=== PATIENT | male | born 1980 | race Caucasian/White ===

== ENCOUNTER 2021-09-14 15:10 | Inpatient (IN) | payer SELFPAY ==
[2021-09-14] MEDS ORDERED: DOPamine/D5W 800 MG/250 ML 0 MG/0 ML BAG IV ONE (15:22)
[2021-09-14] MEDS ORDERED: MIDAZOLAM 5 MG/5 ML INJ MDV IV ONE (15:31)
[2021-09-14] MEDS ORDERED: SODIUM CHLORIDE 0.9% 1000 ML 1,000 ML IV ONE (15:33)
--- NOTE | 2021-09-14 15:42 | Emergency Department Report ---
<SAMUEL SHEETS S - Last Filed: 09/15/21 08:24> ED CPR HPI - General Stated Complaint: CARDIAC ARREST Time Seen by Provider: 09/14/21 15:32 Source: family, RN notes reviewed - History of Present Illness MD Complaint: stopped breathing -: minute(s) (10) Place: street Bystander CPR Performed: Yes AED Applied by Bystander/Energy Conservation Engineer: Yes Initial Findings in the Field: agonal, VTACH/VFIB ROSC in the Field: No - Related Data Home Medications Medication Instructions Recorded Confirmed Last Taken Ipratropium/Albuter (Nf) 2 puff IH QID 09/15/21 09/15/21 Unknown [Combivent (Nf)] Allergies Allergy/AdvReac Type Severity Reaction Status Date / Time No Known Allergies Allergy Unverified 09/14/21 16:23 ED Review of Systems Constitutional: denies: chills, fever Eyes: denies: eye pain, eye discharge, vision change ENT: denies: ear pain, throat pain Respiratory: denies: cough, shortness of breath, wheezing Cardiovascular: denies: chest pain, palpitations Endocrine: no symptoms reported Gastrointestinal: denies: abdominal pain, nausea, diarrhea Genitourinary: denies: urgency, dysuria Musculoskeletal: denies: back pain, joint swelling, arthralgia Skin: denies: rash, lesions Neurological: denies: headache, weakness, paresthesias Psychiatric: denies: anxiety, depression Hematological/Lymphatic: denies: easy bleeding, easy bruising ED Past Medical Hx - Past Medical History Previous Medical History?: No - Medications Home Medications: Home Medications Medication Instructions Recorded Confirmed Last Taken Type Ipratropium/Albuter (Nf) 2 puff IH QID 09/15/21 09/15/21 Unknown History [Combivent (Nf)] ED Physical Exam - General General appearance: alert, in no apparent distress - Head Head exam: Present: atraumatic, normocephalic - Eye Eye exam: Present: normal appearance - ENT ENT exam: Present: mucous membranes moist - Neck Neck exam: Present: normal inspection - Respiratory Respiratory exam: Present: normal lung sounds bilaterally. Absent: respiratory distress - Cardiovascular Cardiovascular Exam: Present: regular rate, normal rhythm. Absent: systolic murmur, diastolic murmur, rubs, gallop - GI/Abdominal GI/Abdominal exam: Present: soft, normal bowel sounds - Rectal Rectal exam: Present: deferred - Extremities Exam Extremities exam: Present: normal inspection - Back Exam Back exam: Present: normal inspection - Neurological Exam Neurological exam: Present: alert, oriented X3 - Psychiatric Psychiatric exam: Present: normal affect, normal mood - Skin Skin exam: Present: warm, dry, intact, normal color. Absent: rash ED Medical Decision Making - Lab Data Result diagrams: 09/15/21 00:08 09/15/21 03:36 ED Disposition Clinical Impression: Cardiopulmonary arrest, Hypokalemia STEMI (ST elevation myocardial infarction) Qualifiers: Involved coronary artery: right coronary artery Qualified Code(s): I21.11 - ST elevation (STEMI) myocardial infarction involving right coronary artery Disposition: ADMITTED INPATIENT Condition: Stable <ASHKAN DIXON - Last Filed: 09/15/21 11:37> ED CPR HPI - General Source: family - History of Present Illness Initial Comments: Patient is 41 years old male with no significant past medical history according to his . Patient brought to the emergency room by his in the backseat in a full cardiac arrest. stated that he all of a sudden started jerking and his eyes rolled back. Patient drove immediately to the emergency room and I met the patient in his car and CPR was already started by one of the EMS standing in the ambulance bay. Patient found with agonal breathing. We immedi ately moved patient to main ER. ACLS immediately started. Patient received positive pressure ventilation IV access obtained patient put on the monitor and showed V. fib. Patient immediately received 200 J and 300 mg of amiodarone. Patient still in V. fib and he received 300 J and 360 several times and lidocaine. Patient also received D50, bicarb and calcium chloride. Patient intubated by me using a glide scope. I visualized the tube passing through the vocal cords. Patient regained his pulse. I placed a right femoral central line for resuscitation. For further information please refer to code sheets. Complaint: stopped breathing -: minute(s) Place: street Bystander CPR Performed: Yes Initial Findings in the Field: agonal, VTACH/VFIB ROSC in the Field: No Associated Injuries: No ED Review of Systems ROS: Stated complaint: CARDIAC ARREST Other details as noted in HPI Comment: Unobtainable due to pts medical conditions ED Physical Exam - General General appearance: other (CPR in progress) - Head Head exam: Present: atraumatic, normocephalic, normal inspection - ENT ENT exam: Present: mucous membranes moist - Respiratory Respiratory exam: Present: other (No spontaneous breathing) - Cardiovascular Cardiovascular Exam: Present: other (No spontaneous heart tone) - Neurological Exam Neurological exam: Present: other (Intubated with GCS of 3) - Skin Skin exam: Present: warm, dry, intact, normal color ED Course Vital Signs 09/14/21 15:40 O2 Sat by Pulse 98 Oximetry - Consultations Consultation #1: 09/14/21 15:46 EKG showed anterior STEMI. I immediately activated the cardiac catheterization lab. I sent the EKG to Dr. Ellington, he reviewed the EKG he stated that he is not convinced this is STEMI could be hyperkalemia so he stated that he wanted to proceed with cardiac cath and not to move the patient until we get labs. - Central Line Placement Right Femoral Consent Obtained: emergent situation Time Out Performed: Yes MD Prep: mask, gown, gloves Central Line Prep: Povidone-Iodine 1%, Chlorhexidine scrub, sterile drapes applied Local Anesthesia Used: Lidocaine 2% Central Line Lumen Inserted: triple Reason for Insertion: Volume Resuscitation Bloods Obtained for Lab: Yes Central Line Position: good blood return, all ports aspirated, flus, sutured in place with 2-0 Dressing Applied: Tegaderm, sterile gauze/tape Patient Tolerated Procedure: well, no complications Complications: none - Intubation Sedative: Etomidate Laryngoscope: Tamika Size: 4 ET Tube Size: 7.5 Tube Placement Confirmation: visualized tube passing t, equal breath sounds bilat, no breath sounds over epi, confirmation by capnometr Patient Tolerated Procedure: well, no complications Intubation Complications: none ED Medical Decision Making - Lab Data Result diagrams: 09/15/21 00:08 09/15/21 03:36 Critical Care Time: Yes Critical care time in (mins) excluding proc time.: 45 Critical care attestation.: If time is entered above; I have spent that time in minutes in the direct care of this critically ill patient, excluding procedure time. ED Disposition Is pt being admited?: Yes
--- NOTE | 2021-09-14 16:21 | Emergency Department Report ---
ED CPR HPI - General Chief Complaint: Cardiac Arrest/CPR Stated Complaint: CARDIAC ARREST Time Seen by Provider: 09/14/21 15:32 Source: family Mode of arrival: Stretcher Limitations: Other - History of Present Illness Initial Comments: Note is a follow up sign out note after I assumed care of patient. Initial ED note completed by Dr Joe 41-year-old man status post cardiopulmonary arrest. I assisted Dr. Joe with resuscitation efforts and accepted patient for sign out for continued management. I spoke to patient's who states while eating lunch today patient had complaints of indigestion. He took Pepcid and vomited and felt better. Patient started to feel bad again complaining of chest pain and got in the backseat to lay down. states his eyes began to roll back and became unresponsive and therefore she drove to the hospital. states patient has a history of asthma. She denies that he has a history of [place]/CAD at a young age/in the 40s. He does not smoke cigarettes but does smoke marijuana. A week ago they used home grow mushrooms. She denies cocaine use MD Complaint: stopped breathing Place: street Bystander CPR Performed: Yes Initial Findings in the Field: agonal, VTACH/VFIB ROSC in the Field: No Associated Injuries: No - Related Data Allergies Allergy/AdvReac Type Severity Reaction Status Date / Time No Known Allergies Allergy Unverified 09/14/21 16:23 ED Review of Systems ROS: Stated complaint: CARDIAC ARREST Other details as noted in HPI Comment: Unobtainable due to pts medical conditions ED Physical Exam - General Limitations: Other General appearance: other (CPR in progress) - Other Other exam information: f/u sign out chart, please refer to Dr Joe note for Physical exam. ED Course - Reevaluation(s) Reevaluation #1: 09/14/21 16:27 Patient initially had a prolonged course of ACLS with cardiopulmonary resuscitation directed by Dr. Joe with my assistance. At 4 PM patient had recurrent PEA and required additional resuscitation efforts. Patient received calcium chloride, epinephrine, and sodium bicarb with return of spontaneous circulation. Patient currently on dopamine drip and epinephrine drip. Propofol held. Amiodarone drip to be initiated. Case was rediscussed with Dr. Ellington regarding additional history and he is on the way to the hospital to take patient to Chemical Research Engineer. I called lab requesting stat results given patient's critical condition Reevaluation #2: 09/14/21 16:47 Patient has hypokalemia. 40 mEq of potassium ordered via central line. Magnesium level requested. 09/14/21 16:[address] Chemical Research Engineer prior to administration of potassium And Mag Result. Cath nurse informed of potassium at 2.7 and pending mag ABG pending - Consultations Consultation #1: 09/14/21 16:36 case we discussed with Dr. Ellington after speaking to . Informed that patient had a second cardiac arrest episode. He is on the way to the hospital to perform cath. 09/14/21 I attempted to page Dr. Jacobsen production recorder For ICU consult. I placed the patient myself and did not receive a call back prior to patient admission. Consult ordered ED Medical Decision Making - Lab Data Result diagrams: 09/14/21 15:35 09/14/21 15:35 Lab Results 09/14/21 09/14/21 09/14/21 Range/Units 15:35 15:35 15:35 WBC 6.2 (4.5-11.0) K/mm3 RBC 4.40 (3.65-5.03) M/mm3 Hgb 13.2 (11.8-15.2) gm/dl Hct 43.4 (35.5-45.6) % MCV 99 H (84-94) fl MCH 30 (28-32) pg MCHC 30 L (32-34) % RDW 13.5 (13.2-15.2) % Plt Count 149 (140-440) K/mm3 Lymph % (Auto) 46.5 H (13.4-35.0) % [place] % (Auto) 6.6 (0.0-7.3) % Eos % (Auto) 1.1 (0.0-4.3) % Baso % (Auto) 0.6 (0.0-1.8) % Lymph # (Auto) 2.9 (1.2-5.4) K/mm3 [place] # (Auto) 0.4 (0.0-0.8) K/mm3 Eos # (Auto) 0.1 (0.0-0.4) K/mm3 Baso # (Auto) 0.0 (0.0-0.1) K/mm3 Seg Neutrophils % 45.2 (40.0-70.0) % Seg Neutrophils # 2.8 (1.8-7.7) K/mm3 PT 16.4 H (12.2-14.9) Sec. INR 1.19 H (0.87-1.13) APTT 26.6 (24.2-36.6) Sec. D-Dimer 1400.51 H (0-234) ng/mlDDU ABG pH (7.350-7.450) pH Units ABG pCO2 mm Hg ABG pO2 (80.0-90.0) mm Hg ABG HCO3 (20.0-26.0) mmol/L ABG O2 Saturation (95.0-99.0) % ABG O2 Content (0.0-44) ABG Base Excess (-2.0-3.0) mmol/L ABG Hemoglobin (14.0-18.0) gm/dl ABG Carboxyhemoglobin (0.0-5.0) % ABG Methemoglobin (0.0-1.5) % Oxyhemoglobin (95.0-99.0) % FiO2 % Sodium 138 (137-145) mmol/L Potassium 2.7 L* (3.6-5.0) mmol/L Chloride 95.1 L (98-107) mmol/L Carbon Dioxide 16 L (22-30) mmol/L Anion Gap 30 mmol/L BUN 17 (9-20) mg/dL Creatinine 1.5 H (0.8-1.3) mg/dL Estimated GFR 51 ml/min BUN/Creatinine Ratio 11 % Glucose 432 H (75-100) mg/dL Calcium 10.0 (8.4-10.2) mg/dL Magnesium (1.7-2.3) mg/dL Total Bilirubin (0.1-1.2) mg/dL Direct Bilirubin (0-0.2) mg/dL Indirect Bilirubin mg/dL AST (5-40) units/L ALT (7-56) units/L Alkaline Phosphatase (35-129) units/L Troponin T < 0.010 (0.00-0.029) ng/mL Total Protein (6.3-8.2) g/dL Albumin (3.9-5) g/dL Albumin/Globulin Ratio % Salicylates (2.8-20.0) mg/dL Acetaminophen (10.0-30.0) ug/mL 09/14/21 09/14/21 09/14/21 Range/Units 15:35 15:35 15:35 WBC (4.5-11.0) K/mm3 RBC (3.65-5.03) M/mm3 Hgb (11.8-15.2) gm/dl Hct (35.5-45.6) % MCV (84-94) fl MCH (28-32) pg MCHC (32-34) % RDW (13.2-15.2) % Plt Count (140-440) K/mm3 Lymph % (Auto) (13.4-35.0) % [place] % (Auto) (0.0-7.3) % Eos % (Auto) (0.0-4.3) % Baso % (Auto) (0.0-1.8) % Lymph # (Auto) (1.2-5.4) K/mm3 [place] # (Auto) (0.0-0.8) K/mm3 Eos # (Auto) (0.0-0.4) K/mm3 Baso # (Auto) (0.0-0.1) K/mm3 Seg Neutrophils % (40.0-70.0) % Seg Neutrophils # (1.8-7.7) K/mm3 PT (12.2-14.9) Sec. INR (0.87-1.13) APTT (24.2-36.6) Sec. D-Dimer (0-234) ng/mlDDU ABG pH (7.350-7.450) pH Units ABG pCO2 mm Hg ABG pO2 (80.0-90.0) mm Hg ABG HCO3 (20.0-26.0) mmol/L ABG O2 Saturation (95.0-99.0) % ABG O2 Content (0.0-44) ABG Base Excess (-2.0-3.0) mmol/L ABG Hemoglobin (14.0-18.0) gm/dl ABG Carboxyhemoglobin (0.0-5.0) % ABG Methemoglobin (0.0-1.5) % Oxyhemoglobin (95.0-99.0) % FiO2 % Sodium (137-145) mmol/L Potassium (3.6-5.0) mmol/L Chloride (98-107) mmol/L Carbon Dioxide (22-30) mmol/L Anion Gap mmol/L BUN (9-20) mg/dL Creatinine (0.8-1.3) mg/dL Estimated GFR ml/min BUN/Creatinine Ratio % Glucose (75-100) mg/dL Calcium (8.4-10.2) mg/dL Magnesium (1.7-2.3) mg/dL Total Bilirubin 0.30 (0.1-1.2) mg/dL Direct Bilirubin < 0.2 (0-0.2) mg/dL Indirect Bilirubin 0.1 mg/dL AST 121 H (5-40) units/L ALT 142 H (7-56) units/L Alkaline Phosphatase 64 (35-129) units/L Troponin T (0.00-0.029) ng/mL Total Protein 5.8 L (6.3-8.2) g/dL Albumin 3.2 L (3.9-5) g/dL Albumin/Globulin Ratio 1.2 % Salicylates < 0.3 L (2.8-20.0) mg/dL Acetaminophen 5.0 L (10.0-30.0) ug/mL 09/14/21 09/14/21 Range/Units 15:35 16:30 WBC (4.5-11.0) K/mm3 RBC (3.65-5.03) M/mm3 Hgb (11.8-15.2) gm/dl Hct (35.5-45.6) % MCV (84-94) fl MCH (28-32) pg MCHC (32-34) % RDW (13.2-15.2) % Plt Count (140-440) K/mm3 Lymph % (Auto) (13.4-35.0) % [place] % (Auto) (0.0-7.3) % Eos % (Auto) (0.0-4.3) % Baso % (Auto) (0.0-1.8) % Lymph # (Auto) (1.2-5.4) K/mm3 [place] # (Auto) (0.0-0.8) K/mm3 Eos # (Auto) (0.0-0.4) K/mm3 Baso # (Auto) (0.0-0.1) K/mm3 Seg Neutrophils % (40.0-70.0) % Seg Neutrophils # (1.8-7.7) K/mm3 PT (12.2-14.9) Sec. INR (0.87-1.13) APTT (24.2-36.6) Sec. D-Dimer (0-234) ng/mlDDU ABG pH 7.283 L (7.350-7.450) pH Units ABG pCO2 42.6 mm Hg ABG pO2 376.5 H (80.0-90.0) mm Hg ABG HCO3 19.7 L (20.0-26.0) mmol/L ABG O2 Saturation 99.5 H (95.0-99.0) % ABG O2 Content 21.0 (0.0-44) ABG Base Excess -6.7 L (-2.0-3.0) mmol/L ABG Hemoglobin 14.6 (14.0-18.0) gm/dl ABG Carboxyhemoglobin 1.1 (0.0-5.0) % ABG Methemoglobin 0.6 (0.0-1.5) % Oxyhemoglobin 97.8 (95.0-99.0) % FiO2 100 % Sodium (137-145) mmol/L Potassium (3.6-5.0) mmol/L Chloride (98-107) mmol/L Carbon Dioxide (22-30) mmol/L Anion Gap mmol/L BUN (9-20) mg/dL Creatinine (0.8-1.3) mg/dL Estimated GFR ml/min BUN/Creatinine Ratio % Glucose (75-100) mg/dL Calcium (8.4-10.2) mg/dL Magnesium 2.30 (1.7-2.3) mg/dL Total Bilirubin (0.1-1.2) mg/dL Direct Bilirubin (0-0.2) mg/dL Indirect Bilirubin mg/dL AST (5-40) units/L ALT (7-56) units/L Alkaline Phosphatase (35-129) units/L Troponin T (0.00-0.029) ng/mL Total Protein (6.3-8.2) g/dL Albumin (3.9-5) g/dL Albumin/Globulin Ratio % Salicylates (2.8-20.0) mg/dL Acetaminophen (10.0-30.0) ug/mL - EKG Data -: EKG Interpreted by Me EKG shows normal: sinus rhythm, ST-T waves (anterior lat st elevation) Rate: normal - EKG Data When compared to previous EKG there are: previous EKG unavailable - Medical Decision Making 41-year-old male who had [id number] arrest presenting via private vehicle. Patient initially resuscitated by Dr. Joe with my assistance. I assumed care upon completion of Dr. Joe's shift. After successful resuscitation patient was transferred to the Chemical Research Engineer after EKG revealed anterolateral ST elevation. Patient also noted to have hypokalemia. IV potassium ordered. Case was discussed with patient's , refinery operator assistant, hospitalist with attempted discussion with ICU attending. Critical care's consult was ordered. PT admitted to CCU Critical Care Time: Yes Critical care time in (mins) excluding proc time.: 35 Critical care attestation.: If time is entered above; I have spent that time in minutes in the direct care of this critically ill patient, excluding procedure time. Critical Care Time: 35 Minutes of critical care time excluding procedures were used in the care of the patient. I came immediately to the bedside upon patient's arrival. I discussed treatment plan with the nursing team members. I spoke with family to obtain medical history. Patient required multiple interventions and reassessments. I spoke to cardiac interventionalists, critical care doctor, and hospitalist. ED Disposition Clinical Impression: Cardiopulmonary arrest, STEMI (ST elevation myocardial infarction), Hypokalemia Disposition: ADMITTED INPATIENT Is pt being admited?: Yes Condition: Stable Time of Disposition: 16:56
[2021-09-14 16:24] LABS: Basophils % (Auto) 0.6 % (0.0-1.8); Eosinophils # (Auto) 0.1 K/mm3 (0.0-0.4); Eosinophils % (Auto) 1.1 % (0.0-4.3); Lymphocytes # (Auto) 2.9 K/mm3 (1.2-5.4); Lymphocytes % (Auto) 46.5 % (13.4-35.0); Mean Corpuscular HGB Conc 30 % (32-34); Mean Corpuscular Volume 99 fl (84-94); Monocytes # (Auto) 0.4 K/mm3 (0.0-0.8); Monocytes % (Auto) 6.6 % (0.0-7.3); Platelet Count 149 K/mm3 (140-440); Red Cell Distribution Width 13.5 % (13.2-15.2)
[2021-09-14 16:38] LABS: BUN/Creatinine Ratio 11; Blood Urea Nitrogen 17 mg/dL (9-20); Hemoglobin 13.2 gm/dl (11.8-15.2); Hemolysis Index 32
[2021-09-14] MEDS ORDERED: HEPARIN 10,000 UNITS/10 ML VIAL ONE (16:38)
[2021-09-14] MEDS ORDERED: fentaNYL 100 MCG/2 ML INJ ONE (16:38)
[2021-09-14] MEDS ORDERED: HEPARIN/NS 5000 UNIT/500ML 1,500 ML IR ONE (16:38)
[2021-09-14 16:39] LABS: Hematocrit 43.4 % (35.5-45.6)
[2021-09-14] MEDS ORDERED: LIDOCAINE (2%) 20 MG/1 ML VIAL 20 ML MDV INFILTRATI ONE (16:39)
[2021-09-14 16:40] LABS: Alanine Aminotransferase 142 units/L (7-56); Albumin 3.2 g/dL (3.9-5); Bilirubin,Direct < 0.2 mg/dL (0-0.2)
[2021-09-14 16:41] LABS: INR 1.19 (0.87-1.13)
[2021-09-14 16:42] LABS: Partial Thromboplastin Time 26.6 Sec. (24.2-36.6)
[2021-09-14 16:51] LABS: ABG Base Excess -6.7 mmol/L (-2.0-3.0); ABG HCO3 19.7 mmol/L (20.0-26.0); ABG Methemoglobin 0.6 % (0.0-1.5); ABG Oxygen Saturation 99.5 % (95.0-99.0); ABG PCO2 42.6 mm Hg; ABG PH 7.283 pH Units (7.350-7.450)
[2021-09-14] MEDS ORDERED: EPINEPHrine 1 MG/1 ML 8 MG in SODIUM CHLORIDE 0.9% 250ML 242 ML IV ONE (17:00)
[2021-09-14 17:01] LABS: ABG PO2 376.5 mm Hg (80.0-90.0)
[2021-09-14] MEDS ORDERED: SODIUM CHLORIDE 0.9% 1000 ML 1,000 ML ONE (17:03)
[2021-09-14] MEDS: MIDAZOLAM 2 MG/2 ML INJ ONE ×2 (17:22→19:14)
[2021-09-14 17:25] LABS: Amphetamine Screen,Urine Negative; Benzodiazepines Screen,Urine Negative; Cocaine Screen,Urine Negative; Methadone Screen,Urine Negative; Opiate Screen,Urine Negative
[2021-09-14] MEDS ORDERED: NITROGLYCERIN DRIP 50 MG/250 ML BOTTLE ONE (17:35)
[2021-09-14 17:36] LABS: Cannabinoid Screen,Urine Positive
[2021-09-14] MEDS ORDERED: METOPROLOL TARTRATE 5 MG/5 ML INJ IV ONE (17:53)
[2021-09-14] MEDS ORDERED: TIROFIBAN/NS 12,500 MCG/250 ML BAG IV ONE (18:01)
[2021-09-14] MEDS ORDERED: MIDAZOLAM 2 MG/2 ML INJ ONE ×3 (18:02→19:03)
[2021-09-14] MEDS ORDERED: CLOPIDOGREL 300 MG TAB ONE (18:02)
[2021-09-14] MEDS ORDERED: ASPIRIN 81 MG TAB CHEW ONE (18:02)
[2021-09-14] MEDS ORDERED: HYDROcodone/ACETAMINOPHEN 5-325 MG TAB PO PRN (18:05)
[2021-09-14] MEDS: POTASSIUM CHLORIDE 20 MEQ 20 MEQ/100 ML BAG IV SCH ×2 (18:05→21:00)
[2021-09-14 18:08] LABS: Bacteria,Urine 2+ /HPF (Negative); Mucus,Urine 3+ /HPF
[2021-09-14] MEDS ORDERED: POTASSIUM CHLORIDE ER 20 MEQ TAB PO ONE (18:09)
[2021-09-14] MEDS ORDERED: SODIUM CHLORIDE 0.9% 1000 ML 1,000 ML IV SCH (18:15)
--- NOTE | 2021-09-14 18:16 | Consultation ---
History of Present Illness Consult date: 09/14/21 Consult reason: cardiac arrest History of present illness: The patient is a 41-year-old man who presented to the emergency room with ventricular fibrillation arrest which apparently occurred in his car on arrival to the emergency room. Subsequent EKG showed a nonspecific intraventricular conduction delay, but hyperacute T waves in the anterolateral leads suggestive of an acute anterolateral wall myocardial infarction. Emergency cardiac catheterization protocol was activated. His transition to the cardiac Entry Level Lab Technician was delayed by recurrent ventricular fibrillation arrest in the emergency room and the finding of severe hypokalemia of 2.7 requiring treatment. At cardiac catheterization we found complete occlusion of the LAD in its proximal segment, which was the infarct-related lesion. Successful ad hoc primary angioplasty was performed, with coronary stenting which resulted in taoist of PRISCILLA-3 antegrade flow, excellent angiographic result, no complications. The patient is admitted to the CCU on guideline directed medical therapy including 18 infusion of Aggrastat for extensive intraluminal thrombus noted in the lesional site. Past History Past Medical History: other (Family history of coronary disease) Medications and Allergies Allergies Allergy/AdvReac Type Severity Reaction Status Date / Time No Known Allergies Allergy Unverified 09/14/21 16:23 Active Meds: Active Medications Amiodarone HCl 360 mg/ (Dextrose) 200 mls @ 33.333 mls/hr IV DIRECT CSASANDRA; Protocol Propofol (Diprivan 10 Mg/Ml) 1,000 mg in 100 mls @ 2.22 mls/hr IV TITR CASSANDRA; Protocol Potassium Chloride (Kcl 20meq/100ml) 20 meq in 100 mls @ 100 mls/hr IV Q1H CASSANDRA Stop: 09/14/21 18:59 Epinephrine 8 mg/ Sodium (Chloride) 250 mls @ 3.75 mls/hr IV TITR ONE; Protocol Stop: 09/17/21 11:39 Review of Systems ROS unobtainable: due to endotracheal tube, due to mental status Physical Examination General appearance: other (Patient is sedated, intubated on the vent) HEENT: Positive: Other Neck: Positive: neck supple Cardiac: Positive: Reg Rate and Rhythm Lungs: Positive: clear to auscultation Neuro: Positive: Other (Patient is sedated, intubated on the vent) Abdomen: Positive: Soft Male genitourinary: Positive: deferred Skin: Positive: Clear Extremities: Absent: edema Results 09/14/21 15:35 09/14/21 15:35 Cardiac Enzymes 09/14/21 Range/Units 15:35 AST 121 H (5-40) units/L Coagulation 09/14/21 Range/Units 15:35 PT 16.4 H (12.2-14.9) Sec. INR 1.19 H (0.87-1.13) APTT 26.6 (24.2-36.6) Sec. CBC 09/14/21 Range/Units 15:35 WBC 6.2 (4.5-11.0) K/mm3 RBC 4.40 (3.65-5.03) M/mm3 Hgb 13.2 (11.8-15.2) gm/dl Hct 43.4 (35.5-45.6) % Plt Count 149 (140-440) K/mm3 Lymph # (Auto) 2.9 (1.2-5.4) K/mm3 [place] # (Auto) 0.4 (0.0-0.8) K/mm3 Eos # (Auto) 0.1 (0.0-0.4) K/mm3 Baso # (Auto) 0.0 (0.0-0.1) K/mm3 Comprehensive Metabolic Panel 09/14/21 09/14/21 Range/Units 15:35 15:35 Sodium 138 (137-145) mmol/L Potassium 2.7 L* (3.6-5.0) mmol/L Chloride 95.1 L (98-107) mmol/L Carbon Dioxide 16 L (22-30) mmol/L BUN 17 (9-20) mg/dL Creatinine 1.5 H (0.8-1.3) mg/dL Glucose 432 H (75-100) mg/dL Calcium 10.0 (8.4-10.2) mg/dL Direct Bilirubin < 0.2 (0-0.2) mg/dL Indirect Bilirubin 0.1 mg/dL AST 121 H (5-40) units/L ALT 142 H (7-56) units/L Alkaline Phosphatase 64 (35-129) units/L Total Protein 5.8 L (6.3-8.2) g/dL Albumin 3.2 L (3.9-5) g/dL EKG interpretations - Telemetry EKG Rhythm: Sinus Rhythm (With nonspecific intraventricular conduction delay, hyperacute T waves suggestive of acute myocardial infarction) Assessment and Plan - Patient Problems (1) STEMI (ST elevation myocardial infarction) Current Visit: Yes Status: Acute Plan to address problem: Patient presented with ventricular fibrillation arrest, due to acute anterolateral wall ST elevation myocardial infarction. Cardiac catheterization post resuscitation showed complete occlusion of the LAD in its proximal segment, followed by successful angioplasty and stenting and taoist of PRISCILLA-3 flow. Patient will be placed on guideline directed medical therapy, echocardiogram will be done for left ventricular function assessment, continue supportive care by the critical care team while patient is intubated on the vent.
[2021-09-14 18:17] LABS: Bilirubin,Urine NEG (Negative); Blood,Urine NEG (Negative); Color,Urine Yellow (Yellow); Urobilinogen,Urine < 2.0 mg/dL (<2.0)
[2021-09-14] MEDS ORDERED: oxyCODONE /ACETAMINOPHEN 5-325MG TAB PO PRN (18:53)
[2021-09-14] MEDS ORDERED: ACETAMINOPHEN 325 MG TAB PO PRN (18:53)
[2021-09-14] MEDS ORDERED: METOCLOPRAMIDE 10 MG/2 ML INJ IV PRN (18:53)
[2021-09-14] MEDS ORDERED: ONDANSETRON 4 MG/2 ML INJ IV PRN (18:53)
[2021-09-14] MEDS ORDERED: HYDROmorphone 1 MG/1 ML INJ IV PRN (18:53)
[2021-09-14] MEDS ORDERED: TIROFIBAN/NS 12,500 MCG/250 ML BAG IV SCH (19:00)
[2021-09-14] MEDS ORDERED: PANTOPRAZOLE 40 MG TAB PO SCH (19:00)
--- NOTE | 2021-09-14 20:45 | XRay Report ---
Abdomen 1 view INDICATION: Tube placement FINDINGS: The tip of the NG tube is within the proximal stomach. Sidehole is in the distal esophagus and should be advanced. The stomach is distended Chest 1 view INDICATION: Chest pain FINDINGS: Mild increased perihilar interstitial prominence with increased interstitial prominence ext ending to the left mid and upper lung. No pneumothorax. Signer Name: Cooper Aldana MD Signed: 09/14/2021 8:41 PM Workstation Name: [id number]
[2021-09-14] MEDS: AMIODARONE 360 MG in DEXTROSE 5% IN WATER 192.8 ML IV SCH (21:00)
[2021-09-14 21:56] LABS: Chol/HDL Ratio 3.17 %
[2021-09-14] MEDS ORDERED: METOPROLOL TARTRATE 50 MG TAB PO SCH (22:00)
[2021-09-14] MEDS ORDERED: FAMOTIDINE 20 MG/2 ML INJ IV SCH (22:00)
[2021-09-14] MEDS: HEPARIN 5,000 UNIT/1 ML VIAL SUB-Q SCH (22:24)
[2021-09-14 23:41] LABS: Calcium 9.1 mg/dL (8.4-10.2)
[2021-09-15 00:21] LABS: Hematocrit 47.3 % (35.5-45.6); Mean Corpuscular HGB Conc 32 % (32-34); Mean Corpuscular Volume 95 fl (84-94); Platelet Count 224 K/mm3 (140-440); Red Blood Count 4.96 M/mm3 (3.65-5.03); Red Cell Distribution Width 12.5 % (13.2-15.2)
--- NOTE | 2021-09-15 01:22 | History and Physical Report ---
History of Present Illness Date of examination: 09/14/21 Date of admission: 09/14/21 18:41 Chief complaint: Cardiac Arrest History of present illness: Patient is 41 years old male with no significant past medical history according to his . Patient brought to the emergency room by his in the backseat in a full cardiac arrest. stated that he all of a sudden started jerking and his eyes rolled back. Patient drove immediately to the emergency room and I met the patient in his car and CPR was already started by one of the EMS standing in the ambulance bay. Patient found with agonal breathing. We immediately moved patient to main ER. ACLS immediately started. Patient received positive pressure ventilation IV access obtained patient put on the monitor and showed V. fib. Patient immediately received 200 J and 300 mg of amiodarone. Patient still in V. fib and he received 300 J and 360 several times and lidocaine. Patient also received D50, bicarb and calcium chloride. Patient intubated by me using a glide scope. I visualized the tube passing through the vocal cords. Patient regained his pulse. I placed a right femoral central line for resuscitation. For further information please refer to code sheets. Complaint: stopped breathing -: minute(s) Place: street Bystander CPR Performed: Yes Initial Findings in the Field: agonal, VTACH/VFIB ROSC in the Field: No Associated Injuries: No Review of Systems ROS: Stated complaint: CARDIAC ARREST Other details as noted in HPI Comment: Unobtainable due to pts medical conditions Past History Past Medical History: COPD, other (Family history of coronary disease) Past Surgical History: No surgical history Social history: no significant social history, lives with family, full code Medications and Allergies Allergies Allergy/AdvReac Type Severity Reaction Status Date / Time No Known Allergies Allergy Unverified 09/14/21 16:23 Home Medications Medication Instructions Recorded Confirmed Last Taken Type Ipratropium/Albuter (Nf) 2 puff IH QID 09/15/21 09/15/21 Unknown History [Combivent (Nf)] Active Meds: Active Medications Acetaminophen (Acetaminophen 325 Mg Tab) 650 mg PO Q4H PRN PRN Reason: Pain MILD(1-3)/Fever >100.5/BHATIA Hydrocodone Bitart/Acetaminophen (Hydrocodone/Acetaminophen 5-325 Mg Tab) 1 each PO Q6H PRN PRN Reason: Pain, Moderate (4-6) Aspirin (Aspirin 81 Mg Tab Chew) 162 mg PO QDAY CASSANDRA Atorvastatin Calcium (Atorvastatin 40 Mg Tab) 40 mg PO QHS [facility] Last Admin: 09/14/21 22:25 Dose: Not Given Documented by: Clopidogrel Bisulfate (Clopidogrel 75 Mg Tab) 75 mg PO QDAY CASSANDRA Famotidine (Famotidine 20 Mg/2 Ml Inj) 20 mg IV BID CASSANDRA Last Admin: 09/14/21 22:23 Dose: 20 mg Documented by: Heparin Sodium (Porcine) (Heparin 5,000 Unit/1 Ml Vial) 5,000 unit SUB-Q Q12HR CASSANDRA Last Admin: 09/14/21 22:24 Dose: Not Given Documented by: Hydromorphone HCl (Hydromorphone 1 Mg/1 Ml Inj) 0.5 mg IV Q3H PRN PRN Reason: Pain , Severe (7-10) Amiodarone HCl 360 mg/ (Dextrose) 200 mls @ 33.333 mls/hr IV DIRECT CASSANDRA; Protocol Last Admin: 09/14/21 21:00 Dose: 1 mg/min, 33.333 mls/hr Documented by: Propofol (Diprivan 10 Mg/Ml) 1,000 mg in 100 mls @ 2.22 mls/hr IV TITR CASSANDRA; Protocol Last Titration: 09/14/21 21:25 Dose: 25 mcg/kg/min, 11.1 mls/hr Documented by: Epinephrine 8 mg/ Sodium (Chloride) 250 mls @ 3.75 mls/hr IV TITR ONE; Protocol Stop: 09/17/21 11:39 Last Titration: 09/15/21 00:00 Dose: 1 mcg/min, 1.875 mls/hr Documented by: Sodium Chloride (Nacl 0.9% 1000 Ml) 1,000 mls @ 100 mls/hr IV DIRECT CASSANDRA Stop: 09/15/21 09:14 Last Admin: 09/14/21 22:23 Dose: 100 mls/hr Documented by: Tirofiban/Sodium Chloride (Aggrastat Drip (12.5 Mg/250 Ml)) 12,500 mcg in 250 mls @ 13.5 mls/hr IV DIRECT CASSANDRA; Protocol Stop: 09/15/21 12:59 Last Admin: 09/14/21 20:06 Dose: 13.5 mls/hr Documented by: Lisinopril (Lisinopril 5 Mg Tab) 5 mg PO QDAY [facility] Metoclopramide HCl (Metoclopramide 10 Mg/2 Ml Inj) 10 mg IV Q6H PRN PRN Reason: Nausea And Vomiting Metoprolol Tartrate (Metoprolol Tartrate 50 Mg Tab) 50 mg PO BID [facility] [place] Last Admin: 09/14/21 22:25 Dose: Not Given Documented by: Nitroglycerin (Nitroglycerin 0.4 Mg Patch 24hr) 0.4 mg TD DAILY@0600 [facility] Ondansetron HCl (Ondansetron 4 Mg/2 Ml Inj) 4 mg IV Q8H PRN PRN Reason: Nausea And Vomiting Oxycodone/Acetaminophen (Oxycodone /Acetaminophen 5-325mg Tab) 1 tab PO Q6H PRN PRN Reason: Pain, Moderate (4-6) Pantoprazole Sodium (Pantoprazole 40 Mg Tab) 40 mg PO QDAY [facility] [place] Last Admin: 09/14/21 22:25 Dose: Not Given Documented by: Sodium Chloride (Sodium Chloride 0.9% 10 Ml Flush Syringe) 10 ml IV BID [facility] [place] Last Admin: 09/14/21 22:25 Dose: 10 ml Documented by: Sodium Chloride (Sodium Chloride 0.9% 10 Ml Flush Syringe) 10 ml IV PRN PRN PRN Reason: LINE FLUSH Exam - Constitutional Vitals: Temp Pulse Resp BP Pulse Ox 97.9 F 101 H 18 99 09/14/21 23:50 09/14/21 23:00 09/14/21 23:00 09/14/21 23:00 General appearance: Present: no acute distress, well-nourished - EENT Eyes: Present: PERRL ENT: hearing intact, clear oral mucosa - Neck Neck: Present: supple, normal ROM - Respiratory Respiratory effort: normal Respiratory: bilateral: CTA - Cardiovascular Heart rate: 70 Rhythm: regular Heart Sounds: Present: S1 & S2. Absent: rub, click - Extremities Extremities: pulses symmetrical, No edema Peripheral Pulses: within normal limits - Abdominal General gastrointestinal: Present: soft, non-tender, non-distended, normal bowel sounds Male genitourinary: Present: normal - Integumentary Integumentary: Present: clear, warm, dry - Musculoskeletal Musculoskeletal: gait normal, strength equal bilaterally - Psychiatric Psychiatric: appropriate mood/affect, intact judgment & insight - Neurologic Neurologic: CNII-XII intact, moves all extremities - Allied Health Allied health notes reviewed: nursing, case management HEART Score - HEART Score History: Moderately suspicious Age: < 45 Risk factors: 1-2 risk factors Troponin: Troponin T 3.970 ng/mL (0.00-0.029) H* D 09/14/21 20:33 Troponin: 1-3x normal limit - Critical Actions Critical Actions: >7 pts:50-65% risk of adverse cardiac event. Early invasive measures Results - Labs CBC & Chem 7: 09/15/21 00:08 09/15/21 03:36 Labs: Laboratory Last Values WBC 16.2 K/mm3 (4.5-11.0) H 09/15/21 00:08 RBC 4.96 M/mm3 (3.65-5.03) 09/15/21 00:08 Hgb 15.0 gm/dl (11.8-15.2) 09/15/21 00:08 Hct 47.3 % (35.5-45.6) H 09/15/21 00:08 MCV 95 fl (84-94) H 09/15/21 00:08 MCH 30 pg (28-32) 09/15/21 00:08 MCHC 32 % (32-34) 09/15/21 00:08 RDW 12.5 % (13.2-15.2) L 09/15/21 00:08 Plt Count 224 K/mm3 (140-440) 09/15/21 00:08 Lymph % (Auto) 46.5 % (13.4-35.0) H 09/14/21 15:35 Powell % (Auto) 6.6 % (0.0-7.3) 09/14/21 15:35 Eos % (Auto) 1.1 % (0.0-4.3) 09/14/21 15:35 Baso % (Auto) 0.6 % (0.0-1.8) 09/14/21 15:35 Lymph # (Auto) 2.9 K/mm3 (1.2-5.4) 09/14/21 15:35 Powell # (Auto) 0.4 K/mm3 (0.0-0.8) 09/14/21 15:35 Eos # (Auto) 0.1 K/mm3 (0.0-0.4) 09/14/21 15:35 Baso # (Auto) 0.0 K/mm3 (0.0-0.1) 09/14/21 15:35 Seg Neutrophils % 45.2 % (40.0-70.0) 09/14/21 15:35 Seg Neutrophils # 2.8 K/mm3 (1.8-7.7) 09/14/21 15:35 PT 16.4 Sec. (12.2-14.9) H 09/14/21 15:35 INR 1.19 (0.87-1.13) H 09/14/21 15:35 APTT 26.6 Sec. (24.2-36.6) 09/14/21 15:35 D-Dimer 1400.51 ng/mlDDU (0-234) H 09/14/21 15:35 ABG pH 7.283 pH Units (7.350-7.450) L 09/14/21 16:30 ABG pCO2 42.6 mm Hg 09/14/21 16:30 ABG pO2 376.5 mm Hg (80.0-90.0) H 09/14/21 16:30 ABG HCO3 19.7 mmol/L (20.0-26.0) L 09/14/21 16:30 ABG O2 Saturation 99.5 % (95.0-99.0) H 09/14/21 16:30 ABG O2 Content 21.0 (0.0-44) 09/14/21 16:30 ABG Base Excess -6.7 mmol/L (-2.0-3.0) L 09/14/21 16:30 ABG Hemoglobin 14.6 gm/dl (14.0-18.0) 09/14/21 16:30 ABG Carboxyhemoglobin 1.1 % (0.0-5.0) 09/14/21 16:30 ABG Methemoglobin 0.6 % (0.0-1.5) 09/14/21 16:30 Oxyhemoglobin 97.8 % (95.0-99.0) 09/14/21 16:30 FiO2 100 % 09/14/21 16:30 Sodium 141 mmol/L (137-145) 09/14/21 22:29 Potassium 4.7 mmol/L (3.6-5.0) D 09/14/21 22:29 Chloride 104.4 mmol/L (98-107) 09/14/21 22:29 Carbon Dioxide 18 mmol/L (22-30) L 09/14/21 22:29 Anion Gap 23 mmol/L 09/14/21 22:29 BUN 19 mg/dL (9-20) 09/14/21 22:29 Creatinine 1.4 mg/dL (0.8-1.3) H 09/14/21 22:29 Estimated GFR 56 ml/min 09/14/21 22:29 BUN/Creatinine Ratio 14 % 09/14/21 22:29 Glucose 255 mg/dL (75-100) H 09/14/21 22:29 Calcium 9.1 mg/dL (8.4-10.2) 09/14/21 22:29 Magnesium 2.30 mg/dL (1.7-2.3) 09/14/21 15:35 Total Bilirubin 0.30 mg/dL (0.1-1.2) 09/14/21 15:35 Direct Bilirubin < 0.2 mg/dL (0-0.2) 09/14/21 15:35 Indirect Bilirubin 0.1 mg/dL 09/14/21 15:35 AST 121 units/L (5-40) H 09/14/21 15:35 ALT 142 units/L (7-56) H 09/14/21 15:35 Alkaline Phosphatase 64 units/L (35-129) 09/14/21 15:35 Troponin T 3.970 ng/mL (0.00-0.029) H* D 09/14/21 20:33 Total Protein 5.8 g/dL (6.3-8.2) L 09/14/21 15:35 Albumin 3.2 g/dL (3.9-5) L 09/14/21 15:35 Albumin/Globulin Ratio 1.2 % 09/14/21 15:35 Triglycerides 110 mg/dL (2-149) 09/14/21 20:33 Cholesterol 213 mg/dL (50-199) H 09/14/21 20:33 LDL Cholesterol Direct 134 mg/dL (50-130) H 09/14/21 20:33 HDL Cholesterol 67 mg/dL (40-59) H 09/14/21 20:33 Cholesterol/HDL Ratio 3.17 % 09/14/21 20:33 Urine Color Yellow (Yellow) 09/14/21 Unknown Urine Turbidity Slightly-cloudy (Clear) 09/14/21 Unknown Urine pH 6.0 (5.0-7.0) 09/14/21 Unknown Ur Specific [place] 1.028 (1.003-1.030) 09/14/21 Unknown Urine Protein 100 mg/dl mg/dL (Negative) 09/14/21 Unknown Urine Glucose (UA) Neg mg/dL (Negative) 09/14/21 Unknown Urine Ketones Tr mg/dL (Negative) 09/14/21 Unknown Urine Blood Neg (Negative) 09/14/21 Unknown Urine Nitrite Neg (Negative) 09/14/21 Unknown Ur Reducing Substances Not Reportable 09/14/21 Unknown Urine Bilirubin Neg (Negative) 09/14/21 Unknown Urine Ictotest Not Reportable 09/14/21 Unknown Urine Urobilinogen < 2.0 mg/dL (<2.0) 09/14/21 Unknown Ur Leukocyte Esterase Sm (Negative) 09/14/21 Unknown Urine WBC (Auto) 50.0 /HPF (0.0-6.0) H 09/14/21 Unknown Urine RBC (Auto) 12.0 /HPF (0.0-6.0) 09/14/21 Unknown U Epithel Cells (Auto) < 1.0 /HPF (0-13.0) 09/14/21 Unknown Urine Bacteria (Auto) 2+ /HPF (Negative) 09/14/21 Unknown Urine Mucus 3+ /HPF 09/14/21 Unknown Urine Yeast (Budding) Few /HPF 09/14/21 Unknown Salicylates < 0.3 mg/dL (2.8-20.0) L 09/14/21 15:35 Urine Opiates Screen Negative 09/14/21 Unknown Urine Methadone Screen Negative 09/14/21 Unknown Acetaminophen 5.0 ug/mL (10.0-30.0) L 09/14/21 15:35 Ur Barbiturates Screen Negative 09/14/21 Unknown Ur Phencyclidine Scrn Negative 09/14/21 Unknown Ur Amphetamines Screen Negative 09/14/21 Unknown U Benzodiazepines Scrn Negative 09/14/21 Unknown Urine Cocaine Screen Negative 09/14/21 Unknown U Marijuana (THC) Screen Positive 09/14/21 Unknown Drugs of Abuse Note Disclamer 09/14/21 Unknown Short CBC 09/14/21 09/15/21 Range/Units 15:35 00:08 WBC 6.2 16.2 H (4.5-11.0) K/mm3 Hgb 13.2 15.0 (11.8-15.2) gm/dl Hct 43.4 47.3 H (35.5-45.6) % Plt Count 149 224 (140-440) K/mm3 BMP 09/14/21 09/14/21 09/15/21 15:35 22:29 03:36 Sodium 138 141 141 Potassium 2.7 L* 4.7 D 5.1 H Chloride 95.1 L 104.4 105.8 Carbon Dioxide 16 L 18 L 21 L BUN 17 19 18 Creatinine 1.5 H 1.4 H 1.2 Glucose 432 H 255 H 182 H Calcium 10.0 9.1 8.8 Cardiac Enzymes 09/14/21 09/14/21 09/15/21 Range/Units 15:35 20:33 03:36 Troponin T < 0.010 3.970 H* D 12.440 H* D (0.00-0.029) ng/mL Liver Function 09/14/21 Range/Units 15:35 Total Bilirubin 0.30 (0.1-1.2) mg/dL Direct Bilirubin < 0.2 (0-0.2) mg/dL AST 121 H (5-40) units/L ALT 142 H (7-56) units/L Alkaline Phosphatase 64 (35-129) units/L Albumin 3.2 L (3.9-5) g/dL Urine 09/14/21 Range/Units Unknown Urine Color Yellow (Yellow) Urine pH 6.0 (5.0-7.0) Ur Specific [place] 1.028 (1.003-1.030) Urine Protein 100 mg/dl (Negative) mg/dL Urine Glucose (UA) Neg (Negative) mg/dL - Imaging and Cardiology EKG: report reviewed (ST elevayion ) Alvarado/IV: Voiding Method Indwelling Catheter Assessment and Plan Assessment and plan: Critical care statement The high probability OF a clinically significant sudden or life-threatening deterioration of the cardiorespiratory system and endocrine system required my full and direct attention, intervention and postoperative management. The aggr egate critical care time was 40 minutes. The time is in addition to time spent performing reported procedures but includes the followin: Data review and interpretation 2: Patient assessment and monitoring of vital signs 3: Documentation 4:: Medication orders and management Advance Directives: Yes (Full code) VTE prophylaxis?: Chemical Plan of care discussed with patient/family: Yes - Patient Problems (1) Cardiopulmonary arrest Current Visit: Yes Status: Acute Plan to address problem: Patient revived Multiple Cardiovesion and Amiodarone started Taken to Cath labs (2) Ventricular fibrillation Current Visit: Yes Status: Acute Plan to address problem: Multiple cardioversions followed by revival Cont Amiodarone (3) Hypokalemia Current Visit: Yes Status: Acute Plan to address problem: Supplemented (4) STEMI (ST elevation myocardial infarction) Current Visit: Yes Status: Acute Qualifiers: Involved coronary artery: right coronary artery Qualified Code(s): I21.11 - ST elevation (STEMI) myocardial infarction involving right coronary artery Plan to address problem: At cardiac catheterization had complete occlusion of the LAD in its proximal segment, which was the infarct-related lesion. Successful ad hoc primary angioplasty was performed, with coronary stenting which resulted in presybeterian of PRISCILLA-3 antegrade flow, excellent angiographic result, no complications. The patient is admitted to the CCU on guideline directed medical therapy including 18 infusion of Aggrastat for extensive intraluminal thrombus noted in the lesional site. (5) DVT prophylaxis Current Visit: Yes Status: Acute Plan to address problem: on Aggrastat and GI prophylaxis
[2021-09-15] MEDS ORDERED: EPINEPHrine 1 MG/10 ML SYRINGE ONE (02:20)
[2021-09-15] MEDS ORDERED: SODIUM BICARB 8.4% 50 MEQ/50 ML SYRINGE IV ONE (02:20)
[2021-09-15] MEDS ORDERED: CALCIUM CHLORIDE 1,000 MG/10 ML SYRINGE IV ONE (02:20)
[2021-09-15] MEDS ORDERED: DEXTROSE 50% IN WATER (25GM) 50 ML SYRINGE IV ONE (02:20)
[2021-09-15 02:52] LABS: Band Neutrophils # (Manual) 0.5 K/mm3; Total Cells Counted 100
[2021-09-15 02:53] LABS: Platelet Estimate Consistent w Auto; RBC Morphology Normal
[2021-09-15] MEDS: AMIODARONE 360 MG in DEXTROSE 5% IN WATER 192.8 ML IV SCH (02:54)
--- NOTE | 2021-09-15 04:32 | XRay Report ---
ABDOMEN, SINGLE VIEW INDICATION / CLINICAL INFORMATION: OG tube advanced per radiologist request. COMPARISON: 09/14/2021 at 2022 hours FINDINGS: The tip of NG tube is now in the midportion of the stomach and is in satisfactory position. NG tube h as been successfully advanced. Additionally, the stomach has decompressed and only contains a small amount of gas. IMPRESSION: Successful repositioning of NG tube. Signer Name: Zuleyka Guido MD Signed: 09/15/2021 4:28 AM Workstation Name: [id number]
--- NOTE | 2021-09-15 04:42 | XRay Report ---
CHEST 1 VIEW INDICATION / CLINICAL INFORMATION: post pci. COMPARISON: 09/14/2021 FINDINGS: SUPPORT DEVICES: NG tube is present with tip in the midportion of the stomach. HEART / MEDIASTINUM: No significant abnormality. LUNGS / PLEURA: Mild interstitial prominence bilaterally unchanged from recent exam. There is focal c onsolidation within the left lung base, retrocardiac area. No pneumothorax. ADDITIONAL FINDINGS: No significant additional findings. IMPRESSION: 1. Stable appearance of the chest radiograph. Mild interstitial prominence bilaterally and left lower lobe focal consolidation is stable in appearance. Signer Name: Zuleyka Guido MD Signed: 09/15/2021 4:37 AM Workstation Name: [id number]
[2021-09-15 04:43] LABS: BUN/Creatinine Ratio 15; Blood Urea Nitrogen 18 mg/dL (9-20); Calcium 8.8 mg/dL (8.4-10.2); Hemolysis Index 10
[2021-09-15] MEDS ORDERED: INSULIN LISPRO 100 UNIT/ML SUB-Q SCH (07:30)
--- NOTE | 2021-09-15 08:07 | Cardiac Catherization Report ---
DATE OF SERVICE: 09/14/2021 CARDIAC CATHETERIZATION AND CORONARY ANGIOPLASTY REASON FOR PROCEDURE: The patient is a 41-year-old man who presented to the hospital with ventricular fibrillation arrest, resuscitated in the Emergency Room. Subsequent EKG demonstrated a normal sinus rhythm with an intraventricular conduction block and suggestion of acute anterolateral wall ST elevation myocardial infarction. Emergency cardiac catheterization, STEMI protocol was activated. There was a small delay in transition to the lab specialist due to the patient's ventricular fibrillation in the Emergency Room requiring resuscitation x2, as well as the finding of severe hypokalemia requiring treatment. PROCEDURES: 1. Left heart catheterization. 2. Selective left and right coronary angiography. 3. Coronary angioplasty and stenting of the left anterior descending artery. 4. Sedation time: ____. DESCRIPTION OF PROCEDURE: The patient was prepped and draped under emergency protocol. The left femoral artery was entered using Seldinger technique followed by placement of a 6-Congolese sheath. Selective left and right coronary angiography was performed using #4 left and right Kenyon catheters. The angiograms were reviewed. CORONARY ANGIOGRAPHY: Left main coronary artery was angiographically normal. The left anterior descending artery was completely occluded in its proximal segment. There was zero PRISCILLA forward flow. This was the infarct lesion. The circumflex artery and its obtuse marginal branches contained mild irregularities. The right coronary artery was dominant and angiographically normal. CORONARY ANGIOPLASTY: We proceeded with ad hoc primary angioplasty of the LAD. We selected a 3.0 XB guiding catheter and advanced to the left coronary ostium. A 0.014 inch Internal Communications Manager 50 guidewire was transitioned down the LAD. Balloon angioplasty was carried out, following which we deployed serial 3.0-3.5 mm drug-eluting stents covering the entire lesional segment. Following stenting, there was an excellent angiographic result, zero residual stenosis and denominational completed of PRISCILLA 3 flow. There were no complications. The patient was sedated, on the vent through the procedure. He remained hemodynamically stable. CONCLUSION: 1. The patient presented with an acute anterolateral wall ST elevation myocardial infarction, complicated by ventricular fibrillation arrest. 2. Emergency cardiac catheterization completed. 3. Successful primary angioplasty and stenting of 100% occlusion of the LAD in its proximal segment. PRISCILLA 3 flow restored, zero residual stenosis. RECOMMENDATIONS: The patient will be admitted to the CCU for supportive measures. Echocardiogram will be done for left ventricular function assessment and valvular function. TID: [id number] RECEIPT: [id number] EFRAÍN/ADAM/AMANDA
[2021-09-15] MEDS ORDERED: SODIUM BICARBONATE 325 MG TAB FEEDTUBE PRN (09:22)
[2021-09-15] MEDS ORDERED: SIMPLE SYRUP 15 ML FEEDTUBE PRN ×2 (09:22)
[2021-09-15] MEDS ORDERED: LIPASE 10,500/PROTEASE 25,000/AMYLASE 43,750 (UNITS) DR CAP FEEDTUBE PRN (09:22)
[2021-09-15] MEDS ORDERED: LACTATED RINGERS 1,000 ML IV ONE (09:46)
[2021-09-15] MEDS ORDERED: ALBUTER IH SCH (10:00)
[2021-09-15] MEDS ORDERED: INHA IH SCH (10:00)
[2021-09-15] MEDS ORDERED: ASPIRIN 81 MG TAB CHEW PO SCH (10:00)
[2021-09-15] MEDS ORDERED: IPRATROPIUM IH SCH (10:00)
[2021-09-15] MEDS ORDERED: LISINOPRIL 5 MG TAB PO SCH (10:00)
[2021-09-15] MEDS ORDERED: CLOPIDOGREL 75 MG TAB PO SCH (10:00)
[2021-09-15] MEDS ORDERED: PANTOPRAZOLE 40 MG INJ IV SCH (10:00)
[2021-09-15] MEDS: METOPROLOL TARTRATE 50 MG TAB FEEDTUBE SCH ×2 (10:03→23:04)
[2021-09-15] MEDS: ASPIRIN 81 MG TAB CHEW FEEDTUBE SCH (10:03)
[2021-09-15] MEDS: HEPARIN 5,000 UNIT/1 ML VIAL SUB-Q SCH ×2 (10:04→22:57)
[2021-09-15] MEDS: FAMOTIDINE 20 MG TAB FEEDTUBE SCH ×2 (10:04→22:57)
[2021-09-15] MEDS: CLOPIDOGREL 75 MG TAB FEEDTUBE SCH (10:05)
--- NOTE | 2021-09-15 10:23 | Cat Scan Report ---
CTA CHEST WITH CONTRAST INDICATION / CLINICAL INFORMATION: Cardiopulmonary arrest. TECHNIQUE: Axial CT images were obtained through the chest after injection of IV contrast. 3 plane NC P and/or 3D reconstructions were produced. All CT scans at this location are performed using CT dose reduction for ALARA by means of automated exposure control. COMPARISON: None available. FINDINGS: Chest: The pulmonary arteries are patent without filling defect or evidence for PTE. Increased opacities wit hin bilateral lungs most significant within the dependent and bilateral lower lungs. No mediastinal o r hilar adenopathy. No acute bone findings are seen. Abdomen and pelvis: There is fluid surrounding the gallbladder with contrast within gallbladder. Mild inflammation in the gallbladder fossa. There is small amount of free fluid adjacent to the right inferior hepatic lobe. Otherwise liver, spleen, adrenal glands, pancreas and upper GI tract appear normal. NG tube is noted. Bilateral kidneys appear normal. There is marked thickening of the colon wall throughout. The rectum is distended with fluid. There is radiopaque density could represent rectal tube however c linical correlation is recommended. IMPRESSION: 1. No CT evidence for pulmonary embolism. 2. Bilateral lower lobe infiltrates and opacities 3. Diffuse thickening throughout the colon could represent colitis. There is a radiopaque density in the rectum could represent rectal tube however clinical correlation is recommended. 4. Fluid surrounding the gallbladder fossa and gallbladder. If there is right upper quadrant pain ult rasound could be performed for further evaluation for cholecystitis Signer Name: Cooper Aldana MD Signed: 09/15/2021 10:19 AM Workstation Name: [id number]
--- NOTE | 2021-09-15 10:31 | Cat Scan Report ---
CTA CHEST WITH CONTRAST INDICATION / CLINICAL INFORMATION: Cardiopulmonary arrest. TECHNIQUE: Axial CT images were obtained through the chest after injection of IV contrast. [address] P and/or 3D reconstructions were produced. All CT scans at this location are performed using CT dose reduction for ALARA by means of automated exposure control. COMPARISON: None available. FINDINGS: Chest: The pulmonary arteries are patent without filling defect or evidence for PTE. Increa sed opacities within bilateral lungs most significant within the dependent and bilateral lower lungs. No mediastinal or hilar adenopathy. No acute bone findings are seen. Abdomen and pelvis: There is f luid surrounding the gallbladder with contrast within gallbladder. Mild inflammation in the gallbladd er fossa. There is small amount of free fluid adjacent to the right inferior hepatic lobe. Otherwise liver, spleen, adrenal glands, pancreas and upper GI tract appear normal. NG tube is noted. Bilateral kidneys appear normal. There is marked thickening of the colon wall throughout. The rectum is diste nded with fluid. There is radiopaque density could represent rectal tube however clinical correlation is recommended. IMPRESSION: 1. No CT evidence for pulmonary embolism. 2. Bilateral lower lobe infiltrates and opaciti es 3. Diffuse thickening throughout the colon could represent colitis. There is a radiopaque density in the rectum could represent rectal tube however clinical correlation is recommended. 4. Fluid surro unding the gallbladder fossa and gallbladder. If there is right upper quadrant pain ultrasound could be performed for further evaluation for cholecystitis Signer Name: Cooper Aldana MD Signed: 09/15/2021 10:26 AM Workstation Name: [id number]
--- NOTE | 2021-09-15 10:44 | Cat Scan Report ---
CT BRAIN: 09/15/2021 INDICATION / CLINICAL INFORMATION: AMS. COMPARISON: None FINDINGS: BRAIN/INTRACRANIAL STRUCTURES: Unenhanced CT images of the brain demonstrate no evidence of acute int racranial abnormality. Ventricles and sulci are within normal limits of size and shape for a patient of this age. There is no evidence of ischemic injury, hemorrhage, or mass. There are no abnormal extra-axial fluid collections. EXTRACRANIAL STRUCTURES: Unremarkable. IMPRESSION: No acute abnormality. All CT scans at this location are performed using dose reduction to ALARA by means of automated expos ure control. Signer Name: Johny Moore MD Signed: 09/15/2021 10:40 AM Workstation Name: [id number]
--- NOTE | 2021-09-15 10:55 | Electrocardiograph Report ---
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
--- NOTE | 2021-09-15 11:02 | Electrocardiograph Report ---
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 Electronically Signed On 09-15-2021 11:02:16 EST by Viktor Dozier
--- NOTE | 2021-09-15 11:04 | Progress Note ---
Assessment and Plan - Patient Problems (1) Cardiopulmonary arrest Current Visit: Yes Status: Acute (2) STEMI (ST elevation myocardial infarction) Current Visit: Yes Status: Acute Qualifiers: Involved coronary artery: right coronary artery Qualified Code(s): I21.11 - ST elevation (STEMI) myocardial infarction involving right coronary artery (3) Ventricular fibrillation Current Visit: Yes Status: Acute Subjective Date of service: 09/15/21 [facility] Objective Vital Signs Temp Pulse Pulse Resp BP Pulse Ox 09/15/21 10:30 99 09/15/21 10:03 85 126/96 09/15/21 08:40 99 09/15/21 08:00 99.7 F H 09/15/21 04:00 95 H 18 99 09/15/21 03:40 98.2 F 09/15/21 03:35 89 127/94 100 09/15/21 00:00 98 H 18 99 09/14/21 23:50 97.9 F 09/14/21 23:44 98 F 09/14/21 23:00 101 H 18 99 09/14/21 22:42 85 09/14/21 21:59 101 H 18 99 09/14/21 20:00 98.9 F 09/14/21 19:59 101 H 18 99 09/14/21 18:50 97 09/14/21 15:40 98 - Physical Examination General: Other (UR,,VENT) HEENT: Positive: Other Neck: Positive: neck supple Cardiac: Positive: Reg Rate and Rhythm Lungs: Positive: clear to auscultation, Decreased Breath Sounds Neuro: Positive: Other (Patient is sedated, intubated on the vent) Abdomen: Positive: Unremarkable, Soft Skin: Positive: Clear Extremities: Present: normal. Absent: edema - Labs and Meds Cardiac Enzymes 09/14/21 Range/Units 15:35 AST 121 H (5-40) units/L Coagulation 09/14/21 Range/Units 15:35 PT 16.4 H (12.2-14.9) Sec. INR 1.19 H (0.87-1.13) APTT 26.6 (24.2-36.6) Sec. Lipids 09/14/21 Range/Units 20:33 Triglycerides 110 (2-149) mg/dL Cholesterol 213 H (50-199) mg/dL HDL Cholesterol 67 H (40-59) mg/dL Cholesterol/HDL Ratio 3.17 % CBC 09/14/21 09/15/21 Range/Units 15:35 00:08 WBC 6.2 16.2 H (4.5-11.0) K/mm3 RBC 4.40 4.96 (3.65-5.03) M/mm3 Hgb 13.2 15.0 (11.8-15.2) gm/dl Hct 43.4 47.3 H (35.5-45.6) % Plt Count 149 224 (140-440) K/mm3 Lymph # (Auto) 2.9 (1.2-5.4) K/mm3 [place] # (Auto) 0.4 (0.0-0.8) K/mm3 Eos # (Auto) 0.1 (0.0-0.4) K/mm3 Baso # (Auto) 0.0 (0.0-0.1) K/mm3 Comprehensive Metabolic Panel 09/14/21 09/14/21 09/14/21 Range/Units 15:35 15:35 22:29 Sodium 138 141 (137-145) mmol/L Potassium 2.7 L* 4.7 D (3.6-5.0) mmol/L Chloride 95.1 L 104.4 (98-107) mmol/L Carbon Dioxide 16 L 18 L (22-30) mmol/L BUN 17 19 (9-20) mg/dL Creatinine 1.5 H 1.4 H (0.8-1.3) mg/dL Glucose 432 H 255 H (75-100) mg/dL Calcium 10.0 9.1 (8.4-10.2) mg/dL Direct Bilirubin < 0.2 (0-0.2) mg/dL Indirect Bilirubin 0.1 mg/dL AST 121 H (5-40) units/L ALT 142 H (7-56) units/L Alkaline Phosphatase 64 (35-129) units/L Total Protein 5.8 L (6.3-8.2) g/dL Albumin 3.2 L (3.9-5) g/dL 09/15/21 Range/Units 03:36 Sodium 141 (137-145) mmol/L Potassium 5.1 H (3.6-5.0) mmol/L Chloride 105.8 (98-107) mmol/L Carbon Dioxide 21 L (22-30) mmol/L BUN 18 (9-20) mg/dL Creatinine 1.2 (0.8-1.3) mg/dL Glucose 182 H (75-100) mg/dL Calcium 8.8 (8.4-10.2) mg/dL Direct Bilirubin (0-0.2) mg/dL Indirect Bilirubin mg/dL AST (5-40) units/L ALT (7-56) units/L Alkaline Phosphatase (35-129) units/L Total Protein (6.3-8.2) g/dL Albumin (3.9-5) g/dL - Imaging and Cardiology EKG: report reviewed (ST elevayion )
[2021-09-15] MEDS: IPRATROPIUM/ALBUTEROL SULFATE 3 ML AMPUL.NEB IH SCH ×3 (14:04→20:02)
[2021-09-15] MEDS ORDERED: DEXTROSE 50% IN WATER (25GM) 50 ML SYRINGE IV PRN (16:49)
[2021-09-15] MEDS ORDERED: AZITHROMYCIN 250 MG/6.25 ML ORAL LIQD PO SCH (17:00)
[2021-09-15] MEDS ORDERED: SODIUM POLYSTYRENE 15 GM/60 ML ORAL LIQD PR ONE (17:02)
[2021-09-15] MEDS ORDERED: DEXAMETHASONE 4 MG TAB PO ONE (17:04)
--- NOTE | 2021-09-15 17:07 | Progress Note ---
Assessment and Plan Assessment and plan: This is a 41-year-old male admitted with post cardiac arrest, with acute hypoxic respiratory failure, STEMI, ALLISON Neuro: Sedated -Avoid delirium -Reorientation as needed -Sedated with propofol -RASS goal -1 to -2 -As needed analgesia -Maintain sleep-wake cycle -CT head shows no acute abnormality Cardiac: STEMI, s/p VFib arrest -Cardiology consulted, apprecaite recommendations -Presented with vfib arrest, shocked mulitple times before ROSC acheived -s/p PCI which showed 100% occlusion of the LAD -s/p aggrestat -Lipid panel noted in chart -Blood pressure monitoring per protocol -Echocardiogram pending -Amio gtt -Aspirin, plavix, lipitor Respiratory: Acute respiratory failure -CCM consulted, appreciate recommendations -Inutbated on 09/14 with 7.5 oett 21 at the teeth in the ED -A.m. vent settings: AC R 16, TV 450, Peep 6, 35% FiO2 -See RT notes for titration -A.m. ABG and CXR noted -VAP bundle -SPO2 monitoring GI: Transaminitis -24 hours -1643 mL -PPI -NTR consult for tube feedings -started on bolus feeding d/t no pump avalibiity -BR: senna -CTA chest shows diffuse thickening throughout the colon and fluid surrounding the gallbladder fossa and gallbladder -Trend LFTs -May need limited abdominal ultrasound : Acute kidney injury secondary likely to vasomotor nephropathy, hyperkalemia, metabolic acidosis -Nephrology consulted, appreciate recommendations -Strict intake and output -Renally dose medications -Avoid nephrotoxic medications -Daily weights -FeNa pending -Renal ultrasound pending Endo: NAD -Avoid hypoglycemia -SSI -Accu-Cheks q6 while in TF Heme: Leukocytosis -maybe reactive -Trend CBC -SCDs to bilateral LE while in bed -Transfuse hemoglobin less than 7 -Monitor for signs of bleeding -Heparin ID: COVID-19 infection -Infectious disease consulted, appreciate recommendations -CTA chest shows bilateral lower lobe infiltrates with opacities -COVID 19 PCR Positve -Droplet/contact precautions -Dexamethasone -Vitamin C, vitamin D, zinc -Trend COVID-19 inflammatory markers -CRP pending -ABX therapy with azithromycin and ceftriaxone -Monitor WBC and temperature curve The high probability of a clinically significant, sudden or life threatening deterioration of the [multi] system(s) required my full and direct attention, intervention and personal management. The aggregate critical care time was [60] minutes. This time is in addition to time spent performing reported procedures but includes the following: [x] Data Review and interpretation [x] Patient assessment and monitoring of vital signs [x] Documentation [x] Medication orders and management Disposition Plan: icu Total Time Spent with Patient (Minutes): 60 History Interval history: This is a 41-year-old male without significant medical history who presented to the emergency department on 09/14/2021 in cardiac arrest after being noted that he started "jerking and his eyes rolled back" in the backseat of his car. She pulled into the ambulance bay and an EMS personnel in the [place] started CPR and fo und the patient with agonal breathing. ACLS was started in the emergency department and he was noted to be in V. fib, receivedseveral shocks and was given amiodarone and lidocaine. He was also intubated during this time and received a femoral line. Work-up in the emergency department included ECG which showed hyperacute T waves and cardiology was consulted. Patient was taken emergently to the cardiac [employer] where it was noted that he had a complete occlusion of the LAD and had a successful angioplasty. He also had severe hypokalemia which was treated, elevated D-dimer, metabolic acidosis and acute kidney injury. Patient was admitted to the hospitalist service s/p cardiac arrest, STEMI, acute kidney injury, acute hypoxic respiratory failure with consults to cardiology and [facility]. 09/15: Patient had a CTA and CT head today, remains on the ventilator. Continues amiodarone and heparin drip. Received 1 L LR bolus for ALLISON. Started on bolus feeding. COVID-19 PCR positive. Hospitalist Physical - Constitutional Vitals: Temp Pulse Resp BP Pulse Ox 99.5 F 87 16 125/88 100 09/15/21 12:00 09/15/21 16:15 09/15/21 16:15 09/15/21 16:15 09/15/21 16:00 General appearance: Present: no acute distress, well-nourished, other (sedated) - EENT Eyes: Present: PERRL, EOM intact ENT: hearing intact, clear oral mucosa - Neck Neck: Present: normal ROM - Respiratory Respiratory effort: normal Respiratory: bilateral: diminished - Cardiovascular Rhythm: regular Heart Sounds: Present: S1 & S2. Absent: systolic murmur, diastolic murmur - Extremities Extremities: no ischemia, pulses intact, pulses symmetrical, No edema, normal temperature, normal color Peripheral Pulses: within normal limits - Abdominal General gastrointestinal: soft, non-tender, non-distended, normal bowel sounds - Integumentary Integumentary: Present: warm, dry - Neurologic Neurologic: no focal deficits, moves all extremities - Allied Health Allied health notes reviewed: nursing, RT HEART Score - HEART Score Age: < 45 Risk factors: 1-2 risk factors Troponin: Troponin T 12.440 ng/mL (0.00-0.029) H* D 09/15/21 03:36 Troponin: 1-3x normal limit - Critical Actions Critical Actions: >7 pts:50-65% risk of adverse cardiac event. Early invasive measures Results - Labs CBC & Chem 7: 09/15/21 00:08 09/15/21 03:36 Labs: Laboratory Last Values WBC 16.2 K/mm3 (4.5-11.0) H 09/15/21 00:08 RBC 4.96 M/mm3 (3.65-5.03) 09/15/21 00:08 Hgb 15.0 gm/dl (11.8-15.2) 09/15/21 00:08 Hct 47.3 % (35.5-45.6) H 09/15/21 00:08 MCV 95 fl (84-94) H 09/15/21 00:08 MCH 30 pg (28-32) 09/15/21 00:08 MCHC 32 % (32-34) 09/15/21 00:08 RDW 12.5 % (13.2-15.2) L 09/15/21 00:08 Plt Count 224 K/mm3 (140-440) 09/15/21 00:08 Lymph % (Auto) 46.5 % (13.4-35.0) H 09/14/21 15:35 Andrew % (Auto) 6.6 % (0.0-7.3) 09/14/21 15:35 Eos % (Auto) 1.1 % (0.0-4.3) 09/14/21 15:35 Baso % (Auto) 0.6 % (0.0-1.8) 09/14/21 15:35 Lymph # (Auto) 2.9 K/mm3 (1.2-5.4) 09/14/21 15:35 Andrew # (Auto) 0.4 K/mm3 (0.0-0.8) 09/14/21 15:35 Eos # (Auto) 0.1 K/mm3 (0.0-0.4) 09/14/21 15:35 Baso # (Auto) 0.0 K/mm3 (0.0-0.1) 09/14/21 15:35 Add Manual Diff Complete 09/15/21 00:08 Total Counted 100 09/15/21 00:08 Seg Neutrophils % 45.2 % (40.0-70.0) 09/14/21 15:35 Seg Neuts % (Manual) 89.0 % (40.0-70.0) H 09/15/21 00:08 Band Neutrophils % 3.0 % 09/15/21 00:08 Lymphocytes % (Manual) 3.0 % (13.4-35.0) L 09/15/21 00:08 Monocytes % (Manual) 5.0 % (0.0-7.3) 09/15/21 00:08 Nucleated RBC % Not Reportable 09/15/21 00:08 Seg Neutrophils # 2.8 K/mm3 (1.8-7.7) 09/14/21 15:35 Seg Neutrophils # Man 14.4 K/mm3 (1.8-7.7) H 09/15/21 00:08 Band Neutrophils # 0.5 K/mm3 09/15/21 00:08 Lymphocytes # (Manual) 0.5 K/mm3 (1.2-5.4) L 09/15/21 00:08 Abs React Lymphs (Man) 0.0 K/mm3 09/15/21 00:08 Monocytes # (Manual) 0.8 K/mm3 (0.0-0.8) 09/15/21 00:08 Eosinophils # (Manual) 0.0 K/mm3 (0.0-0.4) 09/15/21 00:08 Basophils # (Manual) 0.0 K/mm3 (0.0-0.1) 09/15/21 00:08 Metamyelocytes # 0.0 K/mm3 09/15/21 00:08 Myelocytes # 0.0 K/mm3 09/15/21 00:08 Promyelocytes # 0.0 K/mm3 09/15/21 00:08 Blast Cells # 0.0 K/mm3 09/15/21 00:08 WBC Morphology Not Reportable 09/15/21 00:08 Hypersegmented Neuts Not Reportable 09/15/21 00:08 Hyposegmented Neuts Not Reportable 09/15/21 00:08 Hypogranular Neuts Not Reportable 09/15/21 00:08 Smudge Cells Not Reportable 09/15/21 00:08 Toxic Granulation Not Reportable 09/15/21 00:08 Toxic Vacuolation Not Reportable 09/15/21 00:08 Dohle Bodies Not Reportable 09/15/21 00:08 Pelger-Huet Anomaly Not Reportable 09/15/21 00:08 Sarwat Rods Not Reportable 09/15/21 00:08 Platelet Estimate Consistent w auto 09/15/21 00:08 Clumped Platelets Not Reportable 09/15/21 00:08 Plt Clumps, EDTA Not Reportable 09/15/21 00:08 Large Platelets Not Reportable 09/15/21 00:08 Giant Platelets Not Reportable 09/15/21 00:08 Platelet Satelliting Not Reportable 09/15/21 00:08 Plt Morphology Comment Not Reportable 09/15/21 00:08 RBC Morphology Normal 09/15/21 00:08 Dimorphic RBCs Not Reportable 09/15/21 00:08 Polychromasia Not Reportable 09/15/21 00:08 Hypochromasia Not Reportable 09/15/21 00:08 Poikilocytosis Not Reportable 09/15/21 00:08 Anisocytosis Not Reportable 09/15/21 00:08 Microcytosis Not Reportable 09/15/21 00:08 Macrocytosis Not Reportable 09/15/21 00:08 Spherocytes Not Reportable 09/15/21 00:08 Pappenheimer Bodies Not Reportable 09/15/21 00:08 Sickle Cells Not Reportable 09/15/21 00:08 Target Cells Not Reportable 09/15/21 00:08 Tear Drop Cells Not Reportable 09/15/21 00:08 Ovalocytes Not Reportable 09/15/21 00:08 Helmet Cells Not Reportable 09/15/21 00:08 [place] Bodies Not Reportable 09/15/21 00:08 Jackson Rings Not Reportable 09/15/21 00:08 Antelope Cells Not Reportable 09/15/21 00:08 Bite Cells Not Reportable 09/15/21 00:08 Crenated Cell Not Reportable 09/15/21 00:08 Elliptocytes Not Reportable 09/15/21 00:08 Acanthocytes (Spur) Not Reportable 09/15/21 00:08 Rouleaux Not Reportable 09/15/21 00:08 Hemoglobin C Crystals Not Reportable 09/15/21 00:08 Schistocytes Not Reportable 09/15/21 00:08 Malaria parasites Not Reportable 09/15/21 00:08 Alejandro Bodies Not Reportable 09/15/21 00:08 Hem Pathologist Commnt No 09/15/21 00:08 PT 16.4 Sec. (12.2-14.9) H 09/14/21 15:35 INR 1.19 (0.87-1.13) H 09/14/21 15:35 APTT 26.6 Sec. (24.2-36.6) 09/14/21 15:35 D-Dimer 1400.51 ng/mlDDU (0-234) H 09/14/21 15:35 ABG pH 7.283 pH Units (7.350-7.450) L 09/14/21 16:30 ABG pCO2 42.6 mm Hg 09/14/21 16:30 ABG pO2 376.5 mm Hg (80.0-90.0) H 09/14/21 16:30 ABG HCO3 19.7 mmol/L (20.0-26.0) L 09/14/21 16:30 ABG O2 Saturation 99.5 % (95.0-99.0) H 09/14/21 16:30 ABG O2 Content 21.0 (0.0-44) 09/14/21 16:30 ABG Base Excess -6.7 mmol/L (-2.0-3.0) L 09/14/21 16:30 ABG Hemoglobin 14.6 gm/dl (14.0-18.0) 09/14/21 16:30 ABG Carboxyhemoglobin 1.1 % (0.0-5.0) 09/14/21 16:30 ABG Methemoglobin 0.6 % (0.0-1.5) 09/14/21 16:30 Oxyhemoglobin 97.8 % (95.0-99.0) 09/14/21 16:30 FiO2 100 % 09/14/21 16:30 Sodium 141 mmol/L (137-145) 09/15/21 03:36 Potassium 5.1 mmol/L (3.6-5.0) H 09/15/21 03:36 Chloride 105.8 mmol/L (98-107) 09/15/21 03:36 Carbon Dioxide 21 mmol/L (22-30) L 09/15/21 03:36 Anion Gap 19 mmol/L 09/15/21 03:36 BUN 18 mg/dL (9-20) 09/15/21 03:36 Creatinine 1.2 mg/dL (0.8-1.3) 09/15/21 03:36 Estimated GFR > 60 ml/min 09/15/21 03:36 BUN/Creatinine Ratio 15 % 09/15/21 03:36 Glucose 182 mg/dL (75-100) H 09/15/21 03:36 POC Glucose 131 mg/dL (70-105) H 09/15/21 16:34 Calcium 8.8 mg/dL (8.4-10.2) 09/15/21 03:36 Magnesium 2.30 mg/dL (1.7-2.3) 09/14/21 15:35 Total Bilirubin 0.30 mg/dL (0.1-1.2) 09/14/21 15:35 Direct Bilirubin < 0.2 mg/dL (0-0.2) 09/14/21 15:35 Indirect Bilirubin 0.1 mg/dL 09/14/21 15:35 AST 121 units/L (5-40) H 09/14/21 15:35 ALT 142 units/L (7-56) H 09/14/21 15:35 Alkaline Phosphatase 64 units/L (35-129) 09/14/21 15:35 Troponin T 12.440 ng/mL (0.00-0.029) H* D 09/15/21 03:36 Total Protein 5.8 g/dL (6.3-8.2) L 09/14/21 15:35 Albumin 3.2 g/dL (3.9-5) L 09/14/21 15:35 Albumin/Globulin Ratio 1.2 % 09/14/21 15:35 Triglycerides 110 mg/dL (2-149) 09/14/21 20:33 Cholesterol 213 mg/dL (50-199) H 09/14/21 20:33 LDL Cholesterol Direct 134 mg/dL (50-130) H 09/14/21 20:33 HDL Cholesterol 67 mg/dL (40-59) H 09/14/21 20:33 Cholesterol/HDL Ratio 3.17 % 09/14/21 20:33 Urine Color Yellow (Yellow) 09/14/21 Unknown Urine Turbidity Slightly-cloudy (Clear) 09/14/21 Unknown Urine pH 6.0 (5.0-7.0) 09/14/21 Unknown Ur Specific [place] 1.028 (1.003-1.030) 09/14/21 Unknown Urine Protein 100 mg/dl mg/dL (Negative) 09/14/21 Unknown Urine Glucose (UA) Neg mg/dL (Negative) 09/14/21 Unknown Urine Ketones Tr mg/dL (Negative) 09/14/21 Unknown Urine Blood Neg (Negative) 09/14/21 Unknown Urine Nitrite Neg (Negative) 09/14/21 Unknown Ur Reducing Substances Not Reportable 09/14/21 Unknown Urine Bilirubin Neg (Negative) 09/14/21 Unknown Urine Ictotest Not Reportable 09/14/21 Unknown Urine Urobilinogen < 2.0 mg/dL (<2.0) 09/14/21 Unknown Ur Leukocyte Esterase Sm (Negative) 09/14/21 Unknown Urine WBC (Auto) 50.0 /HPF (0.0-6.0) H 09/14/21 Unknown Urine RBC (Auto) 12.0 /HPF (0.0-6.0) 09/14/21 Unknown U Epithel Cells (Auto) < 1.0 /HPF (0-13.0) 09/14/21 Unknown Urine Bacteria (Auto) 2+ /HPF (Negative) 09/14/21 Unknown Urine Mucus 3+ /HPF 09/14/21 Unknown Urine Yeast (Budding) Few /HPF 09/14/21 Unknown Salicylates < 0.3 mg/dL (2.8-20.0) L 09/14/21 15:35 Urine Opiates Screen Negative 09/14/21 Unknown Urine Methadone Screen Negative 09/14/21 Unknown Acetaminophen 5.0 ug/mL (10.0-30.0) L 09/14/21 15:35 Ur Barbiturates Screen Negative 09/14/21 Unknown Ur Phencyclidine Scrn Negative 09/14/21 Unknown Ur Amphetamines Screen Negative 09/14/21 Unknown U Benzodiazepines Scrn Negative 09/14/21 Unknown Urine Cocaine Screen Negative 09/14/21 Unknown U Marijuana (THC) Screen Positive 09/14/21 Unknown Drugs of Abuse Note Disclamer 09/14/21 Unknown Coronavirus (PCR) Positive (Negative) A 09/15/21 Unknown Microbiology: Microbiology 09/14/21 Unknown Urine,Clean Catch Urine Culture - Preliminary NO GROWTH AFTER 24 HOURS Alvarado/IV: Voiding Method Indwelling Catheter Active Medications - Current Medications Current Medications: Generic Name Dose Route Start Last Admin Trade Name Freq PRN Reason Stop Dose Admin Acetaminophen 650 mg 09/14/21 18:53 Acetaminophen 325 Mg Tab PO Q4H PRN Pain MILD(1-3)/Fever >100.5/BHATIA Hydrocodone Bitart/Acetaminophen 1 each 09/14/21 18:05 Hydrocodone/Acetaminophen 5-325 Mg Tab PO Q6H PRN Pain, Moderate (4-6) Albuterol/Ipratropium 1 ampul 09/15/21 14:00 Ipratropium/Albuterol Sulfate 3 Ml Ampul.Neb IH Q6HRT CASSANDRA Lipase/Protease/Amylase 1 each 09/15/21 09:22 Lipase 10,500/Protease 25,000/Amylase 43,750 (Units) Dr Ortega FEEDTUBE PRN PRN For Clogged Feeding Tube Ascorbic Acid 500 mg 09/16/21 10:00 Ascorbic Acid 500 Mg Tab PO QDAY [facility] Aspirin 162 mg 09/15/21 10:00 09/15/21 10:03 Aspirin 81 Mg Tab Chew FEEDTUBE 162 mg QDAY [facility] Administration Atorvastatin Calcium 40 mg 09/15/21 08:13 Atorvastatin 40 Mg Tab FEEDTUBE QHS CASSANDRA Azithromycin 500 mg 09/15/21 17:00 Azithromycin 250 Mg/6.25 Ml Oral Liqd PO Q24HR [facility] Protocol Cholecalciferol 5,000 unit 09/16/21 10:00 Cholecalciferol (Vit D3) 5,000 Unit Tab PO DAILY [facility] Clopidogrel Bisulfate 75 mg 09/15/21 10:00 09/15/21 10:05 Clopidogrel 75 Mg Tab FEEDTUBE 75 mg QDAY CASSANDRA Administration Dextrose 50 ml 09/15/21 16:49 Dextrose 50% In Water (25gm) 50 Ml Syringe IV Q30MIN PRN Hypoglycemia Protocol Famotidine 20 mg 09/15/21 10:00 09/15/21 10:04 Famotidine 20 Mg Tab FEEDTUBE 20 mg BID [facility] Administration Heparin Sodium (Porcine) 5,000 unit 09/14/21 22:00 09/15/21 10:04 Heparin 5,000 Unit/1 Ml Vial SUB-Q 5,000 unit Q12HR [facility] Administration Amiodarone HCl 360 mg/ 200 mls @ 33.333 mls/hr 09/14/21 16:00 09/15/21 02:54 Dextrose IV 0.5 mg/min DIRECT CASSANDRA 16.667 mls/hr Administration Protocol 1 MG/MIN Propofol 1,000 mg in 100 mls @ 2.22 mls/hr 09/14/21 16:00 09/15/21 10:04 Diprivan 10 Mg/Ml IV 30 mcg/kg/min TITR CASSANDRA 13.32 mls/hr Administration Protocol 5 MCG/KG/MIN Ceftriaxone Sodium 2 gm in 100 mls @ 200 mls/hr 09/15/21 17:00 Rocephin/Ns 2 Gm/100 Ml IV Q24H [facility] Protocol Insulin Human Lispro 0 unit 09/15/21 18:00 Insulin Lispro 100 Unit/Ml SUB-Q Q6HR [facility] Protocol Lisinopril 5 mg 09/15/21 10:00 Lisinopril 5 Mg Tab PO QDAY [facility] Metoclopramide HCl 10 mg 09/14/21 18:53 Metoclopramide 10 Mg/2 Ml Inj IV Q6H PRN Nausea And Vomiting Metoprolol Tartrate 50 mg 09/15/21 08:13 09/15/21 10:03 Metoprolol Tartrate 50 Mg Tab FEEDTUBE 50 mg BID [facility] Administration Nitroglycerin 0.4 mg 09/15/21 06:00 Nitroglycerin 0.4 Mg Patch 24hr TD DAILY@0600 [facility] Ondansetron HCl 4 mg 09/14/21 18:53 Ondansetron 4 Mg/2 Ml Inj IV Q8H PRN Nausea And Vomiting Oxycodone/Acetaminophen 1 tab 09/14/21 18:53 Oxycodone /Acetaminophen 5-325mg Tab PO Q6H PRN Pain, Moderate (4-6) Senna 8.8 mg 09/15/21 22:00 Sennosides Oral Liqd 8.8 Mg/5 Ml Oral Liqd PO QHS CASSANDRA Simple Syrup 15 ml 09/15/21 09:22 Simple Syrup 15 Ml FEEDTUBE PRN PRN Hypoglycemia Simple Syrup 30 ml 09/15/21 09:22 Simple Syrup 15 Ml FEEDTUBE PRN PRN Hypoglycemia Sodium Bicarbonate 325 mg 09/15/21 09:22 Sodium Bicarbonate 325 Mg Tab FEEDTUBE PRN PRN For Clogged Feeding Tube Sodium Chloride 10 ml 09/14/21 22:00 09/14/21 22:25 Sodium Chloride 0.9% 10 Ml Flush Syringe IV 10 ml BID CASSANDRA Administration Sodium Chloride 10 ml 09/14/21 18:53 Sodium Chloride 0.9% 10 Ml Flush Syringe IV PRN PRN LINE FLUSH Sodium Polystyrene Sulfonate 30 gm 09/15/21 17:02 Sodium Polystyrene 15 Gm/60 Ml Oral Liqd AK 09/15/21 17:03 ONCE ONE Zinc Sulfate 220 mg 09/15/21 22:00 Zinc Sulfate 220 Mg Cap PO BID [facility] Nutrition/Malnutrition Assess - Dietary Evaluation Nutrition/Malnutrition Findings: Nutrition Notes Start: 09/15/21 09:13 Freq: Status: Active Protocol: Document 09/15/21 09:13 (Rec: 09/15/21 09:22 [id number]) Nutrition Notes Need for Assessment generated from: MD Order Initial or Follow up Assessment Other Pertinent Diagnosis STEMI, cardiac arrest, hypokalemia Current Diet No diet Labs/Tests K 5.1 BG 182 09/14: Cholesterol 213 LDL 134 HLD 67 Pertinent Medications Propofol at 13.32 ml/hr (352 kcal) 09/14: 40 mEq KCl Height 5 ft 7 in Weight 74 kg [place] Body Weight (kg) 67.27 BMI 25.5 Weight Status Appropriate Subjective/Other Information MD consult for TF. Pt on vent. NGT to LIS at this time. Burn Absent Trauma Absent GI Symptoms Vomiting,Diarrhea Current % PO Negligible Minimum of two criteria No #1 Nutrition Diagnosis Inadequate oral intake Etiology cardiac arrest As Evidenced by Signs and Symptoms pt on vent and unable to consume PO, NGT to LIS Is patient on ventilator? Yes Is Patient Ambulatory and/or Out of Bed No [facility] 1921.500 Calculation Used for Recommendations [facility] Additional Notes Protein: (1.2-2/kg) 89-148g Fluid: 1 ml/kcal or per MD Nutrition Intervention Change Diet Order: Start TF as medically able Nutrition Support: Vital AF 1.2 at 65 ml/hr Flush 100 ml q4h or per MD Kcal 1,872 Protein (gm) 117 Fluid (mL) 1,265 Goal #1 Start TF Anticipated Discharge Needs: Unable to determine at this time Follow-Up By: 09/17/21 Additional Comments F/U: TF start
[2021-09-15 18:29] LABS: C-Reactive Protein 10.4 mg/dL (0.00-1.30)
[2021-09-15] MEDS: LISINOPRIL 5 MG TAB PO SCH (18:32)
[2021-09-15] MEDS: cefTRIAXone/NS 2 GM/100 ML 2 GM/100 ML BAG IV SCH (18:51)
--- NOTE | 2021-09-15 21:03 | Consultation ---
History of Present Illness Consult date: 09/15/21 Requesting physician: SAMUEL SHEETS Reason for consult: dyspnea History of present illness: 41 yo admitted with chest pain, STEMI, Vfib arrest requiring ACLS protocol and intubation. He is sedated on Propofol but is appropriate off of the same. Denies chest pain currently. Active Medications Acetaminophen (Acetaminophen 325 Mg Tab) 650 mg PO Q4H PRN PRN Reason: Pain MILD(1-3)/Fever >100.5/BHATIA Hydrocodone Bitart/Acetaminophen (Hydrocodone/Acetaminophen 5-325 Mg Tab) 1 each PO Q6H PRN PRN Reason: Pain, Moderate (4-6) Albuterol/Ipratropium (Ipratropium/Albuterol Sulfate 3 Ml Ampul.Neb) 1 ampul IH Q6HRT [facility] Last Admin: 09/15/21 20:02 Dose: Not Given Documented by: Lipase/Protease/Amylase (Lipase 10,500/Protease 25,000/Amylase 43,750 (Units) Dr Ortega) 1 each FEEDTUBE PRN PRN PRN Reason: For Clogged Feeding Tube Ascorbic Acid (Ascorbic Acid 500 Mg Tab) 500 mg PO QDAY [facility] Aspirin (Aspirin 81 Mg Tab Chew) 162 mg FEEDTUBE QDAY [facility] Last Admin: 09/15/21 10:03 Dose: 162 mg Documented by: Atorvastatin Calcium (Atorvastatin 40 Mg Tab) 40 mg FEEDTUBE QHS [facility] Azithromycin (Azithromycin 250 Mg/6.25 Ml Oral Liqd) 500 mg PO Q24HR [facility]; Protocol Cholecalciferol (Cholecalciferol (Vit D3) 5,000 Unit Tab) 5,000 unit PO DAILY [facility] Clopidogrel Bisulfate (Clopidogrel 75 Mg Tab) 75 mg FEEDTUBE QDAY [facility] Last Admin: 09/15/21 10:05 Dose: 75 mg Documented by: Dextrose (Dextrose 50% In Water (25gm) 50 Ml Syringe) 50 ml IV Q30MIN PRN; Protocol PRN Reason: Hypoglycemia Famotidine (Famotidine 20 Mg Tab) 20 mg FEEDTUBE BID [facility] Last Admin: 09/15/21 10:04 Dose: 20 mg Documented by: Heparin Sodium (Porcine) (Heparin 5,000 Unit/1 Ml Vial) 5,000 unit SUB-Q Q12HR [facility] Last Admin: 09/15/21 10:04 Dose: 5,000 unit Documented by: Amiodarone HCl 360 mg/ (Dextrose) 200 mls @ 33.333 mls/hr IV DIRECT [facility]; Protocol Last Admin: 09/15/21 02:54 Dose: 0.5 mg/min, 16.667 mls/hr Documented by: Propofol (Diprivan 10 Mg/Ml) 1,000 mg in 100 mls @ 2.22 mls/hr IV TITR [facility]; Protocol Last Admin: 09/15/21 18:51 Dose: 30 mcg/kg/min, 13.32 mls/hr Documented by: Ceftriaxone Sodium (Rocephin/Ns 2 Gm/100 Ml) 2 gm in 100 mls @ 200 mls/hr IV Q24H [facility]; Protocol Last Admin: 09/15/21 18:51 Dose: 200 mls/hr Documented by: Insulin Human Lispro (Insulin Lispro 100 Unit/Ml) 0 unit SUB-Q Q6HR [facility]; Protocol Lisinopril (Lisinopril 5 Mg Tab) 5 mg PO QDAY [facility] Last Admin: 09/15/21 18:32 Dose: Not Given Documented by: Metoclopramide HCl (Metoclopramide 10 Mg/2 Ml Inj) 10 mg IV Q6H PRN PRN Reason: Nausea And Vomiting Metoprolol Tartrate (Metoprolol Tartrate 50 Mg Tab) 50 mg FEEDTUBE BID [facility] Last Admin: 09/15/21 10:03 Dose: 50 mg Documented by: Nitroglycerin (Nitroglycerin 0.4 Mg Patch 24hr) 0.4 mg TD DAILY@0600 [facility] Ondansetron HCl (Ondansetron 4 Mg/2 Ml Inj) 4 mg IV Q8H PRN PRN Reason: Nausea And Vomiting Oxycodone/Acetaminophen (Oxycodone /Acetaminophen 5-325mg Tab) 1 tab PO Q6H PRN PRN Reason: Pain, Moderate (4-6) Senna (Sennosides Oral Liqd 8.8 Mg/5 Ml Oral Liqd) 8.8 mg PO QHS [facility] Simple Syrup (Simple Syrup 15 Ml) 15 ml FEEDTUBE PRN PRN PRN Reason: Hypoglycemia Simple Syrup (Simple Syrup 15 Ml) 30 ml FEEDTUBE PRN PRN PRN Reason: Hypoglycemia Sodium Bicarbonate (Sodium Bicarbonate 325 Mg Tab) 325 mg FEEDTUBE PRN PRN PRN Reason: For Clogged Feeding Tube Sodium Chloride (Sodium Chloride 0.9% 10 Ml Flush Syringe) 10 ml IV BID [facility] Last Admin: 09/14/21 22:25 Dose: 10 ml Documented by: Sodium Chloride (Sodium Chloride 0.9% 10 Ml Flush Syringe) 10 ml IV PRN PRN PRN Reason: LINE FLUSH Zinc Sulfate (Zinc Sulfate 220 Mg Cap) 220 mg PO BID [facility] Past History Past Medical History: COPD, other (Family history of coronary disease) Past Surgical History: No surgical history Social history: no significant social history, lives with family, full code Family history: other (no pulm issues reported) Medications and Allergies Allergies Allergy/AdvReac Type Severity Reaction Status Date / Time No Known Allergies Allergy Unverified 09/14/21 16:23 Home Medications Medication Instructions Recorded Confirmed Last Taken Type Ipratropium/Albuter (Nf) 2 puff IH QID 09/15/21 09/15/21 Unknown History [Combivent (Nf)] Active Meds: Active Medications Acetaminophen (Acetaminophen 325 Mg Tab) 650 mg PO Q4H PRN PRN Reason: Pain MILD(1-3)/Fever >100.5/BHATIA Hydrocodone Bitart/Acetaminophen (Hydrocodone/Acetaminophen 5-325 Mg Tab) 1 each PO Q6H PRN PRN Reason: Pain, Moderate (4-6) Albuterol/Ipratropium (Ipratropium/Albuterol Sulfate 3 Ml Ampul.Neb) 1 ampul IH Q6HRT [facility] Last Admin: 09/15/21 20:02 Dose: Not Given Documented by: Lipase/Protease/Amylase (Lipase 10,500/Protease 25,000/Amylase 43,750 (Units) Dr Ortega) 1 each FEEDTUBE PRN PRN PRN Reason: For Clogged Feeding Tube Ascorbic Acid (Ascorbic Acid 500 Mg Tab) 500 mg PO QDAY [facility] Aspirin (Aspirin 81 Mg Tab Chew) 162 mg FEEDTUBE QDAY [facility] Last Admin: 09/15/21 10:03 Dose: 162 mg Documented by: Atorvastatin Calcium (Atorvastatin 40 Mg Tab) 40 mg FEEDTUBE QHS [facility] Azithromycin (Azithromycin 250 Mg/6.25 Ml Oral Liqd) 500 mg PO Q24HR [facility]; Prot ocol Cholecalciferol (Cholecalciferol (Vit D3) 5,000 Unit Tab) 5,000 unit PO DAILY [facility] Clopidogrel Bisulfate (Clopidogrel 75 Mg Tab) 75 mg FEEDTUBE QDAY [facility] Last Admin: 09/15/21 10:05 Dose: 75 mg Documented by: Dextrose (Dextrose 50% In Water (25gm) 50 Ml Syringe) 50 ml IV Q30MIN PRN; Protocol PRN Reason: Hypoglycemia Famotidine (Famotidine 20 Mg Tab) 20 mg FEEDTUBE BID [facility] Last Admin: 09/15/21 10:04 Dose: 20 mg Documented by: Heparin Sodium (Porcine) (Heparin 5,000 Unit/1 Ml Vial) 5,000 unit SUB-Q Q12HR [facility] Last Admin: 09/15/21 10:04 Dose: 5,000 unit Documented by: Amiodarone HCl 360 mg/ (Dextrose) 200 mls @ 33.333 mls/hr IV DIRECT [facility]; Protocol Last Admin: 09/15/21 02:54 Dose: 0.5 mg/min, 16.667 mls/hr Documented by: Propofol (Diprivan 10 Mg/Ml) 1,000 mg in 100 mls @ 2.22 mls/hr IV TITR [facility]; Protocol Last Admin: 09/15/21 18:51 Dose: 30 mcg/kg/min, 13.32 mls/hr Documented by: Ceftriaxone Sodium (Rocephin/Ns 2 Gm/100 Ml) 2 gm in 100 mls @ 200 mls/hr IV Q 24H [facility]; Protocol Last Admin: 09/15/21 18:51 Dose: 200 mls/hr Documented by: Insulin Human Lispro (Insulin Lispro 100 Unit/Ml) 0 unit SUB-Q Q6HR [facility]; Protocol Lisinopril (Lisinopril 5 Mg Tab) 5 mg PO QDAY [facility] Last Admin: 09/15/21 18:32 Dose: Not Given Documented by: Metoclopramide HCl (Metoclopramide 10 Mg/2 Ml Inj) 10 mg IV Q6H PRN PRN Reason: Nausea And Vomiting Metoprolol Tartrate (Metoprolol Tartrate 50 Mg Tab) 50 mg FEEDTUBE BID [facility] Last Admin: 09/15/21 10:03 Dose: 50 mg Documented by: Nitroglycerin (Nitroglycerin 0.4 Mg Patch 24hr) 0.4 mg TD DAILY@0600 [facility] Ondansetron HCl (Ondansetron 4 Mg/2 Ml Inj) 4 mg IV Q8H PRN PRN Reason: Nausea And Vomiting Oxycodone/Acetaminophen (Oxycodone /Acetaminophen 5-325mg Tab) 1 tab PO Q6H PRN PRN Reason: Pain, Moderate (4-6) Senna (Sennosides Oral Liqd 8.8 Mg/5 Ml Oral Liqd) 8.8 mg PO QHS [facility] Simple Syrup (Simple Syrup 15 Ml) 15 ml FEEDTUBE PRN PRN PRN Reason: Hypoglycemia Simple Syrup (Simple Syrup 15 Ml) 30 ml FEEDTUBE PRN PRN PRN Reason: Hypoglycemia Sodium Bicarbonate (Sodium Bicarbonate 325 Mg Tab) 325 mg FEEDTUBE PRN PRN PRN Reason: For Clogged Feeding Tube Sodium Chloride (Sodium Chloride 0.9% 10 Ml Flush Syringe) 10 ml IV BID [facility] Last Admin: 09/14/21 22:25 Dose: 10 ml Documented by: Sodium Chloride (Sodium Chloride 0.9% 10 Ml Flush Syringe) 10 ml IV PRN PRN PRN Reason: LINE FLUSH Zinc Sulfate (Zinc Sulfate 220 Mg Cap) 220 mg PO BID [facility] Review of Systems ROS unobtainable: due to endotracheal tube Physical Examination Vital signs: Vital Signs Pulse Ox 98 09/14/21 15:40 General appearance: other (critically ill on ventilator) Eyes: non-icteric ENT: oropharynx moist Neck: supple Effort: normal Ascultation: Bilateral: clear Cardiovascular: regular rate and rhythm (no mrg) Gastrointestinal: normoactive bowel sounds, soft, non-tender Integumentary: normal Extremities: no cyanosis, no edema, pink and warm normal mental status, non-focal exam, pupils equal and round mood appropriate, affect normal Results - Laboratory Findings CBC and BMP: 09/15/21 00:08 09/15/21 03:36 ABG ABG pH 7.283 pH Units (7.350-7.450) L 09/14/21 16:30 ABG pCO2 42.6 mm Hg 09/14/21 16:30 ABG pO2 376.5 mm Hg (80.0-90.0) H 09/14/21 16:30 ABG O2 Saturation 99.5 % (95.0-99.0) H 09/14/21 16:30 PT/INR, D-dimer PT 16.4 Sec. (12.2-14.9) H 09/14/21 15:35 INR 1.19 (0.87-1.13) H 09/14/21 15:35 D-Dimer 1400.51 ng/mlDDU (0-234) H 09/14/21 15:35 Abnormal lab findings: Abnormal Labs 09/14/21 09/14/21 09/14/21 15:35 15:35 15:35 WBC Hct MCV 99 H MCHC 30 L RDW Lymph % (Auto) 46.5 H Seg Neuts % (Manual) Lymphocytes % (Manual) Seg Neutrophils # Man Lymphocytes # (Manual) PT 16.4 H INR 1.19 H D-Dimer 1400.51 H ABG pH ABG pO2 ABG HCO3 ABG O2 Saturation ABG Base Excess Potassium 2.7 L* Chloride 95.1 L Carbon Dioxide 16 L Creatinine 1.5 H Glucose 432 H POC Glucose AST ALT Lactate Dehydrogenase Troponin T C-Reactive Protein Total Protein Albumin Cholesterol LDL Cholesterol Direct HDL Cholesterol Urine WBC (Auto) Salicylates Acetaminophen Coronavirus (PCR) 09/14/21 09/14/21 09/14/21 15:35 15:35 15:35 WBC Hct MCV MCHC RDW Lymph % (Auto) Seg Neuts % (Manual) Lymphocytes % (Manual) Seg Neutrophils # Man Lymphocytes # (Manual) PT INR D-Dimer ABG pH ABG pO2 ABG HCO3 ABG O2 Saturation ABG Base Excess Potassium Chloride Carbon Dioxide Creatinine Glucose POC Glucose AST 121 H ALT 142 H Lactate Dehydrogenase Troponin T C-Reactive Protein Total Protein 5.8 L Albumin 3.2 L Cholesterol LDL Cholesterol Direct HDL Cholesterol Urine WBC (Auto) Salicylates < 0.3 L Acetaminophen 5.0 L Coronavirus (PCR) 09/14/21 09/14/21 09/14/21 16:30 20:33 22:29 WBC Hct MCV MCHC RDW Lymph % (Auto) Seg Neuts % (Manual) Lymphocytes % (Manual) Seg Neutrophils # Man Lymphocytes # (Manual) PT INR D-Dimer ABG pH 7.283 L ABG pO2 376.5 H ABG HCO3 19.7 L ABG O2 Saturation 99.5 H ABG Base Excess -6.7 L Potassium Chloride Carbon Dioxide 18 L Creatinine 1.4 H Glucose 255 H POC Glucose AST ALT Lactate Dehydrogenase Troponin T 3.970 H* D C-Reactive Protein Total Protein Albumin Cholesterol 213 H LDL Cholesterol Direct 134 H HDL Cholesterol 67 H Urine WBC (Auto) Salicylates Acetaminophen Coronavirus (PCR) 09/14/21 09/15/21 09/15/21 Unknown 00:08 03:36 WBC 16.2 H Hct 47.3 H MCV 95 H MCHC RDW 12.5 L Lymph % (Auto) Seg Neuts % (Manual) 89.0 H Lymphocytes % (Manual) 3.0 L Seg Neutrophils # Man 14.4 H Lymphocytes # (Manual) 0.5 L PT INR D-Dimer ABG pH ABG pO2 ABG HCO3 ABG O2 Saturation ABG Base Excess Potassium 5.1 H Chloride Carbon Dioxide 21 L Creatinine Glucose 182 H POC Glucose AST ALT Lactate Dehydrogenase Troponin T 12.440 H* D C-Reactive Protein Total Protein Albumin Cholesterol LDL Cholesterol Direct HDL Cholesterol Urine WBC (Auto) 50.0 H Salicylates Acetaminophen Coronavirus (PCR) 09/15/21 09/15/21 09/15/21 06:15 16:34 17:39 WBC Hct MCV MCHC RDW Lymph % (Auto) Seg Neuts % (Manual) Lymphocytes % (Manual) Seg Neutrophils # Man Lymphocytes # (Manual) PT INR D-Dimer ABG pH ABG pO2 ABG HCO3 ABG O2 Saturation ABG Base Excess Potassium Chloride Carbon Dioxide Creatinine Glucose POC Glucose 154 H 131 H AST ALT Lactate Dehydrogenase 1175 H Troponin T C-Reactive Protein 10.40 H Total Protein Albumin Cholesterol LDL Cholesterol Direct HDL Cholesterol Urine WBC (Auto) Salicylates Acetaminophen Coronavirus (PCR) 09/15/21 Unknown WBC Hct MCV MCHC RDW Lymph % (Auto) Seg Neuts % (Manual) Lymphocytes % (Manual) Seg Neutrophils # Man Lymphocytes # (Manual) PT INR D-Dimer ABG pH ABG pO2 ABG HCO3 ABG O2 Saturation ABG Base Excess Potassium Chloride Carbon Dioxide Creatinine Glucose POC Glucose AST ALT Lactate Dehydrogenase Troponin T C-Reactive Protein Total Protein Albumin Cholesterol LDL Cholesterol Direct HDL Cholesterol Urine WBC (Auto) Salicylates Acetaminophen Coronavirus (PCR) Positive A - Diagnostic Findings Chest x-ray: report reviewed, image reviewed Assessment and Plan Imp: 1. STEMI 2. CAD 3. ICMP 4. Vfib arrest 5. Acute respiratory failure, hypoxia 6. ALLISON 7. Covid-19 Rec: 1. Plan as per cardiology 2. Daily SAT and SBT; mentation is appropriate despite the codes 3. ID consult re: Covid-19 4. Prognosis guarded 5. Complex decision-making
[2021-09-15] MEDS: ZINC SULFATE 220 MG CAP PO SCH (22:58)
[2021-09-15] MEDS: SENNOSIDES ORAL LIQD 8.8 MG/5 ML ORAL LIQD PO SCH (22:59)
[2021-09-15] MEDS: FREE WATER PO SCH (23:32)
[2021-09-16] MEDS: INSULIN LISPRO 100 UNIT/ML SUB-Q SCH ×2 (00:37→05:55)
[2021-09-16] MEDS: FREE WATER PO SCH ×3 (03:03→22:49)
[2021-09-16] MEDS: IPRATROPIUM/ALBUTEROL SULFATE 3 ML AMPUL.NEB IH SCH (04:29)
[2021-09-16] MEDS: NITROGLYCERIN 0.4 MG PATCH 24HR TD SCH (05:54)
[2021-09-16 06:05] LABS: Hematocrit 41.2 % (35.5-45.6); Hemoglobin 13.3 gm/dl (11.8-15.2); Mean Corpuscular HGB Conc 32 % (32-34); Mean Corpuscular Volume 95 fl (84-94); Platelet Count 149 K/mm3 (140-440); Red Blood Count 4.35 M/mm3 (3.65-5.03); Red Cell Distribution Width 12.5 % (13.2-15.2)
[2021-09-16 06:35] LABS: Alanine Aminotransferase 198 units/L (7-56); Albumin 3.2 g/dL (3.9-5); BUN/Creatinine Ratio 16; Blood Urea Nitrogen 16 mg/dL (9-20); Hemolysis Index 71
--- NOTE | 2021-09-16 08:50 | Electrocardiograph Report ---
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
[2021-09-16] MEDS ORDERED: methylPREDNISolone Sod Succinate 40 MG/1 ML INJ IV SCH (09:00)
[2021-09-16] MEDS: ASPIRIN 81 MG TAB CHEW FEEDTUBE SCH (09:23)
[2021-09-16] MEDS: CHOLECALCIFEROL (VIT D3) 5,000 UNIT TAB PO SCH (09:23)
[2021-09-16] MEDS: HEPARIN 5,000 UNIT/1 ML VIAL SUB-Q SCH ×2 (09:23→22:40)
[2021-09-16] MEDS: METOPROLOL TARTRATE 50 MG TAB FEEDTUBE SCH ×2 (09:23→22:39)
[2021-09-16] MEDS: LISINOPRIL 5 MG TAB PO SCH (09:24)
[2021-09-16] MEDS: ASCORBIC ACID 500 MG TAB PO SCH (09:24)
[2021-09-16] MEDS: ZINC SULFATE 220 MG CAP PO SCH ×2 (09:25→22:39)
[2021-09-16] MEDS: FAMOTIDINE 20 MG TAB FEEDTUBE SCH ×2 (09:25→22:39)
[2021-09-16] MEDS: CLOPIDOGREL 75 MG TAB FEEDTUBE SCH (09:25)
--- NOTE | 2021-09-16 09:39 | Progress Note ---
Assessment and Plan 41 y/o male with Vfib arrest x2, status post self extubation with hypercholesterolemia, found to be COVID positive 1. Cholesterol control 2. Started steroids given positive COVID state and Cardiac issues. Patient is vaccinated x2 3. Diet control 4. Monitor in unit for 24 hours and then transfer out. Subjective Date of service: 09/16/21 Interval history: Self extubated this am. Awake and alert. Talking to on iPad. Objective Vital Signs - 12hr 09/15/21 09/15/21 09/15/21 21:45 22:00 22:15 Temperature Pulse Rate 100 H 102 H 97 H Pulse Rate [ Right Radial] Respiratory 12 16 16 Rate Blood Pressure 135/95 137/101 135/99 O2 Sat by Pulse 100 100 100 Oximetry 09/15/21 09/15/21 09/15/21 22:30 22:45 23:00 Temperature Pulse Rate 94 H 93 H 91 H Pulse Rate [ Right Radial] Respiratory 16 16 16 Rate Blood Pressure 144/96 141/95 138/96 O2 Sat by Pulse 93 100 100 Oximetry 09/15/21 09/15/21 09/15/21 23:04 23:15 23:30 Temperature Pulse Rate 91 H 98 H 88 Pulse Rate [ Right Radial] Respiratory 14 16 Rate Blood Pressure 138/96 143/98 154/102 O2 Sat by Pulse 100 Oximetry 09/15/21 09/15/21 09/15/21 23:33 23:34 23:45 Temperature Pulse Rate 88 89 89 Pulse Rate [ Right Radial] Respiratory 16 16 Rate Blood Pressure 154/102 154/102 142/101 O2 Sat by Pulse 100 100 100 Oximetry 09/16/21 09/16/21 09/16/21 00:00 00:15 00:30 Temperature 98.4 F Pulse Rate 90 89 92 H Pulse Rate [ 83 Right Radial] Respiratory 16 16 16 Rate Blood Pressure 145/97 143/99 137/96 O2 Sat by Pulse 100 100 100 Oximetry 09/16/21 09/16/21 09/16/21 00:45 01:00 01:15 Temperature Pulse Rate 94 H 91 H 97 H Pulse Rate [ Right Radial] Respiratory 16 16 16 Rate Blood Pressure 139/88 133/90 131/88 O2 Sat by Pulse 100 100 100 Oximetry 09/16/21 09/16/21 09/16/21 01:30 01:45 02:00 Temperature Pulse Rate 102 H 96 H 96 H Pulse Rate [ Right Radial] Respiratory 16 16 16 Rate Blood Pressure 124/82 131/89 133/92 O2 Sat by Pulse 100 100 100 Oximetry 09/16/21 09/16/21 09/16/21 02:15 02:30 02:45 Temperature Pulse Rate 98 H 96 H 95 H Pulse Rate [ Right Radial] Respiratory 16 16 16 Rate Blood Pressure 125/87 127/84 125/84 O2 Sat by Pulse 100 100 Oximetry 09/16/21 09/16/21 09/16/21 03:00 03:15 03:20 Temperature 101.8 F H Pulse Rate 94 H 93 H Pulse Rate [ Right Radial] Respiratory 16 16 Rate Blood Pressure 133/89 132/90 O2 Sat by Pulse 100 100 Oximetry 09/16/21 09/16/21 09/16/21 03:30 03:45 04:00 Temperature Pulse Rate 93 H 89 95 H Pulse Rate [ 83 Right Radial] Respiratory 16 16 16 Rate Blood Pressure 132/89 139/93 138/90 O2 Sat by Pulse 100 100 100 Oximetry 09/16/21 09/16/21 09/16/21 04:15 04:30 04:45 Temperature Pulse Rate 89 100 H 99 H Pulse Rate [ Right Radial] Respiratory 16 16 16 Rate Blood Pressure 141/95 139/91 135/88 O2 Sat by Pulse 100 100 100 Oximetry 09/16/21 09/16/21 09/16/21 05:00 05:15 05:30 Temperature Pulse Rate 88 89 89 Pulse Rate [ Right Radial] Respiratory 16 16 16 Rate Blood Pressure 141/91 141/92 140/93 O2 Sat by Pulse 100 100 100 Oximetry 09/16/21 09/16/21 09/16/21 05:45 05:54 06:00 Temperature Pulse Rate 101 H 101 H 111 H Pulse Rate [ Right Radial] Respiratory 16 12 Rate Blood Pressure 135/90 135/90 149/92 O2 Sat by Pulse 100 100 Oximetry 09/16/21 09/16/21 09/16/21 06:15 06:31 07:15 Temperature Pulse Rate 119 H 123 H Pulse Rate [ Right Radial] Respiratory 21 19 Rate Blood Pressure 149/92 118/77 O2 Sat by Pulse 100 100 95 Oximetry 09/16/21 09/16/21 09/16/21 08:30 09:23 09:24 Temperature 98 F Pulse Rate 100 H 96 H Pulse Rate [ Right Radial] Respiratory Rate Blood Pressure 128/82 128/82 O2 Sat by Pulse Oximetry 09/16/21 09:27 Temperature Pulse Rate Pulse Rate [ Right Radial] Respiratory Rate Blood Pressure O2 Sat by Pulse 94 Oximetry Constitutional: other (critically ill on ventilator) Eyes: non-icteric ENT: oropharynx moist Neck: supple Effort: normal Ascultation: Bilateral: clear Cardiovascular: regular rate and rhythm (no mrg) Gastrointestinal: normoactive bowel sounds, soft, non-tender Integumentary: normal Extremities: no cyanosis, no edema, pink and warm Neurologic: normal mental status, non-focal exam, pupils equal and round Psychiatric: mood appropriate, affect normal CBC and BMP: 09/16/21 05:49 09/16/21 05:49 ABG, PT/INR, D-dimer: ABG ABG pH 7.501 (7.320-7.450) H 09/16/21 04:09 POC ABG pCO2 30.5 mmHg (32.0-48.0) L 09/16/21 04:09 ABG pCO2 42.6 mm Hg 09/14/21 16:30 POC ABG pO2 148.3 mmHg (83-108) H 09/16/21 04:09 ABG pO2 376.5 mm Hg (80.0-90.0) H 09/14/21 16:30 POC ABG HCO3 23.3 09/16/21 04:09 ABG O2 Saturation 99.4 (0-100) 09/16/21 04:09 PT/INR, D-dimer PT 16.4 Sec. (12.2-14.9) H 09/14/21 15:35 INR 1.19 (0.87-1.13) H 09/14/21 15:35 D-Dimer > 82945 ng/mlDDU (0-234) H 09/16/21 05:49 Abnormal lab findings: Abnormal Labs 09/14/21 09/14/21 09/14/21 15:35 15:35 15:35 WBC Hct MCV 99 H MCHC 30 L RDW Lymph % (Auto) 46.5 H Seg Neuts % (Manual) Lymphocytes % (Manual) Seg Neutrophils # Man Lymphocytes # (Manual) PT 16.4 H INR 1.19 H D-Dimer 1400.51 H ABG pH POC ABG pCO2 POC ABG pO2 ABG pO2 ABG HCO3 ABG O2 Saturation ABG Base Excess ABG Oxyhemoglobin ABG Potassium ABG Glucose Potassium 2.7 L* Chloride 95.1 L Carbon Dioxide 16 L Creatinine 1.5 H Glucose 432 H POC Glucose Calcium AST ALT Lactate Dehydrogenase Troponin T C-Reactive Protein Total Protein Albumin Cholesterol LDL Cholesterol Direct HDL Cholesterol Arterial Blood Glucose Arterial Blood Ionized Calcium Urine WBC (Auto) Salicylates Acetaminophen Coronavirus (PCR) 09/14/21 09/14/21 09/14/21 15:35 15:35 15:35 WBC Hct MCV MCHC RDW Lymph % (Auto) Seg Neuts % (Manual) Lymphocytes % (Manual) Seg Neutrophils # Man Lymphocytes # (Manual) PT INR D-Dimer ABG pH POC ABG pCO2 POC ABG pO2 ABG pO2 ABG HCO3 ABG O2 Saturation ABG Base Excess ABG Oxyhemoglobin ABG Potassium ABG Glucose Potassium Chloride Carbon Dioxide Creatinine Glucose POC Glucose Calcium AST 121 H ALT 142 H Lactate Dehydrogenase Troponin T C-Reactive Protein Total Protein 5.8 L Albumin 3.2 L Cholesterol LDL Cholesterol Direct HDL Cholesterol Arterial Blood Glucose Arterial Blood Ionized Calcium Urine WBC (Auto) Salicylates < 0.3 L Acetaminophen 5.0 L Coronavirus (PCR) 09/14/21 09/14/21 09/14/21 16:30 20:33 22:29 WBC Hct MCV MCHC RDW Lymph % (Auto) Seg Neuts % (Manual) Lymphocytes % (Manual) Seg Neutrophils # Man Lymphocytes # (Manual) PT INR D-Dimer ABG pH 7.283 L POC ABG pCO2 POC ABG pO2 ABG pO2 376.5 H ABG HCO3 19.7 L ABG O2 Saturation 99.5 H ABG Base Excess -6.7 L ABG Oxyhemoglobin ABG Potassium ABG Glucose Potassium Chloride Carbon Dioxide 18 L Creatinine 1.4 H Glucose 255 H POC Glucose Calcium AST ALT Lactate Dehydrogenase Troponin T 3.970 H* D C-Reactive Protein Total Protein Albumin Cholesterol 213 H LDL Cholesterol Direct 134 H HDL Cholesterol 67 H Arterial Blood Glucose Arterial Blood Ionized Calcium Urine WBC (Auto) Salicylates Acetaminophen Coronavirus (PCR) 09/14/21 09/15/21 09/15/21 Unknown 00:08 03:36 WBC 16.2 H Hct 47.3 H MCV 95 H MCHC RDW 12.5 L Lymph % (Auto) Seg Neuts % (Manual) 89.0 H Lymphocytes % (Manual) 3.0 L Seg Neutrophils # Man 14.4 H Lymphocytes # (Manual) 0.5 L PT INR D-Dimer ABG pH POC ABG pCO2 POC ABG pO2 ABG pO2 ABG HCO3 ABG O2 Saturation ABG Base Excess ABG Oxyhemoglobin ABG Potassium ABG Glucose Potassium 5.1 H Chloride Carbon Dioxide 21 L Creatinine Glucose 182 H POC Glucose Calcium AST ALT Lactate Dehydrogenase Troponin T 12.440 H* D C-Reactive Protein Total Protein Albumin Cholesterol LDL Cholesterol Direct HDL Cholesterol Arterial Blood Glucose Arterial Blood Ionized Calcium Urine WBC (Auto) 50.0 H Salicylates Acetaminophen Coronavirus (PCR) 09/15/21 09/15/21 09/15/21 06:15 16:34 17:39 WBC Hct MCV MCHC RDW Lymph % (Auto) Seg Neuts % (Manual) Lymphocytes % (Manual) Seg Neutrophils # Man Lymphocytes # (Manual) PT INR D-Dimer ABG pH POC ABG pCO2 POC ABG pO2 ABG pO2 ABG HCO3 ABG O2 Saturation ABG Base Excess ABG Oxyhemoglobin ABG Potassium ABG Glucose Potassium Chloride Carbon Dioxide Creatinine Glucose POC Glucose 154 H 131 H Calcium AST ALT Lactate Dehydrogenase 1175 H Troponin T C-Reactive Protein 10.40 H Total Protein Albumin Cholesterol LDL Cholesterol Direct HDL Cholesterol Arterial Blood Glucose Arterial Blood Ionized Calcium Urine WBC (Auto) Salicylates Acetaminophen Coronavirus (PCR) 09/15/21 09/16/21 09/16/21 Unknown 04:09 05:33 WBC Hct MCV MCHC RDW Lymph % (Auto) Seg Neuts % (Manual) Lymphocytes % (Manual) Seg Neutrophils # Man Lymphocytes # (Manual) PT INR D-Dimer ABG pH 7.501 H POC ABG pCO2 30.5 L POC ABG pO2 148.3 H ABG pO2 ABG HCO3 ABG O2 Saturation ABG Base Excess ABG Oxyhemoglobin 98.7 H ABG Potassium 3.3 L ABG Glucose 130 H Potassium Chloride Carbon Dioxide Creatinine Glucose POC Glucose 107 H Calcium AST ALT Lactate Dehydrogenase Troponin T C-Reactive Protein Total Protein Albumin Cholesterol LDL Cholesterol Direct HDL Cholesterol Arterial Blood Glucose 130 H Arterial Blood Ionized Calcium 4.5 L Urine WBC (Auto) Salicylates Acetaminophen Coronavirus (PCR) Positive A 09/16/21 09/16/21 09/16/21 05:49 05:49 05:49 WBC 14.2 H Hct MCV 95 H MCHC RDW 12.5 L Lymph % (Auto) Seg Neuts % (Manual) Lymphocytes % (Manual) Seg Neutrophils # Man Lymphocytes # (Manual) PT INR D-Dimer > 62357 H ABG pH POC ABG pCO2 POC ABG pO2 ABG pO2 ABG HCO3 ABG O2 Saturation ABG Base Excess ABG Oxyhemoglobin ABG Potassium ABG Glucose Potassium Chloride Carbon Dioxide 20 L Creatinine Glucose 123 H POC Glucose Calcium 8.0 L AST 210 H ALT 198 H Lactate Dehydrogenase 1274 H Troponin T C-Reactive Protein 9.40 H Total Protein 6.2 L Albumin 3.2 L Cholesterol LDL Cholesterol Direct HDL Cholesterol Arterial Blood Glucose Arterial Blood Ionized Calcium Urine WBC (Auto) Salicylates Acetaminophen Coronavirus (PCR)
--- NOTE | 2021-09-16 10:52 | Consultation ---
History of Present Illness - Reason for Consult Consult date: 09/16/21 - History of Present Illness 41-year-old male no known past medical history plan to the hospital in full cardiac arrest. CPR was started on presentation the hospital and was found to be in agonal breathing. Pulse was regained. He was intubated, however subsequently self extubated this morning. He was found to be Covid positive. He is received 2 doses of the vaccination. He was taken for cardiac cath and was found to have complete occlusion of the LAD. Febrile overnight to 101.8 with a white count 14.2. Normal renal function. Elevated liver enzymes. Urine cultures no growth so far. Currently on 2 L nasal cannula. Imaging personally reviewed: Chest x-ray: Mild interstitial prominence bilaterally, left lower lobe focal consolidation Review of systems: Deferred to reduce to the risk of transmission of COVID-19 Past History Past Medical History: COPD, other (Family history of coronary disease) Past Surgical History: No surgical history Social history: no significant social history, lives with family, full code Family history: CAD, other (no pulm issues reported) Medications and Allergies Allergies Allergy/AdvReac Type Severity Reaction Status Date / Time No Known Allergies Allergy Unverified 09/14/21 16:23 Home Medications Medication Instructions Recorded Confirmed Last Taken Type Ipratropium/Albuter (Nf) 2 puff IH QID 09/15/21 09/15/21 Unknown History [Combivent (Nf)] Active Meds: Active Medications Acetaminophen (Acetaminophen 325 Mg Tab) 650 mg PO Q4H PRN PRN Reason: Pain MILD(1-3)/Fever >100.5/BHATIA Hydrocodone Bitart/Acetaminophen (Hydrocodone/Acetaminophen 5-325 Mg Tab) 1 each PO Q6H PRN PRN Reason: Pain, Moderate (4-6) Lipase/Protease/Amylase (Lipase 10,500/Protease 25,000/Amylase 43,750 (Units) Dr Ortega) 1 each FEEDTUBE PRN PRN PRN Reason: For Clogged Feeding Tube Ascorbic Acid (Ascorbic Acid 500 Mg Tab) 500 mg PO QDAY [facility] Last Admin: 09/16/21 09:24 Dose: 500 mg Documented by: Aspirin (Aspirin 81 Mg Tab Chew) 162 mg FEEDTUBE QDAY [facility] Last Admin: 09/16/21 09:23 Dose: 162 mg Documented by: Atorvastatin Calcium (Atorvastatin 40 Mg Tab) 40 mg FEEDTUBE QHS [facility] Last Admin: 09/15/21 23:31 Dose: 40 mg Documented by: Azithromycin (Azithromycin 250 Mg/6.25 Ml Oral Liqd) 500 mg PO Q24HR [facility]; Protocol Cholecalciferol (Cholecalciferol (Vit D3) 5,000 Unit Tab) 5,000 unit PO DAILY [facility] Last Admin: 09/16/21 09:23 Dose: 5,000 unit Documented by: Clopidogrel Bisulfate (Clopidogrel 75 Mg Tab) 75 mg FEEDTUBE QDAY [facility] Last Admin: 09/16/21 09:25 Dose: 75 mg Documented by: Dexamethasone (Dexamethasone 4 Mg/Ml Vial) 6 mg IV Q24HR [facility] Stop: 09/25/21 10:01 Dextrose (Dextrose 50% In Water (25gm) 50 Ml Syringe) 50 ml IV Q30MIN PRN; Protocol PRN Reason: Hypoglycemia Famotidine (Famotidine 20 Mg Tab) 20 mg FEEDTUBE BID [facility] Last Admin: 09/16/21 09:25 Dose: 20 mg Documented by: Heparin Sodium (Porcine) (Heparin 5,000 Unit/1 Ml Vial) 5,000 unit SUB-Q Q12HR [facility] Last Admin: 09/16/21 09:23 Dose: 5,000 unit Documented by: Amiodarone HCl 360 mg/ (Dextrose) 200 mls @ 33.333 mls/hr IV DIRECT [facility]; Protocol Last Titration: 09/15/21 21:00 Dose: Infused Documented by: Ceftriaxone Sodium (Rocephin/Ns 2 Gm/100 Ml) 2 gm in 100 mls @ 200 mls/hr IV Q24H [facility]; Protocol Last Admin: 09/15/21 18:51 Dose: 200 mls/hr Documented by: Insulin Human Lispro (Insulin Lispro 100 Unit/Ml) 0 unit SUB-Q Q6HR [facility]; Anya col Last Admin: 09/16/21 05:55 Dose: Not Given Documented by: Lisinopril (Lisinopril 5 Mg Tab) 5 mg PO QDAY [facility] Last Admin: 09/16/21 09:24 Dose: 5 mg Documented by: Metoclopramide HCl (Metoclopramide 10 Mg/2 Ml Inj) 10 mg IV Q6H PRN PRN Reason: Nausea And Vomiting Metoprolol Tartrate (Metoprolol Tartrate 50 Mg Tab) 50 mg FEEDTUBE BID [facility] Last Admin: 09/16/21 09:23 Dose: 50 mg Documented by: Nitroglycerin (Nitroglycerin 0.4 Mg Patch 24hr) 0.4 mg TD DAILY@0600 [facility] Last Admin: 09/16/21 05:54 Dose: 0.4 mg Documented by: Ondansetron HCl (Ondansetron 4 Mg/2 Ml Inj) 4 mg IV Q8H PRN PRN Reason: Nausea And Vomiting Oxycodone/Acetaminophen (Oxycodone /Acetaminophen 5-325mg Tab) 1 tab PO Q6H PRN PRN Reason: Pain, Moderate (4-6) Senna (Sennosides Oral Liqd 8.8 Mg/5 Ml Oral Liqd) 8.8 mg PO QHS [facility] Last Admin: 09/15/21 22:59 Dose: Not Given Documented by: Simple Syrup (Simple Syrup 15 Ml) 15 ml FEEDTUBE PRN PRN PRN Reason: Hypoglycemia Simple Syrup (Simple Syrup 15 Ml) 30 ml FEEDTUBE PRN PRN PRN Reason: Hypoglycemia Sodium Bicarbonate (Sodium Bicarbonate 325 Mg Tab) 325 mg FEEDTUBE PRN PRN PRN Reason: For Clogged Feeding Tube Sodium Chloride (Sodium Chloride 0.9% 10 Ml Flush Syringe) 10 ml IV BID [facility] Last Admin: 09/16/21 09:25 Dose: 10 ml Documented by: Sodium Chloride (Sodium Chloride 0.9% 10 Ml Flush Syringe) 10 ml IV PRN PRN PRN Reason: LINE FLUSH Zinc Sulfate (Zinc Sulfate 220 Mg Cap) 220 mg PO BID [facility] Last Admin: 09/16/21 09:25 Dose: 220 mg Documented by: Physical Examination - Physical Exam Narrative exam: Physical exam deferred to reduce risk of transmission of COVID-19. Please refer to primary team's note. - Constitutional Vitals: Vital Signs Temp Pulse Resp BP Pulse Ox 98 F 96 H 19 128/82 94 09/16/21 08:30 09/16/21 09:24 09/16/21 06:31 09/16/21 09:24 09/16/21 09:27 Temperature -Last 24 Hours Temperature 98 F Temperature 101.8 F Temperature 98.4 F Temperature 98.7 F Temperature 99.5 F Results - Labs CBC & Chem 7: 09/16/21 05:49 09/16/21 05:49 Labs: Abnormal lab results 09/15/21 09/15/21 09/15/21 Range/Units 16:34 17:39 Unknown WBC (4.5-11.0) K/mm3 MCV (84-94) fl RDW (13.2-15.2) % D-Dimer (0-234) ng/mlDDU ABG pH (7.320-7.450) POC ABG pCO2 (32.0-48.0) mmHg POC ABG pO2 (83-108) mmHg ABG Oxyhemoglobin (94-98) ABG Potassium (3.40-4.50) mmol/L ABG Glucose (65-95) mg/dL Carbon Dioxide (22-30) mmol/L Glucose (75-100) mg/dL POC Glucose 131 H (70-105) mg/dL Calcium (8.4-10.2) mg/dL AST (5-40) units/L ALT (7-56) units/L Lactate Dehydrogenase 1175 H (91-180) units/L C-Reactive Protein 10.40 H (0.00-1.30) mg/dL Total Protein (6.3-8.2) g/dL Albumin (3.9-5) g/dL Arterial Blood Glucose (65-95) mg/dL Arterial Blood Ionized Calcium (4.6-5.3) mg/dL Coronavirus (PCR) Positive A (Negative) 09/16/21 09/16/21 09/16/21 Range/Units 04:09 05:33 05:49 WBC 14.2 H (4.5-11.0) K/mm3 MCV 95 H (84-94) fl RDW 12.5 L (13.2-15.2) % D-Dimer (0-234) ng/mlDDU ABG pH 7.501 H (7.320-7.450) POC ABG pCO2 30.5 L (32.0-48.0) mmHg POC ABG pO2 148.3 H (83-108) mmHg ABG Oxyhemoglobin 98.7 H (94-98) ABG Potassium 3.3 L (3.40-4.50) mmol/L ABG Glucose 130 H (65-95) mg/dL Carbon Dioxide (22-30) mmol/L Glucose (75-100) mg/dL POC Glucose 107 H (70-105) mg/dL Calcium (8.4-10.2) mg/dL AST (5-40) units/L ALT (7-56) units/L Lactate Dehydrogenase (91-180) units/L C-Reactive Protein (0.00-1.30) mg/dL Total Protein (6.3-8.2) g/dL Albumin (3.9-5) g/dL Arterial Blood Glucose 130 H (65-95) mg/dL Arterial Blood Ionized Calcium 4.5 L (4.6-5.3) mg/dL Coronavirus (PCR) (Negative) 09/16/21 09/16/21 Range/Units 05:49 05:49 WBC (4.5-11.0) K/mm3 MCV (84-94) fl RDW (13.2-15.2) % D-Dimer > 37054 H (0-234) ng/mlDDU ABG pH (7.320-7.450) POC ABG pCO2 (32.0-48.0) mmHg POC ABG pO2 (83-108) mmHg ABG Oxyhemoglobin (94-98) ABG Potassium (3.40-4.50) mmol/L ABG Glucose (65-95) mg/dL Carbon Dioxide 20 L (22-30) mmol/L Glucose 123 H (75-100) mg/dL POC Glucose (70-105) mg/dL Calcium 8.0 L (8.4-10.2) mg/dL AST 210 H (5-40) units/L ALT 198 H (7-56) units/L Lactate Dehydrogenase 1274 H (91-180) units/L C-Reactive Protein 9.40 H (0.00-1.30) mg/dL Total Protein 6.2 L (6.3-8.2) g/dL Albumin 3.2 L (3.9-5) g/dL Arterial Blood Glucose (65-95) mg/dL Arterial Blood Ionized Calcium (4.6-5.3) mg/dL Coronavirus (PCR) (Negative) Assessment and Plan Cultures: Urine culture no growth so far A/P: 41 yo M no known past medical history #COVID-19 pneumonia: Has left sided opacity, however in the setting of arrest and resuscitation unclear if this is truly COVID or other finding. #Cardiac arrest: with complete occlusion of the LAD. May have been exacerbated by COVID, or could be a coincidental finding. #Acute hypoxemic respiratory failure: Likely secondary to COVID-19 infection/arrest. Currently on 3L NC Recommendations: -Steroids per pulmonary -Remdesivir 200 mg IV q day x 1 followed by 100 mg IV q day x 4 days -Obtain q48-72h inflammatory markers - ferritin, Ddimer, CRP, LDH -Continue ceftriaxone 2 gm IV qday and azithromycin 500 mg PO qday, if procalcitonin <0.25 ng/mL stop antibiotics -Anticoagulation per hospital protocol -Proning as able Thank you for the consult, we will continue to follow. MD Marcelo [facility] O: [phone] F: [phone]
[2021-09-16] MEDS ORDERED: REMDESIVIR 200 MG in SODIUM CHLORIDE 0.9% 250ML 250 ML IV SCH (11:30)
[2021-09-16] MEDS: dexAMETHasone 4 MG/ML VIAL IV SCH (12:22)
--- NOTE | 2021-09-16 12:28 | Progress Note ---
Assessment and Plan Assessment and plan: This is a 41-year-old male admitted with post cardiac arrest with ROSC 2/2 STEMI s/p emergent PCI in [facility] Hospital Course to Date: This is a 41-year-old male without significant medical history who presented to the emergency department on 09/14/2021 in cardiac arrest after being noted that he started "jerking and his eyes rolled back" in the backseat of his car. She pulled into the ambulance bay and an EMS personnel in the [place] started CPR and found the patient with agonal breathing. ACLS was started in the emergency department and he was noted to be in V. fib, receivedseveral shocks and was given amiodarone and lidocaine. He was also intubated during this time and rece ived a femoral line. Work-up in the emergency department included ECG which showed hyperacute T waves and cardiology was consulted. Patient was taken emergently to the cardiac [facility] where it was noted that he had a complete occlusion of the LAD and had a successful angioplasty. He also had severe hypokalemia which was treated, elevated D-dimer, metabolic acidosis and acute kidney injury. Patient was admitted to the hospitalist service s/p cardiac arrest, STEMI, acute kidney injury, acute hypoxic respiratory failure with consults to cardiology and [facility]. 09/15: Patient had a CTA and CT head today, remains on the ventilator. Continues amiodarone and heparin drip. Received 1 L LR bolus for ALLISON. Started on bolus feeding. COVID-19 PCR positive. 09/16: Patient self-extubated this am, now stable on 2LNC. Patient with periods of disorientation, otherwise awake and alert. Rafiq temp overnight, orders placed for blood cultures. Continue current IV ABx, ID consult pending. Given worsening Ddimer will also r/o DVT, BLE doppler ordered.. D/w [facility] patient is stable for transfer to the floor. Assessment and Plan #Neuro:Anxiety -Patient self extubated this am -Awake and alert but confused -CT head shows no acute abnormality -Avoid benzodiazepine to reduce the possibility of delirium -Reorientation as needed -Prn analgesia for CPOT greater than 3 -Maintenance of sleep-wake cycle #Cardiac: STEMI #s/p VFib arrest with ROSC -Presented with vfib arrest, shocked mulitple times before ROSC acheived -09/14 s/p Emergent Caridac Cath which showed 100% occlusion of the LAD X2 Stents -S/p Amio gtt -SR to ST on the monitor this am -Echocardiogram pending -Continue blood pressure monitor per protocol -Maintain MAP above 65 -Continue Aspirin, plavix, & lipitor -Continue AC- Heparin SubQ -Lipid panel noted in chart -Cardiology on consult, appreciated recommendations #Respiratory: Acute respiratory failure #COVID Pneumonia -Intubated on 09/14 during code -Self-Extubated this am 09/16 -Now on 2L NC SPO2 above 95% -CCM consulted, appreciate recommendations -VAP bundle addressed -Aspiration precaution HOB above 30 -PRN ABG and CXR per CCM -Continue O2 supplementation and SPO2 monitoring for SPO2 goal above 95% #GI: Transaminitis -Elevated LFTs most likely reactive post code -CTA chest shows diffuse thickening throughout the colon and fluid surrounding the gallbladder fossa and gallbladder -Continue to trend LFTs -Patient failed bedside swallow eval -NTR consult for tube feedings -Speech consulted for swallow eval -Might need to continue enteral feedings for now -Continue PPI-Pepcid -BR: senna #: Acute kidney injury secondary likely ATN #Hyperkalemia-resolved #Metabolic acidosis -Most likely due to code, hypoperfusion -Src improved this am, downs to 1.0 -Renal US pending -Nephrology consulted, appreciate recommendations -Strict intake and output -Avoid nephrotoxic medications; Renally dose medications -Alvarado in place -Monitor and replace electrolytes as needed #ID:COVID Pneumonia #Leukocytosis -Patient COVID swab came back positive -CTA chest shows bilateral lower lobe infiltrates with opacities -Leukocytosis downtrending -Patient febrile overnight -Orders placed for blood culture -Infectious disease consulted -Continue current empiric IV Abx for now -Droplet/contact precautions -Continue IV Steroids -Vitamin C, vitamin D, zinc -Trend COVID-19 inflammatory markers -Monitor WBC and temperature curve -Trend CBC #Endo:Glycemic Control -Continue SSI Q6hrs wile NPO/TF -Avoid Hypoglycemia #DVT Prophylaxis -Continue AC- Heparin SubQ -SCDs to bilateral lower extremities while in bed The high probability of a clinically significant, sudden or life threatening deterioration of the [multi] system(s) required my full and direct attention, intervention and personal management. The aggregate critical care time was [60] minutes. This time is in addition to time spent performing reported procedures but includes the following: [x] Data Review and interpretation [x] Patient assessment and monitoring of vital signs [x] Documentation [x] Medication orders and management Disposition Plan: ICU Total Time Spent with Patient (Minutes): 60 History Interval history: Patient seen and examined at the bedside. Self-extubated himself this am, now on 2L NC SPO2 above 95%. Patient is awake, following commands, however still with periods of disorientation. Hospitalist Physical - Constitutional Vitals: Temp Pulse Resp BP Pulse Ox 98 F 94 H 25 H 138/88 98 09/16/21 08:30 09/16/21 11:45 09/16/21 11:45 09/16/21 11:45 09/16/21 11:45 General appearance: Present: no acute distress, well-nourished - EENT Eyes: Present: PERRL ENT: hearing intact, clear oral mucosa - Neck Neck: Present: normal ROM - Respiratory Respiratory effort: normal Respiratory: bilateral: rhonchi - Cardiovascular Rhythm: regular Heart Sounds: Present: S1 & S2 - Extremities Extremities: no ischemia, pulses intact, pulses symmetrical Extremity abnormal: edema - Peripheral Assessment Generalized Edema Type: Non-pitting Edema Degree: 1+ Capillary Refill: < 3 seconds Skin Temperature: Warm Peripheral Pulses: within normal limits - Abdominal General gastrointestinal: soft, non-tender, normal bowel sounds - Integumentary Integumentary: Present: clear, warm, dry - Psychiatric Psychiatric: cooperative, depressed - Neurologic Neurologic: moves all extremities, other (Periods of disorientation) - Allied Health Allied health notes reviewed: nursing HEART Score - HEART Score Age: < 45 Risk factors: 1-2 risk factors Troponin: Troponin T 12.440 ng/mL (0.00-0.029) H* D 09/15/21 03:36 Troponin: 1-3x normal limit - Critical Actions Critical Actions: >7 pts:50-65% risk of adverse cardiac event. Early invasive measures Results - Labs CBC & Chem 7: 09/17/21 04:24 09/17/21 04:24 Labs: Laboratory Last Values WBC 14.2 K/mm3 (4.5-11.0) H 09/16/21 05:49 RBC 4.35 M/mm3 (3.65-5.03) 09/16/21 05:49 Hgb 13.3 gm/dl (11.8-15.2) 09/16/21 05:49 Hct 41.2 % (35.5-45.6) D 09/16/21 05:49 MCV 95 fl (84-94) H 09/16/21 05:49 MCH 31 pg (28-32) 09/16/21 05:49 MCHC 32 % (32-34) 09/16/21 05:49 RDW 12.5 % (13.2-15.2) L 09/16/21 05:49 Plt Count 149 K/mm3 (140-440) 09/16/21 05:49 Lymph % (Auto) 46.5 % (13.4-35.0) H 09/14/21 15:35 [place] % (Auto) 6.6 % (0.0-7.3) 09/14/21 15:35 Eos % (Auto) 1.1 % (0.0-4.3) 09/14/21 15:35 Baso % (Auto) 0.6 % (0.0-1.8) 09/14/21 15:35 Lymph # (Auto) 2.9 K/mm3 (1.2-5.4) 09/14/21 15:35 [place] # (Auto) 0.4 K/mm3 (0.0-0.8) 09/14/21 15:35 Eos # (Auto) 0.1 K/mm3 (0.0-0.4) 09/14/21 15:35 Baso # (Auto) 0.0 K/mm3 (0.0-0.1) 09/14/21 15:35 Add Manual Diff Complete 09/15/21 00:08 Total Counted 100 09/15/21 00:08 Seg Neutrophils % 45.2 % (40.0-70.0) 09/14/21 15:35 Seg Neuts % (Manual) 89.0 % (40.0-70.0) H 09/15/21 00:08 Band Neutrophils % 3.0 % 09/15/21 00:08 Lymphocytes % (Manual) 3.0 % (13.4-35.0) L 09/15/21 00:08 Monocytes % (Manual) 5.0 % (0.0-7.3) 09/15/21 00:08 Nucleated RBC % Not Reportable 09/15/21 00:08 Seg Neutrophils # 2.8 K/mm3 (1.8-7.7) 09/14/21 15:35 Seg Neutrophils # Man 14.4 K/mm3 (1.8-7.7) H 09/15/21 00:08 Band Neutrophils # 0.5 K/mm3 09/15/21 00:08 Lymphocytes # (Manual) 0.5 K/mm3 (1.2-5.4) L 09/15/21 00:08 Abs React Lymphs (Man) 0.0 K/mm3 09/15/21 00:08 Monocytes # (Manual) 0.8 K/mm3 (0.0-0.8) 09/15/21 00:08 Eosinophils # (Manual) 0.0 K/mm3 (0.0-0.4) 09/15/21 00:08 Basophils # (Manual) 0.0 K/mm3 (0.0-0.1) 09/15/21 00:08 Metamyelocytes # 0.0 K/mm3 09/15/21 00:08 Myelocytes # 0.0 K/mm3 09/15/21 00:08 Promyelocytes # 0.0 K/mm3 09/15/21 00:08 Blast Cells # 0.0 K/mm3 09/15/21 00:08 WBC Morphology Not Reportable 09/15/21 00:08 Hypersegmented Neuts Not Reportable 09/15/21 00:08 Hyposegmented Neuts Not Reportable 09/15/21 00:08 Hypogranular Neuts Not Reportable 09/15/21 00:08 Smudge Cells Not Reportable 09/15/21 00:08 Toxic Granulation Not Reportable 09/15/21 00:08 Toxic Vacuolation Not Reportable 09/15/21 00:08 Dohle Bodies Not Reportable 09/15/21 00:08 Pelger-Huet Anomaly Not Reportable 09/15/21 00:08 Sarwat Rods Not Reportable 09/15/21 00:08 Platelet Estimate Consistent w auto 09/15/21 00:08 Clumped Platelets Not Reportable 09/15/21 00:08 Plt Clumps, EDTA Not Reportable 09/15/21 00:08 Large Platelets Not Reportable 09/15/21 00:08 Giant Platelets Not Reportable 09/15/21 00:08 Platelet Satelliting Not Reportable 09/15/21 00:08 Plt Morphology Comment Not Reportable 09/15/21 00:08 RBC Morphology Normal 09/15/21 00:08 Dimorphic RBCs Not Reportable 09/15/21 00:08 Polychromasia Not Reportable 09/15/21 00:08 Hypochromasia Not Reportable 09/15/21 00:08 Poikilocytosis Not Reportable 09/15/21 00:08 Anisocytosis Not Reportable 09/15/21 00:08 Microcytosis Not Reportable 09/15/21 00:08 Macrocytosis Not Reportable 09/15/21 00:08 Spherocytes Not Reportable 09/15/21 00:08 Pappenheimer Bodies Not Reportable 09/15/21 00:08 Sickle Cells Not Reportable 09/15/21 00:08 Target Cells Not Reportable 09/15/21 00:08 Tear Drop Cells Not Reportable 09/15/21 00:08 Ovalocytes Not Reportable 09/15/21 00:08 Helmet Cells Not Reportable 09/15/21 00:08 Obrien-Luxora Bodies Not Reportable 09/15/21 00:08 [place] Rings Not Reportable 09/15/21 00:08 Chantal Cells Not Reportable 09/15/21 00:08 Bite Cells Not Reportable 09/15/21 00:08 Crenated Cell Not Reportable 09/15/21 00:08 Elliptocytes Not Reportable 09/15/21 00:08 Acanthocytes (Spur) Not Reportable 09/15/21 00:08 Rouleaux Not Reportable 09/15/21 00:08 Hemoglobin C Crystals Not Reportable 09/15/21 00:08 Schistocytes Not Reportable 09/15/21 00:08 Malaria parasites Not Reportable 09/15/21 00:08 Alejandro Bodies Not Reportable 09/15/21 00:08 Hem Pathologist Commnt No 09/15/21 00:08 PT 16.4 Sec. (12.2-14.9) H 09/14/21 15:35 INR 1.19 (0.87-1.13) H 09/14/21 15:35 APTT 26.6 Sec. (24.2-36.6) 09/14/21 15:35 D-Dimer > 17284 ng/mlDDU (0-234) H 09/16/21 05:49 ABG pH 7.501 (7.320-7.450) H 09/16/21 04:09 POC ABG pCO2 30.5 mmHg (32.0-48.0) L 09/16/21 04:09 ABG pCO2 42.6 mm Hg 09/14/21 16:30 POC ABG pO2 148.3 mmHg (83-108) H 09/16/21 04:09 ABG pO2 376.5 mm Hg (80.0-90.0) H 09/14/21 16:30 POC ABG HCO3 23.3 09/16/21 04:09 ABG HCO3 19.7 mmol/L (20.0-26.0) L 09/14/21 16:30 ABG O2 Saturation 99.4 (0-100) 09/16/21 04:09 ABG O2 Content 21.0 (0.0-44) 09/14/21 16:30 POC ABG Base Excess 1.1 09/16/21 04:09 ABG Base Excess -6.7 mmol/L (-2.0-3.0) L 09/14/21 16:30 ABG Hemoglobin 14.5 (12.0-17.5) 09/16/21 04:09 ABG Oxyhemoglobin 98.7 (94-98) H 09/16/21 04:09 ABG Carboxyhemoglobin 1.1 % (0.0-5.0) 09/14/21 16:30 ABG Methemoglobin 0.2 (0.0-1.5) 09/16/21 04:09 ABG Sodium 136.7 mmol/L (136.0-145.0) 09/16/21 04:09 ABG Potassium 3.3 mmol/L (3.40-4.50) L 09/16/21 04:09 ABG Chloride 104.0 mmol/L (98-107) 09/16/21 04:09 ABG Glucose 130 mg/dL (65-95) H 09/16/21 04:09 Oxyhemoglobin 97.8 % (95.0-99.0) 09/14/21 16:30 Carboxyhemoglobin 0.5 (0.5-1.5) 09/16/21 04:09 FiO2 100 % 09/14/21 16:30 FiO2 % 35.0 09/16/21 04:09 Sodium 138 mmol/L (137-145) 09/16/21 05:49 Potassium 3.8 mmol/L (3.6-5.0) D 09/16/21 05:49 Chloride 102.4 mmol/L (98-107) 09/16/21 05:49 Carbon Dioxide 20 mmol/L (22-30) L 09/16/21 05:49 Anion Gap 19 mmol/L 09/16/21 05:49 BUN 16 mg/dL (9-20) 09/16/21 05:49 Creatinine 1.0 mg/dL (0.8-1.3) 09/16/21 05:49 Estimated GFR > 60 ml/min 09/16/21 05:49 BUN/Creatinine Ratio 16 % 09/16/21 05:49 Glucose 123 mg/dL (75-100) H 09/16/21 05:49 POC Glucose 107 mg/dL (70-105) H 09/16/21 05:33 Hemoglobin A1c 5.8 % (4-6) 09/15/21 17:39 Calcium 8.0 mg/dL (8.4-10.2) L 09/16/21 05:49 Magnesium 2.30 mg/dL (1.7-2.3) 09/14/21 15:35 Ferritin 196.7 ng/mL (30.0-300.0) 09/16/21 05:49 Total Bilirubin 0.30 mg/dL (0.1-1.2) 09/16/21 05:49 Direct Bilirubin < 0.2 mg/dL (0-0.2) 09/14/21 15:35 Indirect Bilirubin 0.1 mg/dL 09/14/21 15:35 AST 210 units/L (5-40) H 09/16/21 05:49 ALT 198 units/L (7-56) H 09/16/21 05:49 Alkaline Phosphatase 77 units/L (35-129) 09/16/21 05:49 Lactate Dehydrogenase 1274 units/L (91-180) H 09/16/21 05:49 Troponin T 12.440 ng/mL (0.00-0.029) H* D 09/15/21 03:36 C-Reactive Protein 9.40 mg/dL (0.00-1.30) H 09/16/21 05:49 Total Protein 6.2 g/dL (6.3-8.2) L 09/16/21 05:49 Albumin 3.2 g/dL (3.9-5) L 09/16/21 05:49 Albumin/Globulin Ratio 1.1 % 09/16/21 05:49 Triglycerides 110 mg/dL (2-149) 09/14/21 20:33 Cholesterol 213 mg/dL (50-199) H 09/14/21 20:33 LDL Cholesterol Direct 134 mg/dL (50-130) H 09/14/21 20:33 HDL Cholesterol 67 mg/dL (40-59) H 09/14/21 20:33 Cholesterol/HDL Ratio 3.17 % 09/14/21 20:33 Arterial Blood Glucose 130 mg/dL (65-95) H 09/16/21 04:09 Arterial Blood Ionized Calcium 4.5 mg/dL (4.6-5.3) L 09/16/21 04:09 Urine Color Yellow (Yellow) 09/14/21 Unknown Urine Turbidity Slightly-cloudy (Clear) 09/14/21 Unknown Urine pH 6.0 (5.0-7.0) 09/14/21 Unknown Ur Specific [place] 1.028 (1.003-1.030) 09/14/21 Unknown Urine Protein 100 mg/dl mg/dL (Negative) 09/14/21 Unknown Urine Glucose (UA) Neg mg/dL (Negative) 09/14/21 Unknown Urine Ketones Tr mg/dL (Negative) 09/14/21 Unknown Urine Blood Neg (Negative) 09/14/21 Unknown Urine Nitrite Neg (Negative) 09/14/21 Unknown Ur Reducing Substances Not Reportable 09/14/21 Unknown Urine Bilirubin Neg (Negative) 09/14/21 Unknown Urine Ictotest Not Reportable 09/14/21 Unknown Urine Urobilinogen < 2.0 mg/dL (<2.0) 09/14/21 Unknown Ur Leukocyte Esterase Sm (Negative) 09/14/21 Unknown Urine WBC (Auto) 50.0 /HPF (0.0-6.0) H 09/14/21 Unknown Urine RBC (Auto) 12.0 /HPF (0.0-6.0) 09/14/21 Unknown U Epithel Cells (Auto) < 1.0 /HPF (0-13.0) 09/14/21 Unknown Urine Bacteria (Auto) 2+ /HPF (Negative) 09/14/21 Unknown Urine Mucus 3+ /HPF 09/14/21 Unknown Urine Yeast (Budding) Few /HPF 09/14/21 Unknown Salicylates < 0.3 mg/dL (2.8-20.0) L 09/14/21 15:35 Urine Opiates Screen Negative 09/14/21 Unknown Urine Methadone Screen Negative 09/14/21 Unknown Acetaminophen 5.0 ug/mL (10.0-30.0) L 09/14/21 15:35 Ur Barbiturates Screen Negative 09/14/21 Unknown Ur Phencyclidine Scrn Negative 09/14/21 Unknown Ur Amphetamines Screen Negative 09/14/21 Unknown U Benzodiazepines Scrn Negative 09/14/21 Unknown Urine Cocaine Screen Negative 09/14/21 Unknown U Marijuana (THC) Screen Positive 09/14/21 Unknown Drugs of Abuse Note Disclamer 09/14/21 Unknown Coronavirus (PCR) Positive (Negative) A 09/15/21 Unknown Microbiology: Microbiology 09/14/21 Unknown Urine,Clean Catch Urine Culture - Preliminary NO GROWTH AFTER 24 HOURS Alvarado/IV: Voiding Method Indwelling Catheter Active Medications - Current Medications Current Medications: Generic Name Dose Route Start Last Admin Trade Name Freq PRN Reason Stop Dose Admin Acetaminophen 650 mg 09/14/21 18:53 Acetaminophen 325 Mg Tab PO Q4H PRN Pain MILD(1-3)/Fever >100.5/BHATIA Hydrocodone Bitart/Acetaminophen 1 each 09/14/21 18:05 Hydrocodone/Acetaminophen 5-325 Mg Tab PO Q6H PRN Pain, Moderate (4-6) Lipase/Protease/Amylase 1 each 09/15/21 09:22 Lipase 10,500/Protease 25,000/Amylase 43,750 (Units) Dr Ortega FEEDTUBE PRN PRN For Clogged Feeding Tube Ascorbic Acid 500 mg 09/16/21 10:00 09/16/21 09:24 Ascorbic Acid 500 Mg Tab PO 500 mg QDAY CASSANDRA Administration Aspirin 162 mg 09/15/21 10:00 09/16/21 09:23 Aspirin 81 Mg Tab Chew FEEDTUBE 162 mg QDAY CASSANDRA Administration Atorvastatin Calcium 40 mg 09/15/21 08:13 09/15/21 23:31 Atorvastatin 40 Mg Tab FEEDTUBE 40 mg QHS CASSANDRA Administration Azithromycin 500 mg 09/15/21 17:00 Azithromycin 250 Mg/6.25 Ml Oral Liqd PO Q24HR CASSANDRA Protocol Cholecalciferol 5,000 unit 09/16/21 10:00 09/16/21 09:23 Cholecalciferol (Vit D3) 5,000 Unit Tab PO 5,000 unit DAILY CASSANDRA Administration Clopidogrel Bisulfate 75 mg 09/15/21 10:00 09/16/21 09:25 Clopidogrel 75 Mg Tab FEEDTUBE 75 mg QDAY CASSANDRA Administration Dexamethasone 6 mg 09/16/21 11:00 09/16/21 12:22 Dexamethasone 4 Mg/Ml Vial IV 09/25/21 10:01 6 mg Q24HR CASSANDRA Administration Dextrose 50 ml 09/15/21 16:49 Dextrose 50% In Water (25gm) 50 Ml Syringe IV Q30MIN PRN Hypoglycemia Protocol Famotidine 20 mg 09/15/21 10:00 09/16/21 09:25 Famotidine 20 Mg Tab FEEDTUBE 20 mg BID CASSANDRA Administration Heparin Sodium (Porcine) 5,000 unit 09/14/21 22:00 09/16/21 09:23 Heparin 5,000 Unit/1 Ml Vial SUB-Q 5,000 unit Q12HR CASSANDRA Administration Ceftriaxone Sodium 2 gm in 100 mls @ 200 mls/hr 09/15/21 17:00 09/15/21 18:51 Rocephin/Ns 2 Gm/100 Ml IV 200 mls/hr Q24H CASSANDRA Administration Protocol REMDESIVIR 200 mg/ Sodium 250 mls @ 500 mls/hr 09/16/21 11:30 09/16/21 12:21 Chloride IV 09/16/21 12:30 500 mls/hr ONCE@1130 CASSANDRA Administration REMDESIVIR 100 mg/ Sodium 250 mls @ 500 mls/hr 09/17/21 21:00 Chloride IV 09/20/21 21:29 Q24HR@2100 CASSANDRA Insulin Human Lispro 0 unit 09/15/21 18:00 09/16/21 05:55 Insulin Lispro 100 Unit/Ml SUB-Q Not Given Q6HR CASSANDRA Protocol Lisinopril 5 mg 09/15/21 10:00 09/16/21 09:24 Lisinopril 5 Mg Tab PO 5 mg QDAY CASSANDRA Administration Metoclopramide HCl 10 mg 09/14/21 18:53 Metoclopramide 10 Mg/2 Ml Inj IV Q6H PRN Nausea And Vomiting Metoprolol Tartrate 50 mg 09/15/21 08:13 09/16/21 09:23 Metoprolol Tartrate 50 Mg Tab FEEDTUBE 50 mg BID CASSANDRA Administration Nitroglycerin 0.4 mg 09/15/21 06:00 09/16/21 05:54 Nitroglycerin 0.4 Mg Patch 24hr TD 0.4 mg DAILY@0600 CASSANDRA Administration Ondansetron HCl 4 mg 09/14/21 18:53 Ondansetron 4 Mg/2 Ml Inj IV Q8H PRN Nausea And Vomiting Oxycodone/Acetaminophen 1 tab 09/14/21 18:53 Oxycodone /Acetaminophen 5-325mg Tab PO Q6H PRN Pain, Moderate (4-6) Senna 8.8 mg 09/15/21 22:00 09/15/21 22:59 Sennosides Oral Liqd 8.8 Mg/5 Ml Oral Liqd PO Not Given QHS CASSANDRA Simple Syrup 15 ml 09/15/21 09:22 Simple Syrup 15 Ml FEEDTUBE PRN PRN Hypoglycemia Simple Syrup 30 ml 09/15/21 09:22 Simple Syrup 15 Ml FEEDTUBE PRN PRN Hypoglycemia Sodium Bicarbonate 325 mg 09/15/21 09:22 Sodium Bicarbonate 325 Mg Tab FEEDTUBE PRN PRN For Clogged Feeding Tube Sodium Chloride 10 ml 09/14/21 22:00 09/16/21 09:25 Sodium Chloride 0.9% 10 Ml Flush Syringe IV 10 ml BID CASSANDRA Administration Sodium Chloride 10 ml 09/14/21 18:53 Sodium Chloride 0.9% 10 Ml Flush Syringe IV PRN PRN LINE FLUSH Sodium Chloride 50 ml 09/16/21 11:30 Sodium Chloride 0.9% 50 Ml Ivpb IV 09/20/21 21:01 Q24HR@2100 CASSANDRA Zinc Sulfate 220 mg 09/15/21 22:00 09/16/21 09:25 Zinc Sulfate 220 Mg Cap PO 220 mg BID CASSANDRA Administration Nutrition/Malnutrition Assess - Dietary Evaluation Nutrition/Malnutrition Findings: Nutrition Notes Start: 09/15/21 09:13 Freq: Status: Active Protocol: Document 09/15/21 09:13 NITIN (Rec: 09/15/21 09:22 [id number]) Nutrition Notes Need for Assessment generated from: MD Order Initial or Follow up Assessment Other Pertinent Diagnosis STEMI, cardiac arrest, hypokalemia Current Diet No diet Labs/Tests K 5.1 BG 182 09/14: Cholesterol 213 LDL 134 HLD 67 Pertinent Medications Propofol at 13.32 ml/hr (352 kcal) 09/14: 40 mEq KCl Height 5 ft 7 in Weight 74 kg [place] Body Weight (kg) 67.27 BMI 25.5 Weight Status Appropriate Subjective/Other Information MD consult for TF. Pt on vent. NGT to LIS at this time. Burn Absent Trauma Absent GI Symptoms Vomiting,Diarrhea Current % PO Negligible Minimum of two criteria No #1 Nutrition Diagnosis Inadequate oral intake Etiology cardiac arrest As Evidenced by Signs and Symptoms pt on vent and unable to consume PO, NGT to LIS Is patient on ventilator? Yes Is Patient Ambulatory and/or Out of Bed No REE-([facility]-confined to bed) 1921.500 Calculation Used for Recommendations [facility] Additional Notes Protein: (1.2-2/kg) 89-148g Fluid: 1 ml/kcal or per MD Nutrition Intervention Change Diet Order: Start TF as medically able Nutrition Support: Vital AF 1.2 at 65 ml/hr Flush 100 ml q4h or per MD Kcal 1,872 Protein (gm) 117 Fluid (mL) 1,265 Goal #1 Start TF Anticipated Discharge Needs: Unable to determine at this time Follow-Up By: 09/17/21 Additional Comments F/U: TF start
--- NOTE | 2021-09-16 13:03 | Progress Note ---
Assessment and Plan - Patient Problems (1) STEMI (ST elevation myocardial infarction) Current Visit: Yes Status: Acute Qualifiers: Involved coronary artery: right coronary artery Qualified Code(s): I21.11 - ST elevation (STEMI) myocardial infarction involving right coronary artery Plan to address problem: Status post acute anterolateral wall myocardial infarction, complicated by ventricular fibrillation arrest in the emergency room. The patient underwent successful primary angioplasty and stenting of 100% proximal LAD occlusion. Subsequent echocardiogram shows a severe dilated cardiomyopathy with ejection fraction 20% and hypo to akinesis of the anterior lateral wall and apex. In addition to guideline directed medical therapy, we will order LifeVest monitoring on discharge. Subjective Date of service: 09/16/21 Interval history: Patient reportedly extubated himself this morning, but is breathing comfortably off the vent in no acute distress. compliance monitor shows a stable sinus rhythm at 98. It will be recalled that in addition to his acute anterolateral wall myocardial infarction necessitating primary angioplasty and stenting of proximal LAD occlusion, he also tested positive for COVID-19. Echocardiogram today shows a severe dilated cardiomyopathy, left ventricular ejection fraction 20%, with hypo to akinesis of the large segment of the anterior wall and apex. Objective Vital Signs Temp Pulse Pulse Resp BP Pulse Ox 09/16/21 11:45 94 H 25 H 138/88 98 09/16/21 11:30 99 H 13 122/83 99 09/16/21 11:15 97 H 17 123/93 100 09/16/21 11:00 95 H 15 115/85 09/16/21 10:45 96 H 12 136/82 99 09/16/21 10:30 97 H 17 136/82 100 09/16/21 10:15 94 H 16 121/85 100 09/16/21 10:00 100 H 24 119/83 100 09/16/21 09:45 91 H 23 123/82 99 09/16/21 09:30 97 H 15 120/84 100 09/16/21 09:27 94 09/16/21 09:24 96 H 128/82 09/16/21 09:23 100 H 128/82 09/16/21 09:15 97 H 18 128/82 100 09/16/21 09:00 95 H 18 114/77 98 09/16/21 08:45 103 H 22 99/62 99 09/16/21 08:31 103 H 15 122/74 99 09/16/21 08:30 98 F 09/16/21 08:15 101 H 15 113/65 98 09/16/21 08:00 99 H 101 H 19 114/75 97 09/16/21 07:45 97 H 14 121/73 97 09/16/21 07:30 106 H 11 L 116/74 95 09/16/21 07:15 118 H 25 H 135/78 92 09/16/21 07:00 109 H 11 L 122/76 99 09/16/21 06:45 117 H 16 131/78 94 09/16/21 06:31 123 H 19 118/77 100 09/16/21 06:15 119 H 21 149/92 100 09/16/21 06:00 111 H 12 149/92 100 09/16/21 05:54 101 H 135/90 09/16/21 05:45 101 H 16 135/90 100 09/16/21 05:30 89 16 140/93 100 09/16/21 05:15 89 16 141/92 100 09/16/21 05:00 88 16 141/91 100 09/16/21 04:45 99 H 16 135/88 100 09/16/21 04:30 100 H 16 139/91 100 09/16/21 04:15 89 16 141/95 100 09/16/21 04:00 95 H 83 16 138/90 100 09/16/21 03:45 89 16 139/93 100 09/16/21 03:30 93 H 16 132/89 100 09/16/21 03:20 101.8 F H 09/16/21 03:15 93 H 16 132/90 100 09/16/21 03:00 94 H 16 133/89 100 09/16/21 02:45 95 H 16 125/84 100 09/16/21 02:30 96 H 16 127/84 100 09/16/21 02:15 98 H 16 125/87 09/16/21 02:00 96 H 16 133/92 100 09/16/21 01:45 96 H 16 131/89 100 09/16/21 01:30 102 H 16 124/82 100 09/16/21 01:15 97 H 16 131/88 100 09/16/21 01:00 91 H 16 133/90 100 09/16/21 00:45 94 H 16 139/88 100 01/03/22 00:30 92 H 16 137/96 100 09/16/21 00:15 89 16 143/99 100 09/16/21 00:00 98.4 F 90 83 16 145/97 100 09/15/21 23:45 89 16 142/101 100 09/15/21 23:34 89 154/102 100 09/15/21 23:33 88 16 154/102 100 09/15/21 23:30 88 16 154/102 09/15/21 23:15 98 H 14 143/98 100 09/15/21 23:04 91 H 138/96 09/15/21 23:00 91 H 16 138/96 100 09/15/21 22:45 93 H 16 141/95 100 09/15/21 22:30 94 H 16 144/96 93 09/15/21 22:15 97 H 16 135/99 100 09/15/21 22:00 102 H 16 137/101 100 09/15/21 21:45 100 H 12 135/95 100 09/15/21 21:30 104 H 11 L 139/93 09/15/21 21:15 92 H 16 133/89 100 09/15/21 21:00 91 H 16 129/89 100 09/15/21 20:45 88 16 128/88 100 09/15/21 20:30 83 16 141/95 100 09/15/21 20:15 86 16 143/96 100 09/15/21 20:00 102 H 83 13 146/98 100 09/15/21 19:59 110 H 131/89 100 09/15/21 19:54 98.7 F 09/15/21 19:45 94 H 17 131/89 100 09/15/21 19:30 89 16 125/88 100 09/15/21 19:15 82 16 132/93 100 09/15/21 19:00 84 16 131/89 100 09/15/21 18:45 95 H 16 131/90 100 09/15/21 18:31 84 16 131/90 100 09/15/21 18:15 95 H 13 131/90 99 09/15/21 18:01 85 16 131/90 100 09/15/21 17:45 84 16 131/90 100 09/15/21 17:30 92 H 9 L 131/90 09/15/21 17:15 135/94 100 09/15/21 17:00 86 16 126/88 100 09/15/21 16:45 87 16 130/92 100 09/15/21 16:30 85 16 126/90 99 09/15/21 16:15 87 16 125/88 09/15/21 16:00 88 89 16 126/89 100 09/15/21 15:45 87 16 127/90 100 09/15/21 15:30 97 H 17 130/94 100 09/15/21 15:15 90 16 112/85 100 09/15/21 15:06 100 09/15/21 15:00 81 16 128/93 100 09/15/21 14:45 85 16 127/94 100 09/15/21 14:30 83 16 124/89 100 09/15/21 14:15 84 16 125/90 100 09/15/21 14:00 83 16 127/93 09/15/21 13:45 81 16 129/95 100 09/15/21 13:30 94 H 16 135/98 09/15/21 13:15 83 16 126/92 100 - Physical Examination General: No Apparent Distress HEENT: Positive: Other Neck: Positive: neck supple Cardiac: Positive: Reg Rate and Rhythm Lungs: Positive: Decreased Breath Sounds Neuro: Positive: Grossly Intact Abdomen: Positive: Unremarkable, Soft Skin: Positive: Clear Extremities: Present: normal. Absent: edema - Labs and Meds Cardiac Enzymes 09/15/21 09/16/21 Range/Units 17:39 05:49 AST 210 H (5-40) units/L Lactate Dehydrogenase 1175 H 1274 H (91-180) units/L CBC 09/16/21 Range/Units 05:49 WBC 14.2 H (4.5-11.0) K/mm3 RBC 4.35 (3.65-5.03) M/mm3 Hgb 13.3 (11.8-15.2) gm/dl Hct 41.2 D (35.5-45.6) % Plt Count 149 (140-440) K/mm3 Comprehensive Metabolic Panel 09/16/21 Range/Units 05:49 Sodium 138 (137-145) mmol/L Potassium 3.8 D (3.6-5.0) mmol/L Chloride 102.4 (98-107) mmol/L Carbon Dioxide 20 L (22-30) mmol/L BUN 16 (9-20) mg/dL Creatinine 1.0 (0.8-1.3) mg/dL Glucose 123 H (75-100) mg/dL Calcium 8.0 L (8.4-10.2) mg/dL AST 210 H (5-40) units/L ALT 198 H (7-56) units/L Alkaline Phosphatase 77 (35-129) units/L Total Protein 6.2 L (6.3-8.2) g/dL Albumin 3.2 L (3.9-5) g/dL - Imaging and Cardiology EKG: report reviewed (ST elevayion )
--- NOTE | 2021-09-16 14:49 | Ultrasound Report ---
ULTRASOUND RENAL INDICATION / CLINICAL INFORMATION: jorge. COMPARISON: CT abdomen/pelvis performed 09/15/21. FINDINGS: RIGHT KIDNEY: Length = 10.3 cm. - Echogenicity: Normal. - Cortical Thickness: Normal. - Hydronephrosis: None. - Cyst / Mass: None. - Stones: None seen. LEFT KIDNEY: Length = 10.0 cm. - Echogenicity: Normal. - Cortical Thickness: Normal. - Hydronephrosis: None. - Cyst / Mass: None. - Stones: None seen. URINARY BLADDER: Collapsed around a Alvarado catheter. FREE FLUID: None. ADDITIONAL FINDINGS: None. IMPRESSION: 1. No significant sonographic abnormality. Scribed by: Mira Figueroa RDMS, RVT Scribed: 09/16/2021 1:01 PM I have reviewed the images, agree with this report, and edited this report as needed. Signer Name: Bernardo Bajwa MD Signed: 09/16/2021 2:44 PM Workstation Name: [id number]
[2021-09-16 16:55] LABS: Creatinine,Urine 187.8 mg/dL (0.1-20.0)
--- NOTE | 2021-09-16 18:55 | Cat Scan Report ---
NONENHANCED CT SCAN OF THE HEAD: INDICATION / CLINICAL INFORMATION: 41 years Male; Acute change in mental status. TECHNIQUE: Routine CT head without contrast. All CT scans at this location are performed using CT dos e reduction for ALARA by means of automated exposure control. COMPARISON: CT scan of the head from 09/15/2021 FINDINGS: BRAIN / INTRACRANIAL CONTENTS: No acute hemorrhage, mass effect, midline shift, hydrocephalus, or acu te, large territorial infarct. No chronic infarct or focal atrophy. Normal brain volume and ventricul ar/sulcal size for age. No significant white matter abnormality. CRANIOCERVICAL JUNCTION: No significant abnormality. ORBITS: No significant abnormality of visualized orbits. SINUSES / MASTOIDS: Fluid accumulation in the sphenoid sinus bilaterally; mucosal thickening in some of the ethmoid air cells ADDITIONAL FINDINGS: None. IMPRESSION: No acute focal parenchymal lesion in the brain Signer Name: Yogesh Vail MD Signed: 09/16/2021 6:51 PM Workstation Name: [id number]
--- NOTE | 2021-09-16 19:30 | Vascular Lab Report ---
DUPLEX DOPPLER LOWER EXTREMITY VEINS, BILATERAL INDICATION / CLINICAL INFORMATION: R/O DVT. Leg swelling TECHNIQUE: Duplex doppler imaging was performed through the veins of both lower extremities using venous rylan rosalba and other maneuvers. COMPARISON: None available. FINDINGS: RIGHT COMMON FEMORAL VEIN: Negative. RIGHT FEMORAL VEIN: Negative. RIGHT POPLITEAL VEIN: Negative. RIGHT CALF VEINS: Negative. LEFT COMMON FEMORAL VEIN: Negative. LEFT FEMORAL VEIN: Negative. LEFT POPLITEAL VEIN: Negative. LEFT CALF VEINS: Negative. ADDITIONAL FINDINGS: None. IMPRESSION: 1. No sonographic evidence for DVT in either lower extremity. Signer Name: Mati Carrero MD Signed: 09/16/2021 7:26 PM Workstation Name: [id number]
[2021-09-16] MEDS: cefTRIAXone/NS 2 GM/100 ML 2 GM/100 ML BAG IV SCH (20:41)
[2021-09-16] MEDS: SENNOSIDES ORAL LIQD 8.8 MG/5 ML ORAL LIQD PO SCH (22:47)
[2021-09-17] MEDS: INSULIN LISPRO 100 UNIT/ML SUB-Q SCH ×4 (01:30→19:56)
[2021-09-17 05:25] LABS: Hematocrit 37.4 % (35.5-45.6); Hemoglobin 12.4 gm/dl (11.8-15.2); Mean Corpuscular HGB Conc 33 % (32-34); Mean Corpuscular Volume 94 fl (84-94); Platelet Count 144 K/mm3 (140-440); Red Blood Count 3.99 M/mm3 (3.65-5.03); Red Cell Distribution Width 12.5 % (13.2-15.2)
[2021-09-17 05:43] LABS: Alanine Aminotransferase 157 units/L (7-56); Albumin 3.5 g/dL (3.9-5); BUN/Creatinine Ratio 24; Blood Urea Nitrogen 22 mg/dL (9-20); Calcium 8.3 mg/dL (8.4-10.2); Hemolysis Index 3
[2021-09-17] MEDS: NITROGLYCERIN 0.4 MG PATCH 24HR TD SCH (06:30)
[2021-09-17] MEDS: FREE WATER PO SCH ×4 (06:55→19:56)
[2021-09-17] MEDS: IPRATROPIUM/ALBUTEROL SULFATE 3 ML AMPUL.NEB IH SCH (08:09)
[2021-09-17] MEDS: POTASSIUM CHLORIDE 10 MEQ 10 MEQ/100 ML BAG IV SCH ×4 (09:21→14:23)
[2021-09-17] MEDS: dexAMETHasone 4 MG/ML VIAL IV SCH (09:21)
[2021-09-17] MEDS: ASPIRIN 81 MG TAB CHEW FEEDTUBE SCH (09:21)
[2021-09-17] MEDS: CHOLECALCIFEROL (VIT D3) 5,000 UNIT TAB PO SCH (09:22)
[2021-09-17] MEDS: METOPROLOL TARTRATE 50 MG TAB FEEDTUBE SCH ×2 (09:22→21:37)
[2021-09-17] MEDS: FAMOTIDINE 20 MG TAB FEEDTUBE SCH ×2 (09:22→21:37)
[2021-09-17] MEDS: ASCORBIC ACID 500 MG TAB PO SCH (09:22)
[2021-09-17] MEDS: HEPARIN 5,000 UNIT/1 ML VIAL SUB-Q SCH ×2 (09:22→21:36)
[2021-09-17] MEDS: CLOPIDOGREL 75 MG TAB FEEDTUBE SCH (09:22)
[2021-09-17] MEDS: LISINOPRIL 5 MG TAB PO SCH (09:22)
[2021-09-17] MEDS: ZINC SULFATE 220 MG CAP PO SCH ×2 (09:22→21:38)
--- NOTE | 2021-09-17 11:56 | Progress Note ---
Assessment and Plan - Patient Problems (1) STEMI (ST elevation myocardial infarction) Current Visit: Yes Status: Acute Qualifiers: Involved coronary artery: right coronary artery Qualified Code(s): I21.11 - ST elevation (STEMI) myocardial infarction involving right coronary artery Plan to address problem: Status post acute anterolateral wall myocardial infarction, complicated by ventricular fibrillation arrest in the emergency room. The patient underwent successful primary angioplasty and stenting of 100% proximal LAD occlusion. Subsequent echocardiogram shows a severe dilated cardiomyopathy with ejection fraction 20% and hypo to akinesis of the anterior lateral wall and apex. In addition to guideline directed medical therapy, we will order LifeVest monitoring on discharge. Subjective Date of service: 09/17/21 Interval history: Patient is awake and alert and comfortably no acute distress. He has a normal sinus rhythm at 89, blood pressure 126 systolic. Objective Vital Signs Temp Pulse Pulse Resp BP Pulse Ox 09/17/21 11:37 98.1 F 09/17/21 10:45 90 18 129/93 97 09/17/21 10:30 81 13 129/93 97 09/17/21 10:15 77 14 119/83 98 09/17/21 10:01 86 19 137/91 98 09/17/21 09:45 78 13 113/76 97 09/17/21 09:30 84 15 102/78 97 09/17/21 09:15 87 15 107/69 97 09/17/21 09:00 76 20 107/69 98 09/17/21 08:45 91 H 19 114/70 97 09/17/21 08:30 84 22 114/70 09/17/21 08:15 81 15 116/75 98 09/17/21 08:06 98 09/17/21 08:00 80 15 122/74 96 09/17/21 07:45 81 16 118/74 96 09/17/21 07:30 93 H 27 H 118/74 100 09/17/21 07:21 98.6 F 09/17/21 07:15 87 18 113/77 97 09/17/21 07:00 85 22 113/77 96 09/17/21 06:45 94 H 19 128/81 95 09/17/21 06:30 82 24 118/73 97 09/17/21 06:15 88 115/72 96 09/17/21 06:01 89 122/71 09/17/21 05:45 96 H 25 H 110/71 97 09/17/21 05:30 90 23 110/71 09/17/21 05:15 88 22 102/73 99 09/17/21 05:00 85 22 114/74 96 09/17/21 04:45 103 H 108/69 96 09/17/21 04:30 84 108/69 97 09/17/21 04:15 79 120/72 97 09/17/21 04:00 98.8 F 88 101 H 16 114/84 97 09/17/21 03:45 83 124/87 97 09/17/21 03:30 81 124/87 97 09/17/21 03:15 87 117/73 97 09/17/21 03:01 23 132/81 09/17/21 02:45 79 32 H 120/83 97 09/17/21 02:31 83 27 H 120/83 98 09/17/21 02:15 79 25 H 116/75 09/17/21 02:00 81 22 113/70 94 09/17/21 01:45 100 H 22 105/59 96 09/17/21 01:30 81 14 105/59 96 09/17/21 01:15 85 27 H 123/71 96 09/17/21 01:01 91 H 14 117/66 97 09/17/21 00:45 93 H 21 108/62 96 09/17/21 00:30 88 21 110/72 97 09/17/21 00:15 95 H 15 103/57 94 09/17/21 00:01 90 11 L 114/69 88 09/17/21 00:00 101 H 16 100 09/16/21 23:45 91 H 20 110/59 92 09/16/21 23:30 93 H 22 110/59 94 09/16/21 23:15 90 24 105/63 96 09/16/21 23:01 104 H 19 130/61 96 09/16/21 22:45 93 H 22 115/70 09/16/21 22:39 106 H 115/70 09/16/21 22:31 98 H 26 H 115/82 09/16/21 22:15 86 16 115/82 09/16/21 22:00 86 13 116/72 09/16/21 21:45 95 H 16 130/86 09/16/21 21:31 104 H 27 H 130/86 09/16/21 21:29 93 09/16/21 21:15 98 H 19 117/74 09/16/21 21:00 98 H 13 116/70 09/16/21 20:45 115 H 15 120/75 09/16/21 20:31 103 H 15 120/75 09/16/21 20:15 110 H 27 H 113/49 97 09/16/21 20:03 85 13 113/49 98 09/16/21 20:01 84 16 113/49 98 09/16/21 20:00 101 H 16 100 09/16/21 19:45 82 16 98/74 98 09/16/21 19:31 87 15 107/91 97 09/16/21 19:15 95 H 19 93/73 98 09/16/21 19:01 23 92/71 97 09/16/21 18:45 102 H 12 130/64 98 09/16/21 18:41 98 H 130/64 09/16/21 18:15 87 20 124/74 97 09/16/21 18:01 89 15 124/74 99 09/16/21 17:45 90 17 82/48 98 09/16/21 17:31 94 H 16 116/72 97 09/16/21 17:15 92 H 16 116/72 96 09/16/21 17:00 77 19 116/72 97 09/16/21 16:45 89 24 132/101 100 09/16/21 16:30 91 H 20 132/101 100 09/16/21 16:15 96 H 16 125/93 99 09/16/21 16:00 99.5 F 82 101 H 15 126/81 99 09/16/21 15:45 95 H 16 120/98 97 09/16/21 15:30 89 20 116/77 97 09/16/21 15:15 86 17 153/84 99 09/16/21 15:00 82 14 153/84 99 09/16/21 14:45 85 15 126/72 98 09/16/21 14:30 97 H 14 126/72 99 09/16/21 14:15 96 H 13 115/71 98 09/16/21 14:00 89 16 115/71 97 09/16/21 13:45 87 18 115/71 98 09/16/21 13:30 95 H 18 115/71 99 09/16/21 13:15 87 12 115/71 98 09/16/21 13:01 88 19 115/71 99 09/16/21 12:45 96 H 21 123/78 97 09/16/21 12:31 97 H 13 123/78 96 09/16/21 12:15 94 H 18 154/92 98 09/16/21 12:00 99.2 F 96 H 101 H 30 H 143/92 97 - Physical Examination General: No Apparent Distress HEENT: Positive: Other Neck: Positive: neck supple Cardiac: Positive: Reg Rate and Rhythm Lungs: Positive: Decreased Breath Sounds Neuro: Positive: Grossly Intact Abdomen: Positive: Unremarkable, Soft Skin: Positive: Clear Extremities: Present: normal. Absent: edema - Labs and Meds Cardiac Enzymes 09/17/21 Range/Units 04:24 AST 208 H (5-40) units/L CBC 09/17/21 Range/Units 04:24 WBC 16.2 H (4.5-11.0) K/mm3 RBC 3.99 (3.65-5.03) M/mm3 Hgb 12.4 (11.8-15.2) gm/dl Hct 37.4 (35.5-45.6) % Plt Count 144 (140-440) K/mm3 Comprehensive Metabolic Panel 09/17/21 Range/Units 04:24 Sodium 145 D (137-145) mmol/L Potassium 3.3 L (3.6-5.0) mmol/L Chloride 105.4 (98-107) mmol/L Carbon Dioxide 26 (22-30) mmol/L BUN 22 H (9-20) mg/dL Creatinine 0.9 (0.8-1.3) mg/dL Glucose 122 H (75-100) mg/dL Calcium 8.3 L (8.4-10.2) mg/dL AST 208 H (5-40) units/L ALT 157 H (7-56) units/L Alkaline Phosphatase 68 (35-129) units/L Total Protein 6.6 (6.3-8.2) g/dL Albumin 3.5 L (3.9-5) g/dL - Imaging and Cardiology EKG: report reviewed (ST elevayion )
--- NOTE | 2021-09-17 12:01 | Event Note ---
Date: 09/17/21 Patient stable from CC standpoint. ON room air with no pulm issues. IMS to work up neurologic deficits if any but none seen of concern with me this am. Will sign off.
--- NOTE | 2021-09-17 12:01 | Progress Note ---
<RADHA TAYLOR - Last Filed: 09/17/21 21:46> Assessment and Plan Assessment and plan: This is a 41-year-old male admitted with post cardiac arrest with ROSC 2/2 STEMI s/p emergent PCI in [facility] Hospital Course to Date: This is a 41-year-old male without significant medical history who presented to the emergency department on 09/14/2021 in cardiac arrest after being noted that he started "jerking and his eyes rolled back" in the backseat of his car. She pulled into the ambulance bay and an EMS personnel in the [place] started CPR and found the patient with agonal breathing. ACLS was started in the emergency department and he was noted to be in V. fib, receivedseveral shocks and was given amiodarone and lidocaine. He was also intubated during this time and received a femoral line. Work-up in the emergency department included ECG which showed hyperacute T waves and cardiology was consulted. Patient was taken emergently to the cardiac [facility] where it was noted that he had a complete o cclusion of the LAD and had a successful angioplasty. He also had severe hypokalemia which was treated, elevated D-dimer, metabolic acidosis and acute kidney injury. Patient was admitted to the hospitalist service s/p cardiac arrest, STEMI, acute kidney injury, acute hypoxic respiratory failure with consults to cardiology and [facility]. 09/15: Patient had a CTA and CT head today, remains on the ventilator. Continues amiodarone and heparin drip. Received 1 L LR bolus for ALLISON. Started on bolus feeding. COVID-19 PCR positive. 09/16: Patient self-extubated this am, now stable on 2LNC. Patient with periods of disorientation, otherwise awake and alert. Rafiq temp overnight, orders placed for blood cultures. Continue current IV ABx, ID consult pending. Given worsening Ddimer will also r/o DVT, BLE doppler ordered.. D/w CCM patient is stable for transfer to the floor. 09/17: Patient is on RA this am, fully AAO. CT head noted, with no acute abnormality. Pending speech swallow eval. Low K repleted, repeat labs in the am. Assessment and Plan #Neuro:Anxiety -Fully AAO this am -CT head shows no acute abnormality -Worsen mentation yesterday, repeat CT head was unchanged -Avoid benzodiazepine to reduce the possibility of delirium -Reorientation as needed -Prn analgesia for CPOT greater than 3 -Maintenance of sleep-wake cycle #Cardiac:Severe Cardiomyopathy #STEMI s/p PCI #s/p VFib arrest with ROSC -Presented with vfib arrest, shocked mulitple times before ROSC acheived -09/14 s/p Emergent Caridac Cath which showed 100% occlusion of the LAD X2 Stents -S/p Amio gtt -SR to ST on the monitor this am -09/14 Echocardiogram- EF 20% with severe dilated cardiomyopathy. -Cardiology on consult, appreciated recommendations -Cardio rec medical management with LifeVest monitoring on discharge. -Continue blood pressure monitor per protocol -Maintain MAP above 65 -Continue Aspirin, plavix, & lipitor -Continue AC- Heparin SubQ -Lipid panel noted in chart #Respiratory: Acute respiratory failure #COVID Pneumonia -Intubated on 09/14 during code -Self-Extubated this am 09/16 -On RA this am, SPO2 above 95% -O2 supplementation as needed -CCM consulted, appreciate recommendations -VAP bundle addressed -Aspiration precaution HOB above 30 -Continue O2 supplementation and SPO2 monitoring for SPO2 goal above 95% #GI: Transaminitis -Elevated LFTs most likely reactive post code -CTA chest shows diffuse thickening throughout the colon and fluid surrounding the gallbladder fossa and gallbladder -Continue to trend LFTs -Patient failed bedside swallow eval -Speech swallow eval pending -Continue PPI-Pepcid -BR: senna #: Acute kidney injury secondary likely ATN #Hyperkalemia-resolved #Metabolic acidosis -Most likely due to code, hypoperfusion -Src downtrending -Strict intake and output -Avoid nephrotoxic medications; Renally dose medications -Alvarado in place -Monitor and replace electrolytes as needed #ID:COVID Pneumonia #Leukocytosis -Patient COVID swab came back positive -CTA chest shows bilateral lower lobe infiltrates with opacities -Leukocytosis downtrending -Patient afebrile overnight -Blood culture pending -Infectious disease consulted -Continue IV Abx per ID -Procal pending -Per ID if procalcitonin <0.25 ng/mL stop antibiotics. If not okay to discharge with Omnicef 300 mg every 12 hours to complete a full course. -Droplet/contact precautions -Continue IV Steroids -Vitamin C, vitamin D, zinc -Trend COVID-19 inflammatory markers -Monitor WBC and temperature curve -Trend CBC #Endo:Glycemic Control -Continue SSI Q6hrs wile NPO/TF -Avoid Hypoglycemia #DVT Prophylaxis -Continue AC- Heparin SubQ -SCDs to bilateral lower extremities while in bed The high probability of a clinically significant, sudden or life threatening deterioration of the [multi] system(s) required my full and direct attention, intervention and personal management. The aggregate critical care time was [60] minutes. This time is in addition to time spent performing reported procedures but includes the following: [x] Data Review and interpretation [x] Patient assessment and monitoring of vital signs [x] Documentation [x] Medication orders and management Disposition Plan: ICU Total Time Spent with Patient (Minutes): 60 History Interval history: Patient seen and examined at the bedside. Fully AAO this am, on RA SPO2 above 95%. CT head yesterday due to worsening mentation which improved this morning. Patient c/o of being hungry and thirsty, pending speech eval this am Hospitalist Physical - Constitutional Vitals: Temp Pulse Resp BP Pulse Ox 98.1 F 90 18 129/93 97 09/17/21 11:37 09/17/21 10:45 09/17/21 10:45 09/17/21 10:45 09/17/21 10:45 General appearance: Present: no acute distress, well-nourished - EENT Eyes: Present: PERRL ENT: hearing intact, clear oral mucosa - Neck Neck: Present: normal ROM - Respiratory Respiratory effort: normal Respiratory: bilateral: diminished - Cardiovascular Rhythm: regular Heart Sounds: Present: S1 & S2 - Extremities Extremities: no ischemia, pulses intact, pulses symmetrical Peripheral Pulses: within normal limits - Abdominal General gastrointestinal: soft, non-tender, normal bowel sounds - Integumentary Integumentary: Present: clear, warm, dry - Psychiatric Psychiatric: appropriate mood/affect, cooperative - Neurologic Neurologic: CNII-XII intact, moves all extremities - Allied Health Allied health notes reviewed: nursing HEART Score - HEART Score Age: < 45 Risk factors: 1-2 risk factors Troponin: Troponin T 12.440 ng/mL (0.00-0.029) H* D 09/15/21 03:36 Troponin: 1-3x normal limit - Critical Actions Critical Actions: >7 pts:50-65% risk of adverse cardiac event. Early invasive measures Results - Labs CBC & Chem 7: 09/17/21 04:24 09/17/21 04:24 Labs: Laboratory Last Values WBC 16.2 K/mm3 (4.5-11.0) H 09/17/21 04:24 RBC 3.99 M/mm3 (3.65-5.03) 09/17/21 04:24 Hgb 12.4 gm/dl (11.8-15.2) 09/17/21 04:24 Hct 37.4 % (35.5-45.6) 09/17/21 04:24 MCV 94 fl (84-94) 09/17/21 04:24 MCH 31 pg (28-32) 09/17/21 04:24 MCHC 33 % (32-34) 09/17/21 04:24 RDW 12.5 % (13.2-15.2) L 09/17/21 04:24 Plt Count 144 K/mm3 (140-440) 09/17/21 04:24 Lymph % (Auto) 46.5 % (13.4-35.0) H 09/14/21 15:35 [place] % (Auto) 6.6 % (0.0-7.3) 09/14/21 15:35 Eos % (Auto) 1.1 % (0.0-4.3) 09/14/21 15:35 Baso % (Auto) 0.6 % (0.0-1.8) 09/14/21 15:35 Lymph # (Auto) 2.9 K/mm3 (1.2-5.4) 09/14/21 15:35 [place] # (Auto) 0.4 K/mm3 (0.0-0.8) 09/14/21 15:35 Eos # (Auto) 0.1 K/mm3 (0.0-0.4) 09/14/21 15:35 Baso # (Auto) 0.0 K/mm3 (0.0-0.1) 09/14/21 15:35 Add Manual Diff Complete 09/15/21 00:08 Total Counted 100 09/15/21 00:08 Seg Neutrophils % 45.2 % (40.0-70.0) 09/14/21 15:35 Seg Neuts % (Manual) 89.0 % (40.0-70.0) H 09/15/21 00:08 Band Neutrophils % 3.0 % 09/15/21 00:08 Lymphocytes % (Manual) 3.0 % (13.4-35.0) L 09/15/21 00:08 Monocytes % (Manual) 5.0 % (0.0-7.3) 09/15/21 00:08 Nucleated RBC % Not Reportable 09/15/21 00:08 Seg Neutrophils # 2.8 K/mm3 (1.8-7.7) 09/14/21 15:35 Seg Neutrophils # Man 14.4 K/mm3 (1.8-7.7) H 09/15/21 00:08 Band Neutrophils # 0.5 K/mm3 09/15/21 00:08 Lymphocytes # (Manual) 0.5 K/mm3 (1.2-5.4) L 09/15/21 00:08 Abs React Lymphs (Man) 0.0 K/mm3 09/15/21 00:08 Monocytes # (Manual) 0.8 K/mm3 (0.0-0.8) 09/15/21 00:08 Eosinophils # (Manual) 0.0 K/mm3 (0.0-0.4) 09/15/21 00:08 Basophils # (Manual) 0.0 K/mm3 (0.0-0.1) 09/15/21 00:08 Metamyelocytes # 0.0 K/mm3 09/15/21 00:08 Myelocytes # 0.0 K/mm3 09/15/21 00:08 Promyelocytes # 0.0 K/mm3 09/15/21 00:08 Blast Cells # 0.0 K/mm3 09/15/21 00:08 WBC Morphology Not Reportable 09/15/21 00:08 Hypersegmented Neuts Not Reportable 09/15/21 00:08 Hyposegmented Neuts Not Reportable 09/15/21 00:08 Hypogranular Neuts Not Reportable 09/15/21 00:08 Smudge Cells Not Reportable 09/15/21 00:08 Toxic Granulation Not Reportable 09/15/21 00:08 Toxic Vacuolation Not Reportable 09/15/21 00:08 Dohle Bodies Not Reportable 09/15/21 00:08 Pelger-Huet Anomaly Not Reportable 09/15/21 00:08 Sarwat Rods Not Reportable 09/15/21 00:08 Platelet Estimate Consistent w auto 09/15/21 00:08 Clumped Platelets Not Reportable 09/15/21 00:08 Plt Clumps, EDTA Not Reportable 09/15/21 00:08 Large Platelets Not Reportable 09/15/21 00:08 Giant Platelets Not Reportable 09/15/21 00:08 Platelet Satelliting Not Reportable 09/15/21 00:08 Plt Morphology Comment Not Reportable 09/15/21 00:08 RBC Morphology Normal 09/15/21 00:08 Dimorphic RBCs Not Reportable 09/15/21 00:08 Polychromasia Not Reportable 09/15/21 00:08 Hypochromasia Not Reportable 09/15/21 00:08 Poikilocytosis Not Reportable 09/15/21 00:08 Anisocytosis Not Reportable 09/15/21 00:08 Microcytosis Not Reportable 09/15/21 00:08 Macrocytosis Not Reportable 09/15/21 00:08 Spherocytes Not Reportable 09/15/21 00:08 Pappenheimer Bodies Not Reportable 09/15/21 00:08 Sickle Cells Not Reportable 09/15/21 00:08 Target Cells Not Reportable 09/15/21 00:08 Tear Drop Cells Not Reportable 09/15/21 00:08 Ovalocytes Not Reportable 09/15/21 00:08 Helmet Cells Not Reportable 09/15/21 00:08 [place] Bodies Not Reportable 09/15/21 00:08 [place] Rings Not Reportable 09/15/21 00:08 Chantal Cells Not Reportable 09/15/21 00:08 Bite Cells Not Reportable 09/15/21 00:08 Crenated Cell Not Reportable 09/15/21 00:08 Elliptocytes Not Reportable 09/15/21 00:08 Acanthocytes (Spur) Not Reportable 09/15/21 00:08 Rouleaux Not Reportable 09/15/21 00:08 Hemoglobin C Crystals Not Reportable 09/15/21 00:08 Schistocytes Not Reportable 09/15/21 00:08 Malaria parasites Not Reportable 09/15/21 00:08 Alejandro Bodies Not Reportable 09/15/21 00:08 Hem Pathologist Commnt No 09/15/21 00:08 PT 16.4 Sec. (12.2-14.9) H 09/14/21 15:35 INR 1.19 (0.87-1.13) H 09/14/21 15:35 APTT 26.6 Sec. (24.2-36.6) 09/14/21 15:35 D-Dimer > 67449 ng/mlDDU (0-234) H 09/16/21 05:49 ABG pH 7.501 (7.320-7.450) H 09/16/21 04:09 POC ABG pCO2 30.5 mmHg (32.0-48.0) L 09/16/21 04:09 ABG pCO2 42.6 mm Hg 09/14/21 16:30 POC ABG pO2 148.3 mmHg (83-108) H 09/16/21 04:09 ABG pO2 376.5 mm Hg (80.0-90.0) H 09/14/21 16:30 POC ABG HCO3 23.3 09/16/21 04:09 ABG HCO3 19.7 mmol/L (20.0-26.0) L 09/14/21 16:30 ABG O2 Saturation 99.4 (0-100) 09/16/21 04:09 ABG O2 Content 21.0 (0.0-44) 09/14/21 16:30 POC ABG Base Excess 1.1 09/16/21 04:09 ABG Base Excess -6.7 mmol/L (-2.0-3.0) L 09/14/21 16:30 ABG Hemoglobin 14.5 (12.0-17.5) 09/16/21 04:09 ABG Oxyhemoglobin 98.7 (94-98) H 09/16/21 04:09 ABG Carboxyhemoglobin 1.1 % (0.0-5.0) 09/14/21 16:30 ABG Methemoglobin 0.2 (0.0-1.5) 09/16/21 04:09 ABG Sodium 136.7 mmol/L (136.0-145.0) 09/16/21 04:09 ABG Potassium 3.3 mmol/L (3.40-4.50) L 09/16/21 04:09 ABG Chloride 104.0 mmol/L (98-107) 09/16/21 04:09 ABG Glucose 130 mg/dL (65-95) H 09/16/21 04:09 Oxyhemoglobin 97.8 % (95.0-99.0) 09/14/21 16:30 Carboxyhemoglobin 0.5 (0.5-1.5) 09/16/21 04:09 FiO2 100 % 09/14/21 16:30 FiO2 % 35.0 09/16/21 04:09 Sodium 145 mmol/L (137-145) D 09/17/21 04:24 Potassium 3.3 mmol/L (3.6-5.0) L 09/17/21 04:24 Chloride 105.4 mmol/L (98-107) 09/17/21 04:24 Carbon Dioxide 26 mmol/L (22-30) 09/17/21 04:24 Anion Gap 17 mmol/L 09/17/21 04:24 BUN 22 mg/dL (9-20) H 09/17/21 04:24 Creatinine 0.9 mg/dL (0.8-1.3) 09/17/21 04:24 Estimated GFR > 60 ml/min 09/17/21 04:24 BUN/Creatinine Ratio 24 % 09/17/21 04:24 Glucose 122 mg/dL (75-100) H 09/17/21 04:24 POC Glucose 112 mg/dL (70-105) H 09/17/21 06:34 Hemoglobin A1c 5.8 % (4-6) 09/15/21 17:39 Calcium 8.3 mg/dL (8.4-10.2) L 09/17/21 04:24 Magnesium 2.10 mg/dL (1.7-2.3) 09/17/21 04:24 Ferritin 196.7 ng/mL (30.0-300.0) 09/16/21 05:49 Total Bilirubin 0.40 mg/dL (0.1-1.2) 09/17/21 04:24 Direct Bilirubin < 0.2 mg/dL (0-0.2) 09/14/21 15:35 Indirect Bilirubin 0.1 mg/dL 09/14/21 15:35 AST 208 units/L (5-40) H 09/17/21 04:24 ALT 157 units/L (7-56) H 09/17/21 04:24 Alkaline Phosphatase 68 units/L (35-129) 09/17/21 04:24 Lactate Dehydrogenase 1274 units/L (91-180) H 09/16/21 05:49 Troponin T 12.440 ng/mL (0.00-0.029) H* D 09/15/21 03:36 C-Reactive Protein 9.40 mg/dL (0.00-1.30) H 09/16/21 05:49 Total Protein 6.6 g/dL (6.3-8.2) 09/17/21 04:24 Albumin 3.5 g/dL (3.9-5) L 09/17/21 04:24 Albumin/Globulin Ratio 1.1 % 09/17/21 04:24 Triglycerides 110 mg/dL (2-149) 09/14/21 20:33 Cholesterol 213 mg/dL (50-199) H 09/14/21 20:33 LDL Cholesterol Direct 134 mg/dL (50-130) H 09/14/21 20:33 HDL Cholesterol 67 mg/dL (40-59) H 09/14/21 20:33 Cholesterol/HDL Ratio 3.17 % 09/14/21 20:33 Arterial Blood Glucose 130 mg/dL (65-95) H 09/16/21 04:09 Arterial Blood Ionized Calcium 4.5 mg/dL (4.6-5.3) L 09/16/21 04:09 Urine Color Yellow (Yellow) 09/14/21 Unknown Urine Turbidity Slightly-cloudy (Clear) 09/14/21 Unknown Urine pH 6.0 (5.0-7.0) 09/14/21 Unknown Ur Specific [place] 1.028 (1.003-1.030) 09/14/21 Unknown Urine Protein 100 mg/dl mg/dL (Negative) 09/14/21 Unknown Urine Glucose (UA) Neg mg/dL (Negative) 09/14/21 Unknown Urine Ketones Tr mg/dL (Negative) 09/14/21 Unknown Urine Blood Neg (Negative) 09/14/21 Unknown Urine Nitrite Neg (Negative) 09/14/21 Unknown Ur Reducing Substances Not Reportable 09/14/21 Unknown Urine Bilirubin Neg (Negative) 09/14/21 Unknown Urine Ictotest Not Reportable 09/14/21 Unknown Urine Urobilinogen < 2.0 mg/dL (<2.0) 09/14/21 Unknown Ur Leukocyte Esterase Sm (Negative) 09/14/21 Unknown Urine WBC (Auto) 50.0 /HPF (0.0-6.0) H 09/14/21 Unknown Urine RBC (Auto) 12.0 /HPF (0.0-6.0) 09/14/21 Unknown U Epithel Cells (Auto) < 1.0 /HPF (0-13.0) 09/14/21 Unknown Urine Bacteria (Auto) 2+ /HPF (Negative) 09/14/21 Unknown Urine Mucus 3+ /HPF 09/14/21 Unknown Urine Yeast (Budding) Few /HPF 09/14/21 Unknown Urine Osmolality 1005 Mosm/kg 09/15/21 09:46 Urine Creatinine 187.8 mg/dL (0.1-20.0) H 09/15/21 09:46 Urine Sodium 87 mmol/L 09/15/21 09:46 Urine Urea Nitrogen 1272 09/15/21 09:46 Salicylates < 0.3 mg/dL (2.8-20.0) L 09/14/21 15:35 Urine Opiates Screen Negative 09/14/21 Unknown Urine Methadone Screen Negative 09/14/21 Unknown Acetaminophen 5.0 ug/mL (10.0-30.0) L 09/14/21 15:35 Ur Barbiturates Screen Negative 09/14/21 Unknown Ur Phencyclidine Scrn Negative 09/14/21 Unknown Ur Amphetamines Screen Negative 09/14/21 Unknown U Benzodiazepines Scrn Negative 09/14/21 Unknown Urine Cocaine Screen Negative 09/14/21 Unknown U Marijuana (THC) Screen Positive 09/14/21 Unknown Drugs of Abuse Note Disclamer 09/14/21 Unknown Coronavirus (PCR) Positive (Negative) A 09/15/21 Unknown Microbiology: Microbiology 09/14/21 Unknown Urine,Clean Catch Urine Culture - Final NO GROWTH AFTER 48 HOURS 09/16/21 08:25 Peripheral/Venous Blood Culture - Preliminary Culture in Progress 09/16/21 08:25 Peripheral/Venous Blood Culture - Preliminary Culture in Progress Alvarado/IV: Voiding Method Indwelling Catheter Active Medications - Current Medications Current Medications: Generic Name Dose Route Start Last Admin Trade Name Freq PRN Reason Stop Dose Admin Acetaminophen 650 mg 09/14/21 18:53 Acetaminophen 325 Mg Tab PO Q4H PRN Pain MILD(1-3)/Fever >100.5/BHATIA Hydrocodone Bitart/Acetaminophen 1 each 09/14/21 18:05 Hydrocodone/Acetaminophen 5-325 Mg Tab PO Q6H PRN Pain, Moderate (4-6) Lipase/Protease/Amylase 1 each 09/15/21 09:22 Lipase 10,500/Protease 25,000/Amylase 43,750 (Units) Dr Ortega FEEDTUBE PRN PRN For Clogged Feeding Tube Ascorbic Acid 500 mg 09/16/21 10:00 09/16/21 09:24 Ascorbic Acid 500 Mg Tab PO 500 mg QDAY CASSANDRA Administration Aspirin 162 mg 09/15/21 10:00 09/16/21 09:23 Aspirin 81 Mg Tab Chew FEEDTUBE 162 mg QDAY CASSANDRA Administration Atorvastatin Calcium 40 mg 09/15/21 08:13 09/16/21 22:39 Atorvastatin 40 Mg Tab FEEDTUBE 40 mg QHS CASSANDRA Administration Azithromycin 500 mg 09/15/21 17:00 Azithromycin 250 Mg/6.25 Ml Oral Liqd PO Q24HR CASSANDRA Protocol Cholecalciferol 5,000 unit 09/16/21 10:00 09/16/21 09:23 Cholecalciferol (Vit D3) 5,000 Unit Tab PO 5,000 unit DAILY CASSANDRA Administration Clopidogrel Bisulfate 75 mg 09/15/21 10:00 09/16/21 09:25 Clopidogrel 75 Mg Tab FEEDTUBE 75 mg QDAY CASSANDRA Administration Dexamethasone 6 mg 09/16/21 11:00 09/16/21 12:22 Dexamethasone 4 Mg/Ml Vial IV 09/25/21 10:01 6 mg Q24HR CASSANDRA Administration Dextrose 50 ml 09/15/21 16:49 Dextrose 50% In Water (25gm) 50 Ml Syringe IV Q30MIN PRN Hypoglycemia Protocol Famotidine 20 mg 09/15/21 10:00 09/16/21 22:39 Famotidine 20 Mg Tab FEEDTUBE 20 mg BID CASSANDRA Administration Heparin Sodium (Porcine) 5,000 unit 09/14/21 22:00 09/16/21 22:40 Heparin 5,000 Unit/1 Ml Vial SUB-Q 5,000 unit Q12HR CASSANDRA Administration Ceftriaxone Sodium 2 gm in 100 mls @ 200 mls/hr 09/15/21 17:00 09/16/21 20:41 Rocephin/Ns 2 Gm/100 Ml IV 200 mls/hr Q24H [facility] Administration Protocol REMDESIVIR 100 mg/ Sodium 250 mls @ 500 mls/hr 09/17/21 21:00 Chloride IV 09/20/21 21:29 Q24HR@2100 [facility] Potassium Chloride 10 meq in 100 mls @ 100 mls/hr 09/17/21 09:00 Kcl 10meq/100ml IV 09/17/21 12:59 Q1H [facility] Insulin Human Lispro 0 unit 09/15/21 18:00 09/17/21 06:54 Insulin Lispro 100 Unit/Ml SUB-Q Not Given Q6HR [facility] Protocol Lisinopril 5 mg 09/15/21 10:00 09/16/21 09:24 Lisinopril 5 Mg Tab PO 5 mg QDAY [facility] Administration Metoclopramide HCl 10 mg 09/14/21 18:53 Metoclopramide 10 Mg/2 Ml Inj IV Q6H PRN Nausea And Vomiting Metoprolol Tartrate 50 mg 09/15/21 08:13 09/16/21 22:39 Metoprolol Tartrate 50 Mg Tab FEEDTUBE 50 mg BID [facility] Administration Nitroglycerin 0.4 mg 09/15/21 06:00 09/17/21 06:30 Nitroglycerin 0.4 Mg Patch 24hr TD 0.4 mg DAILY@0600 [facility] Administration Ondansetron HCl 4 mg 09/14/21 18:53 Ondansetron 4 Mg/2 Ml Inj IV Q8H PRN Nausea And Vomiting Oxycodone/Acetaminophen 1 tab 09/14/21 18:53 Oxycodone /Acetaminophen 5-325mg Tab PO Q6H PRN Pain, Moderate (4-6) Senna 8.8 mg 09/15/21 22:00 09/16/21 22:47 Sennosides Oral Liqd 8.8 Mg/5 Ml Oral Liqd PO Not Given QHS [facility] Simple Syrup 15 ml 09/15/21 09:22 Simple Syrup 15 Ml FEEDTUBE PRN PRN Hypoglycemia Simple Syrup 30 ml 09/15/21 09:22 Simple Syrup 15 Ml FEEDTUBE PRN PRN Hypoglycemia Sodium Bicarbonate 325 mg 09/15/21 09:22 Sodium Bicarbonate 325 Mg Tab FEEDTUBE PRN PRN For Clogged Feeding Tube Sodium Chloride 10 ml 09/14/21 22:00 09/16/21 22:46 Sodium Chloride 0.9% 10 Ml Flush Syringe IV 10 ml BID CASSANDRA Administration Sodium Chloride 10 ml 09/14/21 18:53 Sodium Chloride 0.9% 10 Ml Flush Syringe IV PRN PRN LINE FLUSH Sodium Chloride 50 ml 09/16/21 11:30 Sodium Chloride 0.9% 50 Ml Ivpb IV 09/20/21 21:01 Q24HR@2100 CASSANDRA Zinc Sulfate 220 mg 09/15/21 22:00 09/16/21 22:39 Zinc Sulfate 220 Mg Cap PO 220 mg BID CASSANDRA Administration Nutrition/Malnutrition Assess - Dietary Evaluation Nutrition/Malnutrition Findings: Nutrition Notes Start: 09/15/21 09:13 Freq: Status: Active Protocol: Document 09/15/21 09:13 NITIN (Rec: 09/15/21 09:22 NITIN [id number]) Nutrition Notes Need for Assessment generated from: MD Order Initial or Follow up Assessment Other Pertinent Diagnosis STEMI, cardiac arrest, hypokalemia Current Diet No diet Labs/Tests K 5.1 BG 182 09/14: Cholesterol 213 LDL 134 HLD 67 Pertinent Medications Propofol at 13.32 ml/hr (352 kcal) 09/14: 40 mEq KCl Height 5 ft 7 in Weight 74 kg [place] Body Weight (kg) 67.27 BMI 25.5 Weight Status Appropriate Subjective/Other Information MD consult for TF. Pt on vent. NGT to LIS at this time. Burn Absent Trauma Absent GI Symptoms Vomiting,Diarrhea Current % PO Negligible Minimum of two criteria No #1 Nutrition Diagnosis Inadequate oral intake Etiology cardiac arrest As Evidenced by Signs and Symptoms pt on vent and unable to consume PO, NGT to LIS Is patient on ventilator? Yes Is Patient Ambulatory and/or Out of Bed No REE-([place]-St. Jeor-confined to bed) 1921.500 Calculation [facility]ations [facility] Additional Notes Protein: (1.2-2/kg) 89-148g Fluid: 1 ml/kcal or per Nutrition Intervention Change Diet Order: Start TF as medically able Nutrition Support: Vital AF 1.2 at 65 ml/hr Flush 100 ml q4h or per MD Kcal 1,872 Protein (gm) 117 Fluid (mL) 1,265 Goal #1 Start TF Anticipated Discharge Needs: Unable to determine at this time Follow-Up By: 09/17/21 Additional Comments F/U: TF start <ROSALIE SHARMA - Last Filed: 09/18/21 07:27> Assessment and Plan Assessment and plan: I saw and evaluated the patient. I agree with the findings and the plan of care as documented in the Nurse Practitioner's~note, with the following corrections and additions. Hospitalist Physical - Constitutional Vitals: Temp Pulse Resp BP Pulse Ox 98.6 F 130 H 27 H 109/67 99 09/18/21 04:00 09/18/21 06:30 09/18/21 06:30 09/18/21 07:00 09/18/21 06:45 HEART Score - HEART Score Troponin: Troponin T 12.440 ng/mL (0.00-0.029) H* D 09/15/21 03:36 Results - Labs CBC & Chem 7: 09/18/21 04:00 09/18/21 05:00 Labs: Laboratory Last Values WBC 16.8 K/mm3 (4.5-11.0) H 09/18/21 04:00 RBC 3.87 M/mm3 (3.65-5.03) 09/18/21 04:00 Hgb 11.5 gm/dl (11.8-15.2) L 09/18/21 04:00 Hct 36.2 % (35.5-45.6) 09/18/21 04:00 MCV 94 fl (84-94) 09/18/21 04:00 MCH 30 pg (28-32) 09/18/21 04:00 MCHC 32 % (32-34) 09/18/21 04:00 RDW 12.7 % (13.2-15.2) L 09/18/21 04:00 Plt Count 198 K/mm3 (140-440) 09/18/21 04:00 Lymph % (Auto) 46.5 % (13.4-35.0) H 09/14/21 15:35 [place] % (Auto) 6.6 % (0.0-7.3) 09/14/21 15:35 Eos % (Auto) 1.1 % (0.0-4.3) 09/14/21 15:35 Baso % (Auto) 0.6 % (0.0-1.8) 09/14/21 15:35 Lymph # (Auto) 2.9 K/mm3 (1.2-5.4) 09/14/21 15:35 [place] # (Auto) 0.4 K/mm3 (0.0-0.8) 09/14/21 15:35 Eos # (Auto) 0.1 K/mm3 (0.0-0.4) 09/14/21 15:35 Baso # (Auto) 0.0 K/mm3 (0.0-0.1) 09/14/21 15:35 Add Manual Diff Complete 09/15/21 00:08 Total Counted 100 09/15/21 00:08 Seg Neutrophils % 45.2 % (40.0-70.0) 09/14/21 15:35 Seg Neuts % (Manual) 89.0 % (40.0-70.0) H 09/15/21 00:08 Band Neutrophils % 3.0 % 09/15/21 00:08 Lymphocytes % (Manual) 3.0 % (13.4-35.0) L 09/15/21 00:08 Monocytes % (Manual) 5.0 % (0.0-7.3) 09/15/21 00:08 Nucleated RBC % Not Reportable 09/15/21 00:08 Seg Neutrophils # 2.8 K/mm3 (1.8-7.7) 09/14/21 15:35 Seg Neutrophils # Man 14.4 K/mm3 (1.8-7.7) H 09/15/21 00:08 Band Neutrophils # 0.5 K/mm3 09/15/21 00:08 Lymphocytes # (Manual) 0.5 K/mm3 (1.2-5.4) L 09/15/21 00:08 Abs React Lymphs (Man) 0.0 K/mm3 09/15/21 00:08 Monocytes # (Manual) 0.8 K/mm3 (0.0-0.8) 09/15/21 00:08 Eosinophils # (Manual) 0.0 K/mm3 (0.0-0.4) 09/15/21 00:08 Basophils # (Manual) 0.0 K/mm3 (0.0-0.1) 09/15/21 00:08 Metamyelocytes # 0.0 K/mm3 09/15/21 00:08 Myelocytes # 0.0 K/mm3 09/15/21 00:08 Promyelocytes # 0.0 K/mm3 09/15/21 00:08 Blast Cells # 0.0 K/mm3 09/15/21 00:08 WBC Morphology Not Reportable 09/15/21 00:08 Hypersegmented Neuts Not Reportable 09/15/21 00:08 Hyposegmented Neuts Not Reportable 09/15/21 00:08 Hypogranular Neuts Not Reportable 09/15/21 00:08 Smudge Cells Not Reportable 09/15/21 00:08 Toxic Granulation Not Reportable 09/15/21 00:08 Toxic Vacuolation Not Reportable 09/15/21 00:08 Dohle Bodies Not Reportable 09/15/21 00:08 Pelger-Huet Anomaly Not Reportable 09/15/21 00:08 Sarwat Rods Not Reportable 09/15/21 00:08 Platelet Estimate Consistent w auto 09/15/21 00:08 Clumped Platelets Not Reportable 09/15/21 00:08 Plt Clumps, EDTA Not Reportable 09/15/21 00:08 Large Platelets Not Reportable 09/15/21 00:08 Giant Platelets Not Reportable 09/15/21 00:08 Platelet Satelliting Not Reportable 09/15/21 00:08 Plt Morphology Comment Not Reportable 09/15/21 00:08 RBC Morphology Normal 09/15/21 00:08 Dimorphic RBCs Not Reportable 09/15/21 00:08 Polychromasia Not Reportable 09/15/21 00:08 Hypochromasia Not Reportable 09/15/21 00:08 Poikilocytosis Not Reportable 09/15/21 00:08 Anisocytosis Not Reportable 09/15/21 00:08 Microcytosis Not Reportable 09/15/21 00:08 Macrocytosis Not Reportable 09/15/21 00:08 Spherocytes Not Reportable 09/15/21 00:08 Pappenheimer Bodies Not Reportable 09/15/21 00:08 Sickle Cells Not Reportable 09/15/21 00:08 Target Cells Not Reportable 09/15/21 00:08 Tear Drop Cells Not Reportable 09/15/21 00:08 Ovalocytes Not Reportable 09/15/21 00:08 Helmet Cells Not Reportable 09/15/21 00:08 [place] Bodies Not Reportable 09/15/21 00:08 [place] Rings Not Reportable 09/15/21 00:08 [place] Cells Not Reportable 09/15/21 00:08 Bite Cells Not Reportable 09/15/21 00:08 Crenated Cell Not Reportable 09/15/21 00:08 Elliptocytes Not Reportable 09/15/21 00:08 Acanthocytes (Spur) Not Reportable 09/15/21 00:08 Rouleaux Not Reportable 09/15/21 00:08 Hemoglobin C Crystals Not Reportable 09/15/21 00:08 Schistocytes Not Reportable 09/15/21 00:08 Malaria parasites Not Reportable 09/15/21 00:08 [place] Bodies Not Reportable 09/15/21 00:08 Hem Pathologist Commnt No 09/15/21 00:08 PT 16.4 Sec. (12.2-14.9) H 09/14/21 15:35 INR 1.19 (0.87-1.13) H 09/14/21 15:35 APTT 26.6 Sec. (24.2-36.6) 09/14/21 15:35 D-Dimer 2074.63 ng/mlDDU (0-234) H 09/18/21 04:00 ABG pH 7.501 (7.320-7.450) H 09/16/21 04:09 POC ABG pCO2 30.5 mmHg (32.0-48.0) L 09/16/21 04:09 ABG pCO2 42.6 mm Hg 09/14/21 16:30 POC ABG pO2 148.3 mmHg (83-108) H 09/16/21 04:09 ABG pO2 376.5 mm Hg (80.0-90.0) H 09/14/21 16:30 POC ABG HCO3 23.3 09/16/21 04:09 ABG HCO3 19.7 mmol/L (20.0-26.0) L 09/14/21 16:30 ABG O2 Saturation 99.4 (0-100) 09/16/21 04:09 ABG O2 Content 21.0 (0.0-44) 09/14/21 16:30 POC ABG Base Excess 1.1 09/16/21 04:09 ABG Base Excess -6.7 mmol/L (-2.0-3.0) L 09/14/21 16:30 ABG Hemoglobin 14.5 (12.0-17.5) 09/16/21 04:09 ABG Oxyhemoglobin 98.7 (94-98) H 09/16/21 04:09 ABG Carboxyhemoglobin 1.1 % (0.0-5.0) 09/14/21 16:30 ABG Methemoglobin 0.2 (0.0-1.5) 09/16/21 04:09 ABG Sodium 136.7 mmol/L (136.0-145.0) 09/16/21 04:09 ABG Potassium 3.3 mmol/L (3.40-4.50) L 09/16/21 04:09 ABG Chloride 104.0 mmol/L (98-107) 09/16/21 04:09 ABG Glucose 130 mg/dL (65-95) H 09/16/21 04:09 Oxyhemoglobin 97.8 % (95.0-99.0) 09/14/21 16:30 Carboxyhemoglobin 0.5 (0.5-1.5) 09/16/21 04:09 FiO2 100 % 09/14/21 16:30 FiO2 % 35.0 09/16/21 04:09 Sodium 146 mmol/L (137-145) H 09/18/21 05:00 Potassium 3.8 mmol/L (3.6-5.0) 09/18/21 05:00 Chloride 107.4 mmol/L (98-107) H 09/18/21 05:00 Carbon Dioxide 24 mmol/L (22-30) 09/18/21 05:00 Anion Gap 18 mmol/L 09/18/21 05:00 BUN 28 mg/dL (9-20) H 09/18/21 05:00 Creatinine 0.9 mg/dL (0.8-1.3) 09/18/21 05:00 Estimated GFR > 60 ml/min 09/18/21 05:00 BUN/Creatinine Ratio 31 % 09/18/21 05:00 Glucose 111 mg/dL (75-100) H 09/18/21 05:00 POC Glucose 115 mg/dL (70-105) H 09/18/21 00:12 Hemoglobin A1c 5.8 % (4-6) 09/15/21 17:39 Calcium 8.6 mg/dL (8.4-10.2) 09/18/21 05:00 Phosphorus 2.70 mg/dL (2.5-4.5) 09/18/21 04:00 Magnesium 2.10 mg/dL (1.7-2.3) 09/18/21 04:00 Ferritin 311.4 ng/mL (30.0-300.0) H 09/18/21 04:00 Total Bilirubin 0.30 mg/dL (0.1-1.2) 09/18/21 05:00 Direct Bilirubin < 0.2 mg/dL (0-0.2) 09/14/21 15:35 Indirect Bilirubin 0.1 mg/dL 09/14/21 15:35 AST 139 units/L (5-40) H 09/18/21 05:00 ALT 141 units/L (7-56) H 09/18/21 05:00 Alkaline Phosphatase 65 units/L (35-129) 09/18/21 05:00 Lactate Dehydrogenase 857 units/L (91-180) H 09/18/21 04:00 Troponin T 12.440 ng/mL (0.00-0.029) H* D 09/15/21 03:36 C-Reactive Protein 5.50 mg/dL (0.00-1.30) H 09/18/21 04:00 Total Protein 6.3 g/dL (6.3-8.2) 09/18/21 05:00 Albumin 3.6 g/dL (3.9-5) L 09/18/21 05:00 Albumin/Globulin Ratio 1.3 % 09/18/21 05:00 Triglycerides 110 mg/dL (2-149) 09/14/21 20:33 Cholesterol 213 mg/dL (50-199) H 09/14/21 20:33 LDL Cholesterol Direct 134 mg/dL (50-130) H 09/14/21 20:33 HDL Cholesterol 67 mg/dL (40-59) H 09/14/21 20:33 Cholesterol/HDL Ratio 3.17 % 09/14/21 20:33 Arterial Blood Glucose 130 mg/dL (65-95) H 09/16/21 04:09 Arterial Blood Ionized Calcium 4.5 mg/dL (4.6-5.3) L 09/16/21 04:09 Urine Color Yellow (Yellow) 09/14/21 Unknown Urine Turbidity Slightly-cloudy (Clear) 09/14/21 Unknown Urine pH 6.0 (5.0-7.0) 09/14/21 Unknown Ur Specific [place] 1.028 (1.003-1.030) 09/14/21 Unknown Urine Protein 100 mg/dl mg/dL (Negative) 09/14/21 Unknown Urine Glucose (UA) Neg mg/dL (Negative) 09/14/21 Unknown Urine Ketones Tr mg/dL (Negative) 09/14/21 Unknown Urine Blood Neg (Negative) 09/14/21 Unknown Urine Nitrite Neg (Negative) 09/14/21 Unknown Ur Reducing Substances Not Reportable 09/14/21 Unknown Urine Bilirubin Neg (Negative) 09/14/21 Unknown Urine Ictotest Not Reportable 09/14/21 Unknown Urine Urobilinogen < 2.0 mg/dL (<2.0) 09/14/21 Unknown Ur Leukocyte Esterase Sm (Negative) 09/14/21 Unknown Urine WBC (Auto) 50.0 /HPF (0.0-6.0) H 09/14/21 Unknown Urine RBC (Auto) 12.0 /HPF (0.0-6.0) 09/14/21 Unknown U Epithel Cells (Auto) < 1.0 /HPF (0-13.0) 09/14/21 Unknown Urine Bacteria (Auto) 2+ /HPF (Negative) 09/14/21 Unknown Urine Mucus 3+ /HPF 09/14/21 Unknown Urine Yeast (Budding) Few /HPF 09/14/21 Unknown Urine Osmolality 1005 Mosm/kg 09/15/21 09:46 Urine Creatinine 187.8 mg/dL (0.1-20.0) H 09/15/21 09:46 Urine Sodium 87 mmol/L 09/15/21 09:46 Urine Urea Nitrogen 1272 09/15/21 09:46 Salicylates < 0.3 mg/dL (2.8-20.0) L 09/14/21 15:35 Urine Opiates Screen Negative 09/14/21 Unknown Urine Methadone Screen Negative 09/14/21 Unknown Acetaminophen 5.0 ug/mL (10.0-30.0) L 09/14/21 15:35 Ur Barbiturates Screen Negative 09/14/21 Unknown Ur Phencyclidine Scrn Negative 09/14/21 Unknown Ur Amphetamines Screen Negative 09/14/21 Unknown U Benzodiazepines Scrn Negative 09/14/21 Unknown Urine Cocaine Screen Negative 09/14/21 Unknown U Marijuana (THC) Screen Positive 09/14/21 Unknown Drugs of Abuse Note Disclamer 09/14/21 Unknown Coronavirus (PCR) Positive (Negative) A 09/15/21 Unknown Microbiology: Microbiology 09/14/21 17:25 Tracheal Aspirate Sputum Culture - Preliminary 09/16/21 08:25 Peripheral/Venous Blood Culture - Preliminary NO GROWTH AFTER 24 HOURS 09/16/21 08:25 Peripheral/Venous Blood Culture - Preliminary NO GROWTH AFTER 24 HOURS [place]/IV: Voiding Method Urinal Active Medications - Current Medications Current Medications: Generic Name Dose Route Start Last Admin Trade Name Freq PRN Reason Stop Dose Admin Acetaminophen 650 mg 09/14/21 18:53 Acetaminophen 325 Mg Tab PO Q4H PRN Pain MILD(1-3)/Fever >100.5/BHATIA Hydrocodone Bitart/Acetaminophen 1 each 09/14/21 18:05 Hydrocodone/Acetaminophen 5-325 Mg Tab PO Q6H PRN Pain, Moderate (4-6) Lipase/Protease/Amylase 1 each 09/15/21 09:22 Lipase 10,500/Protease 25,000/Amylase 43,750 (Units) Dr Ortega FEEDTUBE PRN PRN For Clogged Feeding Tube Ascorbic Acid 500 mg 09/16/21 10:00 09/17/21 09:22 Ascorbic Acid 500 Mg Tab PO 500 mg QDAY CASSANDRA Administration Aspirin 162 mg 09/15/21 10:00 09/17/21 09:21 Aspirin 81 Mg Tab Chew FEEDTUBE 162 mg QDAY CASSANDRA Administration Atorvastatin Calcium 40 mg 09/15/21 08:13 09/17/21 21:37 Atorvastatin 40 Mg Tab FEEDTUBE 40 mg QHS CASSANDRA Administration Azithromycin 500 mg 09/15/21 17:00 09/17/21 12:41 Azithromycin 250 Mg/6.25 Ml Oral Liqd PO 500 mg Q24HR CASSANDRA Administration Protocol Cholecalciferol 5,000 unit 09/16/21 10:00 09/17/21 09:22 Cholecalciferol (Vit D3) 5,000 Unit Tab PO 5,000 unit DAILY CASSANDRA Administration Clopidogrel Bisulfate 75 mg 09/15/21 10:00 09/17/21 09:22 Clopidogrel 75 Mg Tab FEEDTUBE 75 mg QDAY CASSANDRA Administration Dexamethasone 6 mg 09/16/21 11:00 09/17/21 09:21 Dexamethasone 4 Mg/Ml Vial IV 09/25/21 10:01 6 mg Q24HR CASSANDRA Administration Dextrose 50 ml 09/15/21 16:49 Dextrose 50% In Water (25gm) 50 Ml Syringe IV Q30MIN PRN Hypoglycemia Protocol Famotidine 20 mg 09/15/21 10:00 09/17/21 21:37 Famotidine 20 Mg Tab FEEDTUBE 20 mg BID CASSANDRA Administration Heparin Sodium (Porcine) 5,000 unit 09/14/21 22:00 09/17/21 21:36 Heparin 5,000 Unit/1 Ml Vial SUB-Q 5,000 unit Q12HR CASSANDRA Administration Ceftriaxone Sodium 2 gm in 100 mls @ 200 mls/hr 09/15/21 17:00 09/17/21 19:55 Rocephin/Ns 2 Gm/100 Ml IV 200 mls/hr Q24H CASSANDRA Administration Protocol REMDESIVIR 100 mg/ Sodium 250 mls @ 500 mls/hr 09/17/21 21:00 09/17/21 21:36 Chloride IV 09/20/21 21:29 500 mls/hr Q24HR@2100 CASSANDRA Administration Insulin Human Lispro 0 unit 09/17/21 22:00 09/18/21 01:03 Insulin Lispro 100 Unit/Ml SUB-Q Not Given ACHS CASSANDRA Protocol Lisinopril 5 mg 09/15/21 10:00 09/17/21 09:22 Lisinopril 5 Mg Tab PO 5 mg QDAY CASSANDRA Administration Metoclopramide HCl 10 mg 09/14/21 18:53 Metoclopramide 10 Mg/2 Ml Inj IV Q6H PRN Nausea And Vomiting Metoprolol Tartrate 50 mg 09/15/21 08:13 09/17/21 21:37 Metoprolol Tartrate 50 Mg Tab FEEDTUBE 50 mg BID CASSANDRA Administration Nitroglycerin 0.4 mg 09/15/21 06:00 09/18/21 06:10 Nitroglycerin 0.4 Mg Patch 24hr TD 0.4 mg DAILY@0600 CASSANDRA Administration Ondansetron HCl 4 mg 09/14/21 18:53 Ondansetron 4 Mg/2 Ml Inj IV Q8H PRN Nausea And Vomiting Oxycodone/Acetaminophen 1 tab 09/14/21 18:53 Oxycodone /Acetaminophen 5-325mg Tab PO Q6H PRN Pain, Moderate (4-6) Senna 8.8 mg 09/15/21 22:00 09/17/21 21:37 Sennosides Oral Liqd 8.8 Mg/5 Ml Oral Liqd PO 8.8 mg QHS CASSANDRA Administration Simple Syrup 15 ml 09/15/21 09:22 Simple Syrup 15 Ml FEEDTUBE PRN PRN Hypoglycemia Simple Syrup 30 ml 09/15/21 09:22 Simple Syrup 15 Ml FEEDTUBE PRN PRN Hypoglycemia Sodium Bicarbonate 325 mg 09/15/21 09:22 Sodium Bicarbonate 325 Mg Tab FEEDTUBE PRN PRN For Clogged Feeding Tube Sodium Chloride 10 ml 09/14/21 22:00 09/17/21 21:38 Sodium Chloride 0.9% 10 Ml Flush Syringe IV 10 ml BID CASSANDRA Administration Sodium Chloride 10 ml 09/14/21 18:53 Sodium Chloride 0.9% 10 Ml Flush Syringe IV PRN PRN LINE FLUSH Sodium Chloride 50 ml 09/16/21 11:30 09/17/21 21:37 Sodium Chloride 0.9% 50 Ml Ivpb IV 09/20/21 21:01 50 ml Q24HR@2100 CASSANDRA Administration Zinc Sulfate 220 mg 09/15/21 22:00 09/17/21 21:38 Zinc Sulfate 220 Mg Cap PO 220 mg BID CASSANDRA Administration Nutrition/Malnutrition Assess - Dietary Evaluation Nutrition/Malnutrition Findings: Nutrition Notes Start: 09/15/21 09:13 Freq: Status: Active Protocol: Document 09/15/21 09:13 NITIN (Rec: 09/15/21 09:22 [id number]) Nutrition Notes Need for Assessment generated from: MD Order Initial or Follow up Assessment Other Pertinent Diagnosis STEMI, cardiac arrest, hypokalemia Current Diet No diet Labs/Tests K 5.1 BG 182 09/14: Cholesterol 213 LDL 134 HLD 67 Pertinent Medications Propofol at 13.32 ml/hr (352 kcal) 09/14: 40 mEq KCl Height 5 ft 7 in Weight 74 kg [place] Body Weight (kg) 67.27 BMI 25.5 Weight Status Appropriate Subjective/Other Information MD consult for TF. Pt on vent. NGT to LIS at this time. Burn Absent Trauma Absent GI Symptoms Vomiting,Diarrhea Current % PO Negligible Minimum of two criteria No #1 Nutrition Diagnosis Inadequate oral intake Etiology cardiac arrest As Evidenced by Signs and Symptoms pt on vent and unable to consume PO, NGT to LIS Is patient on ventilator? Yes Is Patient Ambulatory and/or Out of Bed No REE-([facility]-confined to bed) 1921.500 Calculation Used for Recommendations [facility] Additional Notes Protein: (1.2-2/kg) 89-148g Fluid: 1 ml/kcal or per MD Nutrition Intervention Change Diet Order: Start TF as medically able Nutrition Support: Vital AF 1.2 at 65 ml/hr Flush 100 ml q4h or per MD Kcal 1,872 Protein (gm) 117 Fluid (mL) 1,265 Goal #1 Start TF Anticipated Discharge Needs: Unable to determine at this time Follow-Up By: 09/17/21 Additional Comments F/U: TF start
--- NOTE | 2021-09-17 16:41 | Progress Note ---
Assessment and Plan Cultures: Urine culture no growth so far A/P: 41 yo M no known past medical history #COVID-19 pneumonia: Has left sided opacity, however in the setting of arrest and resuscitation unclear if this is truly COVID or other finding. #Cardiac arrest: with complete occlusion of the LAD. May have been exacerbated by COVID, or could be a coincidental finding. #Acute hypoxemic respiratory failure: Likely secondary to COVID-19 infection/ar rest. Currently on 3L NC Recommendations: -Steroids per pulmonary -Remdesivir x5 days. If improving and okay to discharge otherwise, no need to stay to complete all 5 days of Remdesivir. -Obtain q48-72h inflammatory markers - ferritin, Ddimer, CRP, LDH -Continue ceftriaxone 2 gm IV qday and azithromycin 500 mg PO qday, if procalcitonin <0.25 ng/mL stop antibiotics -If discharging okay to discharge with Omnicef 300 mg every 12 hours to complete a full course. -Anticoagulation per hospital protocol -Proning as able Thank you for the consult, we will sign off. Please call for questions. Delfino Malave MD [facility] O: [phone] F: [phone] Subjective Date of service: 09/17/21 Interval history: Afebrile, white count remains elevated at 16.2. Cultures remain negative. On room air. Imaging personally reviewed: Head CT: No acute lesions. Objective - Exam Narrative Exam: Physical exam deferred to reduce risk of transmission of COVID-19. Please refer to primary team's note. - Constitutional Vitals: Vital Signs Temp Pulse Resp BP Pulse Ox 98.7 F 260 H 32 H 114/70 98 09/17/21 16:32 09/17/21 16:00 09/17/21 14:31 09/17/21 16:31 09/17/21 16:31 Temperature -Last 24 Hours Temperature 98.7 F Temperature 98.1 F Temperature 98.6 F Temperature 98.8 F - Labs CBC & Chem 7: 09/17/21 04:24 09/17/21 04:24 Labs: Abnormal lab results 09/15/21 09/16/21 09/16/21 Range/Units 09:46 18:03 21:35 WBC (4.5-11.0) K/mm3 RDW (13.2-15.2) % Potassium (3.6-5.0) mmol/L BUN (9-20) mg/dL Glucose (75-100) mg/dL POC Glucose 126 H 131 H (70-105) mg/dL Calcium (8.4-10.2) mg/dL AST (5-40) units/L ALT (7-56) units/L Albumin (3.9-5) g/dL Urine Creatinine 187.8 H (0.1-20.0) mg/dL 09/17/21 09/17/21 09/17/21 Range/Units 01:09 04:24 04:24 WBC 16.2 H (4.5-11.0) K/mm3 RDW 12.5 L (13.2-15.2) % Potassium 3.3 L (3.6-5.0) mmol/L BUN 22 H (9-20) mg/dL Glucose 122 H (75-100) mg/dL POC Glucose 129 H (70-105) mg/dL Calcium 8.3 L (8.4-10.2) mg/dL AST 208 H (5-40) units/L ALT 157 H (7-56) units/L Albumin 3.5 L (3.9-5) g/dL Urine Creatinine (0.1-20.0) mg/dL 09/17/21 Range/Units 06:34 WBC (4.5-11.0) K/mm3 RDW (13.2-15.2) % Potassium (3.6-5.0) mmol/L BUN (9-20) mg/dL Glucose (75-100) mg/dL POC Glucose 112 H (70-105) mg/dL Calcium (8.4-10.2) mg/dL AST (5-40) units/L ALT (7-56) units/L Albumin (3.9-5) g/dL Urine Creatinine (0.1-20.0) mg/dL
[2021-09-17] MEDS: cefTRIAXone/NS 2 GM/100 ML 2 GM/100 ML BAG IV SCH (19:55)
[2021-09-17] MEDS: REMDESIVIR 100 MG in SODIUM CHLORIDE 0.9% 250ML 250 ML IV SCH (21:36)
[2021-09-17] MEDS: SENNOSIDES ORAL LIQD 8.8 MG/5 ML ORAL LIQD PO SCH (21:37)
[2021-09-17] MEDS: SODIUM CHLORIDE 0.9% 50 ML IVPB IV SCH (21:37)
[2021-09-18] MEDS: FREE WATER PO SCH ×2 (01:03→01:38)
[2021-09-18] MEDS: INSULIN LISPRO 100 UNIT/ML SUB-Q SCH ×5 (01:03→21:36)
[2021-09-18 05:58] LABS: Hematocrit 36.2 % (35.5-45.6); Hemoglobin 11.5 gm/dl (11.8-15.2); Mean Corpuscular HGB Conc 32 % (32-34); Mean Corpuscular Volume 94 fl (84-94); Platelet Count 198 K/mm3 (140-440); Red Blood Count 3.87 M/mm3 (3.65-5.03); Red Cell Distribution Width 12.7 % (13.2-15.2)
[2021-09-18 06:10] LABS: BUN/Creatinine Ratio 32; Blood Urea Nitrogen 29 mg/dL (9-20); Calcium 8.5 mg/dL (8.4-10.2); Hemolysis Index 2
[2021-09-18 06:10] LABS: Alanine Aminotransferase 141 units/L (7-56); Albumin 3.6 g/dL (3.9-5); BUN/Creatinine Ratio 31; Blood Urea Nitrogen 28 mg/dL (9-20); Calcium 8.6 mg/dL (8.4-10.2); Hemolysis Index 2
[2021-09-18] MEDS: NITROGLYCERIN 0.4 MG PATCH 24HR TD SCH (06:10)
[2021-09-18] MEDS: HEPARIN 5,000 UNIT/1 ML VIAL SUB-Q SCH ×2 (09:45→21:35)
[2021-09-18] MEDS: dexAMETHasone 4 MG/ML VIAL IV SCH (09:45)
[2021-09-18] MEDS: ASCORBIC ACID 500 MG TAB PO SCH (09:46)
[2021-09-18] MEDS: CLOPIDOGREL 75 MG TAB FEEDTUBE SCH (09:46)
[2021-09-18] MEDS: FAMOTIDINE 20 MG TAB FEEDTUBE SCH ×2 (09:46→21:38)
[2021-09-18] MEDS: ASPIRIN 81 MG TAB CHEW FEEDTUBE SCH (09:46)
[2021-09-18] MEDS: CHOLECALCIFEROL (VIT D3) 5,000 UNIT TAB PO SCH (09:46)
[2021-09-18] MEDS: ZINC SULFATE 220 MG CAP PO SCH ×2 (09:46→21:39)
[2021-09-18] MEDS: LISINOPRIL 5 MG TAB PO SCH (09:56)
[2021-09-18] MEDS: METOPROLOL TARTRATE 50 MG TAB FEEDTUBE SCH ×2 (09:57→21:38)
--- NOTE | 2021-09-18 10:23 | Progress Note ---
Assessment and Plan - Patient Problems (1) STEMI (ST elevation myocardial infarction) Current Visit: Yes Status: Acute Qualifiers: Involved coronary artery: right coronary artery Qualified Code(s): I21.11 - ST elevation (STEMI) myocardial infarction involving right coronary artery Plan to address problem: Status post acute anterolateral wall myocardial infarction, complicated by ventricular fibrillation arrest in the emergency room. The patient underwent successful primary angioplasty and stenting of 100% proximal LAD occlusion. Subsequent echocardiogram shows a severe dilated cardiomyopathy with ejection fraction 20% and hypo to akinesis of the anterior lateral wall and apex. In addition to guideline directed medical therapy, we have ordered LifeVest monitoring on discharge. Subjective Date of service: 09/18/21 Interval history: Patient is awake and comfortably no acute distress, no chest pain reported. His reported with intermittent confusion and forgetfulness, following his cardiac arrest. He is in a stable sinus rhythm with stable hemodynamics. Therapy is ongoing for his intercurrent acute Covid infection. Objective Vital Signs Temp Pulse Pulse Resp BP Pulse Ox 09/18/21 09:57 74 133/84 09/18/21 09:56 74 133/84 09/18/21 09:00 101 H 16 114/90 100 09/18/21 08:46 85 17 114/90 97 09/18/21 08:38 76 23 114/90 09/18/21 08:18 114/90 100 09/18/21 08:02 97 09/18/21 08:00 114/90 100 09/18/21 07:48 118/70 100 09/18/21 07:43 98.2 F 09/18/21 07:30 118/70 97 09/18/21 07:16 118/70 100 09/18/21 07:00 109/67 09/18/21 06:45 109/67 99 09/18/21 06:30 130 H 27 H 109/67 97 09/18/21 06:16 97 H 28 H 109/67 89 09/18/21 06:10 78 109/67 09/18/21 06:00 109/67 99 09/18/21 05:45 117/72 89 09/18/21 05:30 85 19 117/72 97 09/18/21 05:22 74 24 117/72 09/18/21 05:00 79 25 H 117/72 98 09/18/21 04:46 105 H 21 117/72 98 09/18/21 04:30 117/72 90 09/18/21 04:16 117/72 99 09/18/21 04:00 98.6 F 117/72 99 09/18/21 03:46 134/77 97 09/18/21 03:30 134/77 99 09/18/21 03:16 134/77 97 09/18/21 03:14 70 20 97 09/18/21 03:00 134/77 97 09/18/21 02:46 129/87 97 09/18/21 02:30 81 18 129/87 97 09/18/21 02:16 84 15 129/87 97 09/18/21 02:00 129/87 09/18/21 01:46 117/84 81 L 09/18/21 01:30 117/84 96 09/18/21 01:16 117/84 98 09/18/21 01:00 75 17 117/84 97 09/18/21 00:46 82 11 L 120/78 99 09/18/21 00:30 91 H 13 120/78 97 09/18/21 00:16 96 H 19 120/78 96 09/18/21 00:00 98.7 F 79 79 20 120/78 96 09/17/21 23:46 93 H 20 124/82 97 09/17/21 23:30 124/82 97 09/17/21 23:16 86 27 H 124/82 96 09/17/21 23:00 37 H 124/82 09/17/21 22:46 81 26 H 130/70 96 09/17/21 22:31 84 30 H 130/70 96 09/17/21 22:15 105 H 15 130/70 98 09/17/21 22:01 93 H 25 H 141/93 95 09/17/21 22:00 79 09/17/21 21:45 95 H 22 141/93 96 09/17/21 21:37 80 141/93 09/17/21 21:31 141/93 96 09/17/21 21:15 141/93 99 09/17/21 21:10 97 09/17/21 21:00 124/88 98 09/17/21 20:45 124/88 98 09/17/21 20:43 124/88 96 09/17/21 20:31 97 H 16 124/88 98 01/04/22 20:15 83 21 124/88 98 09/17/21 20:01 91 H 22 124/88 97 09/17/21 20:00 98.6 F 71 22 98 09/17/21 19:45 84 20 104/83 98 09/17/21 19:31 104/83 97 09/17/21 19:15 104/83 98 09/17/21 19:00 79 104/83 99 09/17/21 18:45 81 106/73 97 09/17/21 18:31 88 106/73 97 09/17/21 18:15 92 H 106/73 98 09/17/21 18:01 79 16 130/75 99 09/17/21 17:45 130/75 96 09/17/21 17:31 130/75 96 09/17/21 17:15 130/75 98 09/17/21 17:00 124/72 98 09/17/21 16:46 108/78 99 09/17/21 16:32 98.7 F 09/17/21 16:31 114/70 98 09/17/21 16:15 123/91 96 09/17/21 16:00 260 H 85 18 118/74 96 09/17/21 15:45 122/74 97 09/17/21 15:31 112/70 98 09/17/21 15:15 112/70 96 09/17/21 15:00 116/76 97 09/17/21 14:45 127/83 96 09/17/21 14:31 74 32 H 103/68 99 09/17/21 14:15 81 109/71 97 09/17/21 14:00 84 123/93 96 09/17/21 13:45 142 H 119/79 97 09/17/21 13:30 81 111/71 96 09/17/21 13:15 103 H 128/85 97 09/17/21 13:01 82 128/85 98 09/17/21 12:45 77 128/85 99 09/17/21 12:30 82 133/82 97 09/17/21 12:15 82 125/79 97 09/17/21 12:01 82 125/79 96 09/17/21 12:00 83 21 97 09/17/21 11:45 76 120/78 98 09/17/21 11:37 98.1 F 09/17/21 11:30 82 20 128/90 97 09/17/21 11:15 107 H 17 117/78 97 09/17/21 11:00 79 19 117/78 97 09/17/21 10:45 90 18 129/93 97 09/17/21 10:30 81 13 129/93 97 - Physical Examination General: No Apparent Distress HEENT: Positive: PERRL Neck: Positive: neck supple Cardiac: Positive: Reg Rate and Rhythm Lungs: Positive: Decreased Breath Sounds Neuro: Positive: Grossly Intact Abdomen: Positive: Unremarkable, Soft Skin: Positive: Clear Extremities: Present: normal. Absent: edema - Labs and Meds Cardiac Enzymes 09/18/21 09/18/21 Range/Units 04:00 05:00 AST 139 H (5-40) units/L Lactate Dehydrogenase 857 H (91-180) units/L CBC 09/18/21 Range/Units 04:00 WBC 16.8 H (4.5-11.0) K/mm3 RBC 3.87 (3.65-5.03) M/mm3 Hgb 11.5 L (11.8-15.2) gm/dl Hct 36.2 (35.5-45.6) % Plt Count 198 (140-440) K/mm3 Comprehensive Metabolic Panel 09/18/21 09/18/21 Range/Units 04:00 05:00 Sodium 145 146 H (137-145) mmol/L Potassium 3.9 3.8 (3.6-5.0) mmol/L Chloride 107.1 H 107.4 H (98-107) mmol/L Carbon Dioxide 24 24 (22-30) mmol/L BUN 29 H 28 H (9-20) mg/dL Creatinine 0.9 0.9 (0.8-1.3) mg/dL Glucose 110 H 111 H (75-100) mg/dL Calcium 8.5 8.6 (8.4-10.2) mg/dL AST 139 H (5-40) units/L ALT 141 H (7-56) units/L Alkaline Phosphatase 65 (35-129) units/L Total Protein 6.3 (6.3-8.2) g/dL Albumin 3.6 L (3.9-5) g/dL - Imaging and Cardiology EKG: report reviewed (ST nabeelion )
[2021-09-18] MEDS ORDERED: MELATONIN 5 MG TAB PO PRN (10:31)
[2021-09-18] MEDS ORDERED: LORazepam 2 MG/ML VIAL IV SCH (13:00)
--- NOTE | 2021-09-18 14:34 | Progress Note ---
<RADHA TAYLOR - Last Filed: 09/18/21 14:26> Assessment and Plan Assessment and plan: This is a 41-year-old male admitted with post cardiac arrest with ROSC 2/2 STEMI s/p emergent PCI in [facility] Hospital Course to Date: This is a 41-year-old male without significant medical history who presented to the emergency department on 09/14/2021 in cardiac arrest after being noted that he started "jerking and his eyes rolled back" in the backseat of his car. She pulled into the ambulance bay and an EMS personnel in the [place] started CPR and found the patient with agonal breathing. ACLS was started in the emergency department and he was noted to be in V. fib, receivedseveral shocks and was given amiodarone and lidocaine. He was also intubated during this time and received a femoral line. Work-up in the emergency department included ECG which showed hyperacute T waves and cardiology was consulted. Patient was taken emergently to the cardiac [facility] where it was noted that he had a complete o cclusion of the LAD and had a successful angioplasty. He also had severe hypokalemia which was treated, elevated D-dimer, metabolic acidosis and acute kidney injury. Patient was admitted to the hospitalist service s/p cardiac arrest, STEMI, acute kidney injury, acute hypoxic respiratory failure with consults to cardiology and [facility]. 09/15: Patient had a CTA and CT head today, remains on the ventilator. Continues amiodarone and heparin drip. Received 1 L LR bolus for ALLISON. Started on bolus feeding. COVID-19 PCR positive. 09/16: Patient self-extubated this am, now stable on 2LNC. Patient with periods of disorientation, otherwise awake and alert. Rafiq temp overnight, orders placed for blood cultures. Continue current IV ABx, ID consult pending. Given worsening Ddimer will also r/o DVT, BLE doppler ordered.. D/w CCM patient is stable for transfer to the floor. 09/17: Patient is on RA this am, fully AAO. CT head noted, with no acute abnormality. Pending speech swallow eval. Low K repleted, repeat labs in the am. 09/18: Patient remains stable on RA. Conference call this am at the bedside with patient's and the attending. Both patient and were updated on patient's status. C/f possible short term memory loss, recent CT head noted with no acute abnormalities, will order MRI for further eval. Assessment and Plan #Neuro:Anxiety -AAO, c/f short term memory loss -CT head shows no acute abnormality -repeat CT head was unchanged -Will order MRI for further eval -Neuro consult pending -Avoid benzodiazepine to reduce the possibility of delirium -Reorientation as needed -Prn analgesia for CPOT greater than 3 -Maintenance of sleep-wake cycle -Melatonin added qHS #Cardiac:Severe Cardiomyopathy #STEMI s/p PCI #s/p VFib arrest with ROSC -Presented with vfib arrest, shocked mulitple times before ROSC acheived -09/14 s/p Emergent Caridac Cath which showed 100% occlusion of the LAD X2 Stents -S/p Amio gtt -SR to ST on the monitor this am -09/14 Echocardiogram- EF 20% with severe dilated cardiomyopathy. -Cardiology on consult, appreciated recommendations -Cardio rec medical management with LifeVest monitoring on discharge. -Continue blood pressure monitor per protocol -Maintain MAP above 65 -Continue Aspirin, plavix, & lipitor -Continue AC- Heparin SubQ -Lipid panel noted in chart #Respiratory: Acute respiratory failure #COVID Pneumonia -Intubated on 09/14 during code -Self-Extubated this am 09/16 -On RA this am, SPO2 above 95% -O2 supplementation as needed -CCM consulted, appreciate recommendations -VAP bundle addressed -Aspiration precaution HOB above 30 -Continue O2 supplementation and SPO2 monitoring for SPO2 goal above 95% #GI: Transaminitis -Elevated LFTs most likely reactive post code -CTA chest shows diffuse thickening throughout the colon and fluid surrounding the gallbladder fossa and gallbladder -Continue to trend LFTs -Patient failed bedside swallow eval -Pass Speech swallow eval -Patient is tolerating diet -Continue PPI-Pepcid -BR: senna #: Acute kidney injury secondary likely ATN #Hyperkalemia-resolved #Metabolic acidosis -Most likely due to code, hypoperfusion -SCr. normalized -Strict intake and output -Avoid nephrotoxic medications; Renally dose medications -Alvarado in place -Monitor and replace electrolytes as needed #ID:COVID Pneumonia #Leukocytosis -Patient COVID swab came back positive -CTA chest shows bilateral lower lobe infiltrates with opacities -Leukocytosis downtrending -Patient afebrile overnight -Blood culture pending -Infectious disease consulted -Continue IV Abx per ID -Procal pending -Per ID if procalcitonin <0.25 ng/mL stop antibiotics. If not okay to discharge with Omnicef 300 mg every 12 hours to complete a full course. -Droplet/contact precautions -Continue IV Steroids -Vitamin C, vitamin D, zinc -Trend COVID-19 inflammatory markers -Monitor WBC and temperature curve -Trend CBC #Endo:Glycemic Control -Continue SSI Q6hrs wile NPO/TF -Avoid Hypoglycemia #DVT Prophylaxis -Continue AC- Heparin SubQ -SCDs to bilateral lower extremities while in bed The high probability of a clinically significant, sudden or life threatening deterioration of the [Neuro] system(s) required my full and direct attention, intervention and personal management. The aggregate critical care time was [40] minutes. This time is in addition to time spent performing reported procedures but includes the following: [x] Data Review and interpretation [x] Patient assessment and monitoring of vital signs [x] Documentation [x] Medication orders and management Disposition Plan: ICU Total Time Spent with Patient (Minutes): 40 History Interval history: Patient seen and examined at the bedside. Remains AAO and on RA SPO2. D/w patient and his over the phone concern for short term memory loss and lack of sleep. Otherwise no acute events overnight Hospitalist Physical - Constitutional Vitals: Temp Pulse Resp BP Pulse Ox 97.9 F 78 28 H 125/79 97 09/18/21 12:10 09/18/21 12:00 09/18/21 12:00 09/18/21 12:00 09/18/21 12:00 General appearance: Present: no acute distress, well-nourished - EENT Eyes: Present: PERRL, EOM intact ENT: hearing intact, clear oral mucosa - Neck Neck: Present: normal ROM - Respiratory Respiratory effort: normal Respiratory: bilateral: diminished - Cardiovascular Rhythm: regular Heart Sounds: Present: S1 & S2 - Extremities Extremities: no ischemia, pulses intact, pulses symmetrical Peripheral Pulses: within normal limits - Abdominal General gastrointestinal: soft, non-tender, normal bowel sounds - Integumentary Integumentary: Present: warm, dry - Psychiatric Psychiatric: appropriate mood/affect, cooperative - Neurologic Neurologic: CNII-XII intact, moves all extremities, other (c/f short term memory loss) - Allied Health Allied health notes reviewed: nursing HEART Score - HEART Score Age: < 45 Risk factors: 1-2 risk factors Troponin: Troponin T 12.440 ng/mL (0.00-0.029) H* D 09/15/21 03:36 Troponin: 1-3x normal limit - Critical Actions Critical Actions: >7 pts:50-65% risk of adverse cardiac event. Early invasive measures Results - Labs CBC & Chem 7: 09/18/21 04:00 09/18/21 05:00 Labs: Laboratory Last Values WBC 16.8 K/mm3 (4.5-11.0) H 09/18/21 04:00 RBC 3.87 M/mm3 (3.65-5.03) 09/18/21 04:00 Hgb 11.5 gm/dl (11.8-15.2) L 09/18/21 04:00 Hct 36.2 % (35.5-45.6) 09/18/21 04:00 MCV 94 fl (84-94) 09/18/21 04:00 MCH 30 pg (28-32) 09/18/21 04:00 MCHC 32 % (32-34) 09/18/21 04:00 RDW 12.7 % (13.2-15.2) L 09/18/21 04:00 Plt Count 198 K/mm3 (140-440) 09/18/21 04:00 Lymph % (Auto) 46.5 % (13.4-35.0) H 09/14/21 15:35 Crook % (Auto) 6.6 % (0.0-7.3) 09/14/21 15:35 Eos % (Auto) 1.1 % (0.0-4.3) 09/14/21 15:35 Baso % (Auto) 0.6 % (0.0-1.8) 09/14/21 15:35 Lymph # (Auto) 2.9 K/mm3 (1.2-5.4) 09/14/21 15:35 [place] # (Auto) 0.4 K/mm3 (0.0-0.8) 09/14/21 15:35 Eos # (Auto) 0.1 K/mm3 (0.0-0.4) 09/14/21 15:35 Baso # (Auto) 0.0 K/mm3 (0.0-0.1) 09/14/21 15:35 Add Manual Diff Complete 09/15/21 00:08 Total Counted 100 09/15/21 00:08 Seg Neutrophils % 45.2 % (40.0-70.0) 09/14/21 15:35 Seg Neuts % (Manual) 89.0 % (40.0-70.0) H 09/15/21 00:08 Band Neutrophils % 3.0 % 09/15/21 00:08 Lymphocytes % (Manual) 3.0 % (13.4-35.0) L 09/15/21 00:08 Monocytes % (Manual) 5.0 % (0.0-7.3) 09/15/21 00:08 Nucleated RBC % Not Reportable 09/15/21 00:08 Seg Neutrophils # 2.8 K/mm3 (1.8-7.7) 09/14/21 15:35 Seg Neutrophils # Man 14.4 K/mm3 (1.8-7.7) H 09/15/21 00:08 Band Neutrophils # 0.5 K/mm3 09/15/21 00:08 Lymphocytes # (Manual) 0.5 K/mm3 (1.2-5.4) L 09/15/21 00:08 Abs React Lymphs (Man) 0.0 K/mm3 09/15/21 00:08 Monocytes # (Manual) 0.8 K/mm3 (0.0-0.8) 09/15/21 00:08 Eosinophils # (Manual) 0.0 K/mm3 (0.0-0.4) 09/15/21 00:08 Basophils # (Manual) 0.0 K/mm3 (0.0-0.1) 09/15/21 00:08 Metamyelocytes # 0.0 K/mm3 09/15/21 00:08 Myelocytes # 0.0 K/mm3 09/15/21 00:08 Promyelocytes # 0.0 K/mm3 09/15/21 00:08 Blast Cells # 0.0 K/mm3 09/15/21 00:08 WBC Morphology Not Reportable 09/15/21 00:08 Hypersegmented Neuts Not Reportable 09/15/21 00:08 Hyposegmented Neuts Not Reportable 09/15/21 00:08 Hypogranular Neuts Not Reportable 09/15/21 00:08 Smudge Cells Not Reportable 09/15/21 00:08 Toxic Granulation Not Reportable 09/15/21 00:08 Toxic Vacuolation Not Reportable 09/15/21 00:08 Dohle Bodies Not Reportable 09/15/21 00:08 Pelger-Huet Anomaly Not Reportable 09/15/21 00:08 Sarwat Rods Not Reportable 09/15/21 00:08 Platelet Estimate Consistent w auto 09/15/21 00:08 Clumped Platelets Not Reportable 09/15/21 00:08 Plt Clumps, EDTA Not Reportable 09/15/21 00:08 Large Platelets Not Reportable 09/15/21 00:08 Giant Platelets Not Reportable 09/15/21 00:08 Platelet Satelliting Not Reportable 09/15/21 00:08 Plt Morphology Comment Not Reportable 09/15/21 00:08 RBC Morphology Normal 09/15/21 00:08 Dimorphic RBCs Not Reportable 09/15/21 00:08 Polychromasia Not Reportable 09/15/21 00:08 Hypochromasia Not Reportable 09/15/21 00:08 Poikilocytosis Not Reportable 09/15/21 00:08 Anisocytosis Not Reportable 09/15/21 00:08 Microcytosis Not Reportable 09/15/21 00:08 Macrocytosis Not Reportable 09/15/21 00:08 Spherocytes Not Reportable 09/15/21 00:08 Pappenheimer Bodies Not Reportable 09/15/21 00:08 Sickle Cells Not Reportable 09/15/21 00:08 Target Cells Not Reportable 09/15/21 00:08 Tear Drop Cells Not Reportable 09/15/21 00:08 Ovalocytes Not Reportable 09/15/21 00:08 Helmet Cells Not Reportable 09/15/21 00:08 [place] Bodies Not Reportable 09/15/21 00:08 [place] Rings Not Reportable 09/15/21 00:08 [place] Cells Not Reportable 09/15/21 00:08 Bite Cells Not Reportable 09/15/21 00:08 Crenated Cell Not Reportable 09/15/21 00:08 Elliptocytes Not Reportable 09/15/21 00:08 Acanthocytes (Spur) Not Reportable 09/15/21 00:08 Rouleaux Not Reportable 09/15/21 00:08 Hemoglobin C Crystals Not Reportable 09/15/21 00:08 Schistocytes Not Reportable 09/15/21 00:08 Malaria parasites Not Reportable 09/15/21 00:08 Alejandro Bodies Not Reportable 09/15/21 00:08 Hem Pathologist Commnt No 09/15/21 00:08 PT 16.4 Sec. (12.2-14.9) H 09/14/21 15:35 INR 1.19 (0.87-1.13) H 09/14/21 15:35 APTT 26.6 Sec. (24.2-36.6) 09/14/21 15:35 D-Dimer 2074.63 ng/mlDDU (0-234) H 09/18/21 04:00 ABG pH 7.501 (7.320-7.450) H 09/16/21 04:09 POC ABG pCO2 30.5 mmHg (32.0-48.0) L 09/16/21 04:09 ABG pCO2 42.6 mm Hg 09/14/21 16:30 POC ABG pO2 148.3 mmHg (83-108) H 09/16/21 04:09 ABG pO2 376.5 mm Hg (80.0-90.0) H 09/14/21 16:30 POC ABG HCO3 23.3 09/16/21 04:09 ABG HCO3 19.7 mmol/L (20.0-26.0) L 09/14/21 16:30 ABG O2 Saturation 99.4 (0-100) 09/16/21 04:09 ABG O2 Content 21.0 (0.0-44) 09/14/21 16:30 POC ABG Base Excess 1.1 09/16/21 04:09 ABG Base Excess -6.7 mmol/L (-2.0-3.0) L 09/14/21 16:30 ABG Hemoglobin 14.5 (12.0-17.5) 09/16/21 04:09 ABG Oxyhemoglobin 98.7 (94-98) H 09/16/21 04:09 ABG Carboxyhemoglobin 1.1 % (0.0-5.0) 09/14/21 16:30 ABG Methemoglobin 0.2 (0.0-1.5) 09/16/21 04:09 ABG Sodium 136.7 mmol/L (136.0-145.0) 09/16/21 04:09 ABG Potassium 3.3 mmol/L (3.40-4.50) L 09/16/21 04:09 ABG Chloride 104.0 mmol/L (98-107) 09/16/21 04:09 ABG Glucose 130 mg/dL (65-95) H 09/16/21 04:09 Oxyhemoglobin 97.8 % (95.0-99.0) 09/14/21 16:30 Carboxyhemoglobin 0.5 (0.5-1.5) 09/16/21 04:09 FiO2 100 % 09/14/21 16:30 FiO2 % 35.0 09/16/21 04:09 Sodium 146 mmol/L (137-145) H 09/18/21 05:00 Potassium 3.8 mmol/L (3.6-5.0) 09/18/21 05:00 Chloride 107.4 mmol/L (98-107) H 09/18/21 05:00 Carbon Dioxide 24 mmol/L (22-30) 09/18/21 05:00 Anion Gap 18 mmol/L 09/18/21 05:00 BUN 28 mg/dL (9-20) H 09/18/21 05:00 Creatinine 0.9 mg/dL (0.8-1.3) 09/18/21 05:00 Estimated GFR > 60 ml/min 09/18/21 05:00 BUN/Creatinine Ratio 31 % 09/18/21 05:00 Glucose 111 mg/dL (75-100) H 09/18/21 05:00 POC Glucose 134 mg/dL (70-105) H 09/18/21 12:01 Hemoglobin A1c 5.8 % (4-6) 09/15/21 17:39 Calcium 8.6 mg/dL (8.4-10.2) 09/18/21 05:00 Phosphorus 2.70 mg/dL (2.5-4.5) 09/18/21 04:00 Magnesium 2.10 mg/dL (1.7-2.3) 09/18/21 04:00 Ferritin 311.4 ng/mL (30.0-300.0) H 09/18/21 04:00 Total Bilirubin 0.30 mg/dL (0.1-1.2) 09/18/21 05:00 Direct Bilirubin < 0.2 mg/dL (0-0.2) 09/14/21 15:35 Indirect Bilirubin 0.1 mg/dL 09/14/21 15:35 AST 139 units/L (5-40) H 09/18/21 05:00 ALT 141 units/L (7-56) H 09/18/21 05:00 Alkaline Phosphatase 65 units/L (35-129) 09/18/21 05:00 Lactate Dehydrogenase 857 units/L (91-180) H 09/18/21 04:00 Troponin T 12.440 ng/mL (0.00-0.029) H* D 09/15/21 03:36 C-Reactive Protein 5.50 mg/dL (0.00-1.30) H 09/18/21 04:00 Total Protein 6.3 g/dL (6.3-8.2) 09/18/21 05:00 Albumin 3.6 g/dL (3.9-5) L 09/18/21 05:00 Albumin/Globulin Ratio 1.3 % 09/18/21 05:00 Triglycerides 110 mg/dL (2-149) 09/14/21 20:33 Cholesterol 213 mg/dL (50-199) H 09/14/21 20:33 LDL Cholesterol Direct 134 mg/dL (50-130) H 09/14/21 20:33 HDL Cholesterol 67 mg/dL (40-59) H 09/14/21 20:33 Cholesterol/HDL Ratio 3.17 % 09/14/21 20:33 Arterial Blood Glucose 130 mg/dL (65-95) H 09/16/21 04:09 Arterial Blood Ionized Calcium 4.5 mg/dL (4.6-5.3) L 09/16/21 04:09 Urine Color Yellow (Yellow) 09/14/21 Unknown Urine Turbidity Slightly-cloudy (Clear) 09/14/21 Unknown Urine pH 6.0 (5.0-7.0) 09/14/21 Unknown Ur Specific [place] 1.028 (1.003-1.030) 09/14/21 Unknown Urine Protein 100 mg/dl mg/dL (Negative) 09/14/21 Unknown Urine Glucose (UA) Neg mg/dL (Negative) 09/14/21 Unknown Urine Ketones Tr mg/dL (Negative) 09/14/21 Unknown Urine Blood Neg (Negative) 09/14/21 Unknown Urine Nitrite Neg (Negative) 09/14/21 Unknown Ur Reducing Substances Not Reportable 09/14/21 Unknown Urine Bilirubin Neg (Negative) 09/14/21 Unknown Urine Ictotest Not Reportable 09/14/21 Unknown Urine Urobilinogen < 2.0 mg/dL (<2.0) 09/14/21 Unknown Ur Leukocyte Esterase Sm (Negative) 09/14/21 Unknown Urine WBC (Auto) 50.0 /HPF (0.0-6.0) H 09/14/21 Unknown Urine RBC (Auto) 12.0 /HPF (0.0-6.0) 09/14/21 Unknown U Epithel Cells (Auto) < 1.0 /HPF (0-13.0) 09/14/21 Unknown Urine Bacteria (Auto) 2+ /HPF (Negative) 09/14/21 Unknown Urine Mucus 3+ /HPF 09/14/21 Unknown Urine Yeast (Budding) Few /HPF 09/14/21 Unknown Urine Osmolality 1005 Mosm/kg 09/15/21 09:46 Urine Creatinine 187.8 mg/dL (0.1-20.0) H 09/15/21 09:46 Urine Sodium 87 mmol/L 09/15/21 09:46 Urine Urea Nitrogen 1272 09/15/21 09:46 Salicylates < 0.3 mg/dL (2.8-20.0) L 09/14/21 15:35 Urine Opiates Screen Negative 09/14/21 Unknown Urine Methadone Screen Negative 09/14/21 Unknown Acetaminophen 5.0 ug/mL (10.0-30.0) L 09/14/21 15:35 Ur Barbiturates Screen Negative 09/14/21 Unknown Ur Phencyclidine Scrn Negative 09/14/21 Unknown Ur Amphetamines Screen Negative 09/14/21 Unknown U Benzodiazepines Scrn Negative 09/14/21 Unknown Urine Cocaine Screen Negative 09/14/21 Unknown U Marijuana (THC) Screen Positive 09/14/21 Unknown Drugs of Abuse Note Disclamer 09/14/21 Unknown Coronavirus (PCR) Positive (Negative) A 09/15/21 Unknown Microbiology: Microbiology 09/14/21 17:25 Tracheal Aspirate Sputum Culture - Final 09/16/21 08:25 Peripheral/Venous Blood Culture - Preliminary NO GROWTH AFTER 48 HOURS 09/16/21 08:25 Peripheral/Venous Blood Culture - Preliminary NO GROWTH AFTER 48 HOURS Alvarado/IV: Voiding Method Urinal Active Medications - Current Medications Current Medications: Generic Name Dose Route Start Last Admin Trade Name Freq PRN Reason Stop Dose Admin Acetaminophen 650 mg 09/14/21 18:53 Acetaminophen 325 Mg Tab PO Q4H PRN Pain MILD(1-3)/Fever >100.5/BHATIA Hydrocodone Bitart/Acetaminophen 1 each 09/14/21 18:05 Hydrocodone/Acetaminophen 5-325 Mg Tab PO Q6H PRN Pain, Moderate (4-6) Lipase/Protease/Amylase 1 each 09/15/21 09:22 Lipase 10,500/Protease 25,000/Amylase 43,750 (Units) Dr Ortega FEEDTUBE PRN PRN For Clogged Feeding Tube Ascorbic Acid 500 mg 09/16/21 10:00 09/18/21 09:46 Ascorbic Acid 500 Mg Tab PO 500 mg QDAY CASSANDRA Administration Aspirin 162 mg 09/15/21 10:00 09/18/21 09:46 Aspirin 81 Mg Tab Chew FEEDTUBE 162 mg QDAY CASSANDRA Administration Atorvastatin Calcium 40 mg 09/15/21 08:13 09/17/21 21:37 Atorvastatin 40 Mg Tab FEEDTUBE 40 mg QHS CASSANDRA Administration Cholecalciferol 5,000 unit 09/16/21 10:00 09/18/21 09:46 Cholecalciferol (Vit D3) 5,000 Unit Tab PO 5,000 unit DAILY CASSANDRA Administration Clopidogrel Bisulfate 75 mg 09/15/21 10:00 09/18/21 09:46 Clopidogrel 75 Mg Tab FEEDTUBE 75 mg QDAY CASSANDRA Administration Dexamethasone 6 mg 09/16/21 11:00 09/18/21 09:45 Dexamethasone 4 Mg/Ml Vial IV 09/25/21 10:01 6 mg Q24HR CASSANDRA Administration Dextrose 50 ml 09/15/21 16:49 Dextrose 50% In Water (25gm) 50 Ml Syringe IV Q30MIN PRN Hypoglycemia Protocol Famotidine 20 mg 09/15/21 10:00 09/18/21 09:46 Famotidine 20 Mg Tab FEEDTUBE 20 mg BID CASSANDRA Administration Heparin Sodium (Porcine) 5,000 unit 09/14/21 22:00 09/18/21 09:45 Heparin 5,000 Unit/1 Ml Vial SUB-Q 5,000 unit Q12HR CASSANDRA Administration Ceftriaxone Sodium 2 gm in 100 mls @ 200 mls/hr 09/15/21 17:00 09/17/21 19:55 Rocephin/Ns 2 Gm/100 Ml IV 09/19/21 17:29 200 mls/hr Q24H CASSANDRA Administration Protocol REMDESIVIR 100 mg/ Sodium 250 mls @ 500 mls/hr 09/17/21 21:00 09/17/21 21:36 Chloride IV 09/20/21 21:29 500 mls/hr Q24HR@2100 [facility] Administration Insulin Human Lispro 0 unit 09/17/21 22:00 09/18/21 12:17 Insulin Lispro 100 Unit/Ml SUB-Q Not Given ACHS [facility] Protocol Lisinopril 5 mg 09/15/21 10:00 09/18/21 09:56 Lisinopril 5 Mg Tab PO 5 mg QDAY [facility] Administration Lorazepam 1 mg 09/18/21 13:00 Lorazepam 2 Mg/Ml Vial IV 09/18/21 23:59 ONCE@1300 [facility] Melatonin 5 mg 09/18/21 10:31 09/18/21 10:35 Melatonin 5 Mg Tab PO 5 mg QHS PRN Administration Sleep Metoclopramide HCl 10 mg 09/14/21 18:53 Metoclopramide 10 Mg/2 Ml Inj IV Q6H PRN Nausea And Vomiting Metoprolol Tartrate 50 mg 09/15/21 08:13 09/18/21 09:57 Metoprolol Tartrate 50 Mg Tab FEEDTUBE 50 mg BID CASSANDRA Administration Nitroglycerin 0.4 mg 09/15/21 06:00 09/18/21 06:10 Nitroglycerin 0.4 Mg Patch 24hr TD 0.4 mg DAILY@0600 [facility] Administration Ondansetron HCl 4 mg 09/14/21 18:53 Ondansetron 4 Mg/2 Ml Inj IV Q8H PRN Nausea And Vomiting Oxycodone/Acetaminophen 1 tab 09/14/21 18:53 Oxycodone /Acetaminophen 5-325mg Tab PO Q6H PRN Pain, Moderate (4-6) Senna 8.8 mg 09/15/21 22:00 09/17/21 21:37 Sennosides Oral Liqd 8.8 Mg/5 Ml Oral Liqd PO 8.8 mg QHS CASSANDRA Administration Simple Syrup 15 ml 09/15/21 09:22 Simple Syrup 15 Ml FEEDTUBE PRN PRN Hypoglycemia Simple Syrup 30 ml 09/15/21 09:22 Simple Syrup 15 Ml FEEDTUBE PRN PRN Hypoglycemia Sodium Bicarbonate 325 mg 09/15/21 09:22 Sodium Bicarbonate 325 Mg Tab FEEDTUBE PRN PRN For Clogged Feeding Tube Sodium Chloride 10 ml 09/14/21 22:00 09/18/21 09:46 Sodium Chloride 0.9% 10 Ml Flush Syringe IV 10 ml BID CASSANDRA Administration Sodium Chloride 10 ml 09/14/21 18:53 Sodium Chloride 0.9% 10 Ml Flush Syringe IV PRN PRN LINE FLUSH Sodium Chloride 50 ml 09/16/21 11:30 09/17/21 21:37 Sodium Chloride 0.9% 50 Ml Ivpb IV 09/20/21 21:01 50 ml Q24HR@2100 CASSANDRA Administration Zinc Sulfate 220 mg 09/15/21 22:00 09/18/21 09:46 Zinc Sulfate 220 Mg Cap PO 220 mg BID CASSANDRA Administration Nutrition/Malnutrition Assess - Dietary Evaluation Nutrition/Malnutrition Findings: Nutrition Notes Start: 09/15/21 09:13 Freq: Status: Active Protocol: Document 09/15/21 09:13 (Rec: 09/15/21 09:22 [email or web address]) Nutrition Notes Need for Assessment generated from: MD Order Initial or Follow up Assessment Other Pertinent Diagnosis STEMI, cardiac arrest, hypokalemia Current Diet No diet Labs/Tests K 5.1 BG 182 09/14: Cholesterol 213 LDL 134 HLD 67 Pertinent Medications Propofol at 13.32 ml/hr (352 kcal) 09/14: 40 mEq KCl Height 5 ft 7 in Weight 74 kg [place] Body Weight (kg) 67.27 BMI 25.5 Weight Status Appropriate Subjective/Other Information consult for TF. Pt on vent. NGT to LIS at this time. Burn Absent Trauma Absent GI Symptoms Vomiting,Diarrhea Current % PO Negligible Minimum of two criteria No #1 Nutrition Diagnosis Inadequate oral intake Etiology cardiac arrest As Evidenced by Signs and Symptoms pt on vent and unable to consume PO, NGT to LIS Is patient on ventilator? Yes Is Patient Ambulatory and/or Out of Bed No REE-(Dwight Reed-confined to bed) 1921.500 Calculation Used for Recommendations [facility] Additional Notes Protein: (1.2-2/kg) 89-148g Fluid: 1 ml/kcal or per MD Nutrition Intervention Change Diet Order: Start TF as medically able Nutrition Support: Vital AF 1.2 at 65 ml/hr Flush 100 ml q4h or per MD Kcal 1,872 Protein (gm) 117 Fluid (mL) 1,265 Goal #1 Start TF Anticipated Discharge Needs: Unable to determine at this time Follow-Up By: 09/17/21 Additional Comments F/U: TF start <ROSALIE SHARMA - Last Filed: 09/19/21 07:13> Assessment and Plan Assessment and plan: I saw and evaluated the patient. I agree with the findings and the plan of care as documented in the Nurse Practitioner's~note, with the following corrections and additions. Hospitalist Physical - Constitutional Vitals: Temp Pulse Resp BP Pulse Ox 98.3 F 89 18 129/87 99 09/19/21 04:00 09/19/21 00:00 09/19/21 00:00 09/18/21 22:00 09/19/21 00:00 HEART Score - HEART Score Troponin: Troponin T 12.440 ng/mL (0.00-0.029) H* D 09/15/21 03:36 Results - Labs CBC & Chem 7: 09/19/21 04:28 09/19/21 04:28 Labs: Laboratory Last Values WBC 12.8 K/mm3 (4.5-11.0) H 09/19/21 04:28 RBC 3.97 M/mm3 (3.65-5.03) 09/19/21 04:28 Hgb 12.1 gm/dl (11.8-15.2) 09/19/21 04:28 Hct 37.2 % (35.5-45.6) 09/19/21 04:28 MCV 94 fl (84-94) 09/19/21 04:28 MCH 31 pg (28-32) 09/19/21 04:28 MCHC 33 % (32-34) 09/19/21 04:28 RDW 12.6 % (13.2-15.2) L 09/19/21 04:28 Plt Count 193 K/mm3 (140-440) 09/19/21 04:28 Lymph % (Auto) 46.5 % (13.4-35.0) H 09/14/21 15:35 [place] % (Auto) 6.6 % (0.0-7.3) 09/14/21 15:35 Eos % (Auto) 1.1 % (0.0-4.3) 09/14/21 15:35 Baso % (Auto) 0.6 % (0.0-1.8) 09/14/21 15:35 Lymph # (Auto) 2.9 K/mm3 (1.2-5.4) 09/14/21 15:35 Crook # (Auto) 0.4 K/mm3 (0.0-0.8) 09/14/21 15:35 Eos # (Auto) 0.1 K/mm3 (0.0-0.4) 09/14/21 15:35 Baso # (Auto) 0.0 K/mm3 (0.0-0.1) 09/14/21 15:35 Add Manual Diff Complete 09/15/21 00:08 Total Counted 100 09/15/21 00:08 Seg Neutrophils % 45.2 % (40.0-70.0) 09/14/21 15:35 Seg Neuts % (Manual) 89.0 % (40.0-70.0) H 09/15/21 00:08 Band Neutrophils % 3.0 % 09/15/21 00:08 Lymphocytes % (Manual) 3.0 % (13.4-35.0) L 09/15/21 00:08 Monocytes % (Manual) 5.0 % (0.0-7.3) 09/15/21 00:08 Nucleated RBC % Not Reportable 09/15/21 00:08 Seg Neutrophils # 2.8 K/mm3 (1.8-7.7) 09/14/21 15:35 Seg Neutrophils # Man 14.4 K/mm3 (1.8-7.7) H 09/15/21 00:08 Band Neutrophils # 0.5 K/mm3 09/15/21 00:08 Lymphocytes # (Manual) 0.5 K/mm3 (1.2-5.4) L 09/15/21 00:08 Abs React Lymphs (Man) 0.0 K/mm3 09/15/21 00:08 Monocytes # (Manual) 0.8 K/mm3 (0.0-0.8) 09/15/21 00:08 Eosinophils # (Manual) 0.0 K/mm3 (0.0-0.4) 09/15/21 00:08 Basophils # (Manual) 0.0 K/mm3 (0.0-0.1) 09/15/21 00:08 Metamyelocytes # 0.0 K/mm3 09/15/21 00:08 Myelocytes # 0.0 K/mm3 09/15/21 00:08 Promyelocytes # 0.0 K/mm3 09/15/21 00:08 Blast Cells # 0.0 K/mm3 09/15/21 00:08 WBC Morphology Not Reportable 09/15/21 00:08 Hypersegmented Neuts Not Reportable 09/15/21 00:08 Hyposegmented Neuts Not Reportable 09/15/21 00:08 Hypogranular Neuts Not Reportable 09/15/21 00:08 Smudge Cells Not Reportable 09/15/21 00:08 Toxic Granulation Not Reportable 09/15/21 00:08 Toxic Vacuolation Not Reportable 09/15/21 00:08 Dohle Bodies Not Reportable 09/15/21 00:08 Pelger-Huet Anomaly Not Reportable 09/15/21 00:08 Sarwat Rods Not Reportable 09/15/21 00:08 Platelet Estimate Consistent w auto 09/15/21 00:08 Clumped Platelets Not Reportable 09/15/21 00:08 Plt Clumps, EDTA Not Reportable 09/15/21 00:08 Large Platelets Not Reportable 09/15/21 00:08 Giant Platelets Not Reportable 09/15/21 00:08 Platelet Satelliting Not Reportable 09/15/21 00:08 Plt Morphology Comment Not Reportable 09/15/21 00:08 RBC Morphology Normal 09/15/21 00:08 Dimorphic RBCs Not Reportable 09/15/21 00:08 Polychromasia Not Reportable 09/15/21 00:08 Hypochromasia Not Reportable 09/15/21 00:08 Poikilocytosis Not Reportable 09/15/21 00:08 Anisocytosis Not Reportable 09/15/21 00:08 Microcytosis Not Reportable 09/15/21 00:08 Macrocytosis Not Reportable 09/15/21 00:08 Spherocytes Not Reportable 09/15/21 00:08 Pappenheimer Bodies Not Reportable 09/15/21 00:08 Sickle Cells Not Reportable 09/15/21 00:08 Target Cells Not Reportable 09/15/21 00:08 Tear Drop Cells Not Reportable 09/15/21 00:08 Ovalocytes Not Reportable 09/15/21 00:08 Helmet Cells Not Reportable 09/15/21 00:08 [place] Bodies Not Reportable 09/15/21 00:08 [place] Rings Not Reportable 09/15/21 00:08 [place] Cells Not Reportable 09/15/21 00:08 Bite Cells Not Reportable 09/15/21 00:08 Crenated Cell Not Reportable 09/15/21 00:08 Elliptocytes Not Reportable 09/15/21 00:08 Acanthocytes (Spur) Not Reportable 09/15/21 00:08 Rouleaux Not Reportable 09/15/21 00:08 Hemoglobin C Crystals Not Reportable 09/15/21 00:08 Schistocytes Not Reportable 09/15/21 00:08 Malaria parasites Not Reportable 09/15/21 00:08 Alejandro Bodies Not Reportable 09/15/21 00:08 Hem Pathologist Commnt No 09/15/21 00:08 PT 16.4 Sec. (12.2-14.9) H 09/14/21 15:35 INR 1.19 (0.87-1.13) H 09/14/21 15:35 APTT 26.6 Sec. (24.2-36.6) 09/14/21 15:35 D-Dimer 2074.63 ng/mlDDU (0-234) H 09/18/21 04:00 ABG pH 7.501 (7.320-7.450) H 09/16/21 04:09 POC ABG pCO2 30.5 mmHg (32.0-48.0) L 09/16/21 04:09 ABG pCO2 42.6 mm Hg 09/14/21 16:30 POC ABG pO2 148.3 mmHg (83-108) H 09/16/21 04:09 ABG pO2 376.5 mm Hg (80.0-90.0) H 09/14/21 16:30 POC ABG HCO3 23.3 09/16/21 04:09 ABG HCO3 19.7 mmol/L (20.0-26.0) L 09/14/21 16:30 ABG O2 Saturation 99.4 (0-100) 09/16/21 04:09 ABG O2 Content 21.0 (0.0-44) 09/14/21 16:30 POC ABG Base Excess 1.1 09/16/21 04:09 ABG Base Excess -6.7 mmol/L (-2.0-3.0) L 09/14/21 16:30 ABG Hemoglobin 14.5 (12.0-17.5) 09/16/21 04:09 ABG Oxyhemoglobin 98.7 (94-98) H 09/16/21 04:09 ABG Carboxyhemoglobin 1.1 % (0.0-5.0) 09/14/21 16:30 ABG Methemoglobin 0.2 (0.0-1.5) 09/16/21 04:09 ABG Sodium 136.7 mmol/L (136.0-145.0) 09/16/21 04:09 ABG Potassium 3.3 mmol/L (3.40-4.50) L 09/16/21 04:09 ABG Chloride 104.0 mmol/L (98-107) 09/16/21 04:09 ABG Glucose 130 mg/dL (65-95) H 09/16/21 04:09 Oxyhemoglobin 97.8 % (95.0-99.0) 09/14/21 16:30 Carboxyhemoglobin 0.5 (0.5-1.5) 09/16/21 04:09 FiO2 100 % 09/14/21 16:30 FiO2 % 35.0 09/16/21 04:09 Sodium 144 mmol/L (137-145) 09/19/21 04:28 Potassium 4.0 mmol/L (3.6-5.0) 09/19/21 04:28 Chloride 106.0 mmol/L (98-107) 09/19/21 04:28 Carbon Dioxide 26 mmol/L (22-30) 09/19/21 04:28 Anion Gap 16 mmol/L 09/19/21 04:28 BUN 26 mg/dL (9-20) H 09/19/21 04:28 Creatinine 0.9 mg/dL (0.8-1.3) 09/19/21 04:28 Estimated GFR > 60 ml/min 09/19/21 04:28 BUN/Creatinine Ratio 29 % 09/19/21 04:28 Glucose 100 mg/dL (75-100) 09/19/21 04:28 POC Glucose 149 mg/dL (70-105) H 09/18/21 21:10 Hemoglobin A1c 5.8 % (4-6) 09/15/21 17:39 Calcium 8.6 mg/dL (8.4-10.2) 09/19/21 04:28 Phosphorus 2.70 mg/dL (2.5-4.5) 09/18/21 04:00 Magnesium 2.10 mg/dL (1.7-2.3) 09/18/21 04:00 Ferritin 311.4 ng/mL (30.0-300.0) H 09/18/21 04:00 Total Bilirubin 0.30 mg/dL (0.1-1.2) 09/19/21 04:28 Direct Bilirubin < 0.2 mg/dL (0-0.2) 09/14/21 15:35 Indirect Bilirubin 0.1 mg/dL 09/14/21 15:35 AST 86 units/L (5-40) H 09/19/21 04:28 ALT 130 units/L (7-56) H 09/19/21 04:28 Alkaline Phosphatase 65 units/L (35-129) 09/19/21 04:28 Lactate Dehydrogenase 857 units/L (91-180) H 09/18/21 04:00 Troponin T 12.440 ng/mL (0.00-0.029) H* D 09/15/21 03:36 C-Reactive Protein 5.50 mg/dL (0.00-1.30) H 09/18/21 04:00 Total Protein 6.3 g/dL (6.3-8.2) 09/19/21 04:28 Albumin 3.6 g/dL (3.9-5) L 09/19/21 04:28 Albumin/Globulin Ratio 1.3 % 09/19/21 04:28 Triglycerides 110 mg/dL (2-149) 09/14/21 20:33 Cholesterol 213 mg/dL (50-199) H 09/14/21 20:33 LDL Cholesterol Direct 134 mg/dL (50-130) H 09/14/21 20:33 HDL Cholesterol 67 mg/dL (40-59) H 09/14/21 20:33 Cholesterol/HDL Ratio 3.17 % 09/14/21 20:33 Arterial Blood Glucose 130 mg/dL (65-95) H 09/16/21 04:09 Arterial Blood Ionized Calcium 4.5 mg/dL (4.6-5.3) L 09/16/21 04:09 Urine Color Yellow (Yellow) 09/14/21 Unknown Urine Turbidity Slightly-cloudy (Clear) 09/14/21 Unknown Urine pH 6.0 (5.0-7.0) 09/14/21 Unknown Ur Specific [place] 1.028 (1.003-1.030) 09/14/21 Unknown Urine Protein 100 mg/dl mg/dL (Negative) 09/14/21 Unknown Urine Glucose (UA) Neg mg/dL (Negative) 09/14/21 Unknown Urine Ketones Tr mg/dL (Negative) 09/14/21 Unknown Urine Blood Neg (Negative) 09/14/21 Unknown Urine Nitrite Neg (Negative) 09/14/21 Unknown Ur Reducing Substances Not Reportable 09/14/21 Unknown Urine Bilirubin Neg (Negative) 09/14/21 Unknown Urine Ictotest Not Reportable 09/14/21 Unknown Urine Urobilinogen < 2.0 mg/dL (<2.0) 09/14/21 Unknown Ur Leukocyte Esterase Sm (Negative) 09/14/21 Unknown Urine WBC (Auto) 50.0 /HPF (0.0-6.0) H 09/14/21 Unknown Urine RBC (Auto) 12.0 /HPF (0.0-6.0) 09/14/21 Unknown U Epithel Cells (Auto) < 1.0 /HPF (0-13.0) 09/14/21 Unknown Urine Bacteria (Auto) 2+ /HPF (Negative) 09/14/21 Unknown Urine Mucus 3+ /HPF 09/14/21 Unknown Urine Yeast (Budding) Few /HPF 09/14/21 Unknown Urine Osmolality 1005 Mosm/kg 09/15/21 09:46 Urine Creatinine 187.8 mg/dL (0.1-20.0) H 09/15/21 09:46 Urine Sodium 87 mmol/L 09/15/21 09:46 Urine Urea Nitrogen 1272 09/15/21 09:46 Salicylates < 0.3 mg/dL (2.8-20.0) L 09/14/21 15:35 Urine Opiates Screen Negative 09/14/21 Unknown Urine Methadone Screen Negative 09/14/21 Unknown Acetaminophen 5.0 ug/mL (10.0-30.0) L 09/14/21 15:35 Ur Barbiturates Screen Negative 09/14/21 Unknown Ur Phencyclidine Scrn Negative 09/14/21 Unknown Ur Amphetamines Screen Negative 09/14/21 Unknown U Benzodiazepines Scrn Negative 09/14/21 Unknown Urine Cocaine Screen Negative 09/14/21 Unknown U Marijuana (THC) Screen Positive 09/14/21 Unknown Drugs of Abuse Note Disclamer 09/14/21 Unknown Coronavirus (PCR) Positive (Negative) A 09/15/21 Unknown Microbiology: Microbiology 09/14/21 17:25 Tracheal Aspirate Sputum Culture - Final 09/16/21 08:25 Peripheral/Venous Blood Culture - Preliminary NO GROWTH AFTER 48 HOURS 09/16/21 08:25 Peripheral/Venous Blood Culture - Preliminary NO GROWTH AFTER 48 HOURS Alvarado/IV: Voiding Method Urinal Active Medications - Current Medications Current Medications: Generic Name Dose Route Start Last Admin Trade Name Freq PRN Reason Stop Dose Admin Acetaminophen 650 mg 09/14/21 18:53 Acetaminophen 325 Mg Tab PO Q4H PRN Pain MILD(1-3)/Fever >100.5/BHATIA Hydrocodone Bitart/Acetaminophen 1 each 09/14/21 18:05 Hydrocodone/Acetaminophen 5-325 Mg Tab PO Q6H PRN Pain, Moderate (4-6) Ascorbic Acid 500 mg 09/16/21 10:00 09/18/21 09:46 Ascorbic Acid 500 Mg Tab PO 500 mg QDAY CASSANDRA Administration Aspirin 162 mg 09/15/21 10:00 09/18/21 09:46 Aspirin 81 Mg Tab Chew FEEDTUBE 162 mg QDAY CASSANDRA Administration Atorvastatin Calcium 40 mg 09/15/21 08:13 09/18/21 21:38 Atorvastatin 40 Mg Tab FEEDTUBE 40 mg QHS CASSANDRA Administration Cholecalciferol 5,000 unit 09/16/21 10:00 09/18/21 09:46 Cholecalciferol (Vit D3) 5,000 Unit Tab PO 5,000 unit DAILY CASSANDRA Administration Clopidogrel Bisulfate 75 mg 09/15/21 10:00 09/18/21 09:46 Clopidogrel 75 Mg Tab FEEDTUBE 75 mg QDAY CASSANDRA Administration Dexamethasone 6 mg 09/16/21 11:00 09/18/21 09:45 Dexamethasone 4 Mg/Ml Vial IV 09/25/21 10:01 6 mg Q24HR CASSANDRA Administration Dextrose 50 ml 09/15/21 16:49 Dextrose 50% In Water (25gm) 50 Ml Syringe IV Q30MIN PRN Hypoglycemia Protocol Famotidine 20 mg 09/15/21 10:00 09/18/21 21:38 Famotidine 20 Mg Tab FEEDTUBE 20 mg BID CASSANDRA Administration Heparin Sodium (Porcine) 5,000 unit 09/14/21 22:00 09/18/21 21:35 Heparin 5,000 Unit/1 Ml Vial SUB-Q 5,000 unit Q12HR CASSANDRA Administration Ceftriaxone Sodium 2 gm in 100 mls @ 200 mls/hr 09/15/21 17:00 09/19/21 05:23 Rocephin/Ns 2 Gm/100 Ml IV 09/19/21 17:29 Infused Q24H CASSANDRA Infusion Protocol REMDESIVIR 100 mg/ Sodium 250 mls @ 500 mls/hr 09/17/21 21:00 09/19/21 05:23 Chloride IV 09/20/21 21:29 Infused Q24HR@2100 CASSANDRA Infusion Insulin Human Lispro 0 unit 09/17/21 22:00 09/18/21 21:36 Insulin Lispro 100 Unit/Ml SUB-Q Not Given ACHS CASSANDRA Protocol Lisinopril 5 mg 09/15/21 10:00 09/18/21 09:56 Lisinopril 5 Mg Tab PO 5 mg QDAY CASSANDRA Administration Melatonin 5 mg 09/18/21 22:00 09/18/21 21:38 Melatonin 5 Mg Tab PO 5 mg QHS CASSANDRA Administration Metoclopramide HCl 10 mg 09/14/21 18:53 Metoclopramide 10 Mg/2 Ml Inj IV Q6H PRN Nausea And Vomiting Metoprolol Tartrate 50 mg 09/15/21 08:13 09/18/21 21:38 Metoprolol Tartrate 50 Mg Tab FEEDTUBE 50 mg BID CASSANDRA Administration Nitroglycerin 0.4 mg 09/15/21 06:00 09/18/21 06:10 Nitroglycerin 0.4 Mg Patch 24hr TD 0.4 mg DAILY@0600 CASSANDRA Administration Ondansetron HCl 4 mg 09/14/21 18:53 Ondansetron 4 Mg/2 Ml Inj IV Q8H PRN Nausea And Vomiting Oxycodone/Acetaminophen 1 tab 09/14/21 18:53 Oxycodone /Acetaminophen 5-325mg Tab PO Q6H PRN Pain, Moderate (4-6) Senna 8.8 mg 09/15/21 22:00 09/18/21 21:38 Sennosides Oral Liqd 8.8 Mg/5 Ml Oral Liqd PO Not Given QHS CASSANDRA Sodium Chloride 10 ml 09/14/21 22:00 09/18/21 21:35 Sodium Chloride 0.9% 10 Ml Flush Syringe IV 10 ml BID CASSANDRA Administration Sodium Chloride 10 ml 09/14/21 18:53 Sodium Chloride 0.9% 10 Ml Flush Syringe IV PRN PRN LINE FLUSH Sodium Chloride 50 ml 09/16/21 11:30 09/18/21 22:28 Sodium Chloride 0.9% 50 Ml Ivpb IV 09/20/21 21:01 50 ml Q24HR@2100 CASSANDRA Administration Zinc Sulfate 220 mg 09/15/21 22:00 09/18/21 21:39 Zinc Sulfate 220 Mg Cap PO 220 mg BID CASSANDRA Administration Nutrition/Malnutrition Assess - Dietary Evaluation Nutrition/Malnutrition Findings: Nutrition Notes Start: 09/15/21 09:13 Freq: Status: Active Protocol: Document 09/18/21 17:33 PATITO (Rec: 09/18/21 17:40 PATITO [id number]) Nutrition Notes Initial or Follow up Brief Note Current Diet Mechanical Soft Diet (since D 09/17). Height 5 ft 7 in Weight 74 kg [place] Body Weight (kg) 67.27 BMI 25.5 Weight change and time frame Pt reported to be unsure of having loss body weight [employer]. No body weight change reported in 3 days. Weight Status Appropriate Subjective/Other Information RD consult for routinr F/U on Dietary advancement. Pt now on PO diet. No report available on %PO intake of meals at the time. Percent of energy/protein needs met: Prescribed Mechanical Soft Diet provides for energy/ protein needs (2,048 Kcal/97 g ) during LOS. #1 Nutrition Diagnosis Inadequate oral intake Comments: Pt now on PO diet Diagnosis Progress(for reassessment Resolved documentation) Nutrition Intervention Follow-Up By: 09/25/21 Additional Comments Continue monitoring food tolerance, %PO intake of meals , and BM.
--- NOTE | 2021-09-18 16:45 | Magnetic Resonance Report ---
MRI BRAIN 09/18/2021 INDICATION / CLINICAL INFORMATION: Confusion/ Memory Loss. TECHNIQUE: Multiplanar, multisequence MR images of the brain were obtained. COMPARISON: None available. FINDINGS: BRAIN / INTRACRANIAL CONTENTS: Unenhanced MR images of the brain demonstrate no evidence of acute int racranial abnormality. Ventricles and sulci are normal in size and shape. There is no evidence of ischemic injury, demyelination, hemorrhage, or mass. There are no abnormal ex tra-axial fluid collections. EXTRACRANIAL: Unremarkable CRANIOCERVICAL JUNCTION: No significant abnormality. VASCULAR FLOW-VOIDS: No significant abnormality. IMPRESSION: No acute abnormality. Negative unenhanced MRI of the brain. Signer Name: Johny Moore MD Signed: 09/18/2021 4:40 PM Workstation Name: [id number]
[2021-09-18] MEDS: cefTRIAXone/NS 2 GM/100 ML 2 GM/100 ML BAG IV SCH (18:15)
[2021-09-18] MEDS: MELATONIN 5 MG TAB PO SCH (21:38)
[2021-09-18] MEDS: SENNOSIDES ORAL LIQD 8.8 MG/5 ML ORAL LIQD PO SCH (21:38)
[2021-09-18] MEDS: REMDESIVIR 100 MG in SODIUM CHLORIDE 0.9% 250ML 250 ML IV SCH (21:39)
[2021-09-18] MEDS: SODIUM CHLORIDE 0.9% 50 ML IVPB IV SCH (22:28)
[2021-09-19 05:10] LABS: Hematocrit 37.2 % (35.5-45.6); Hemoglobin 12.1 gm/dl (11.8-15.2); Mean Corpuscular HGB Conc 33 % (32-34); Mean Corpuscular Volume 94 fl (84-94); Platelet Count 193 K/mm3 (140-440); Red Blood Count 3.97 M/mm3 (3.65-5.03); Red Cell Distribution Width 12.6 % (13.2-15.2)
[2021-09-19 05:33] LABS: Alanine Aminotransferase 130 units/L (7-56); Albumin 3.6 g/dL (3.9-5); BUN/Creatinine Ratio 29; Blood Urea Nitrogen 26 mg/dL (9-20); Calcium 8.6 mg/dL (8.4-10.2); Hemolysis Index 8
[2021-09-19] MEDS: NITROGLYCERIN 0.4 MG PATCH 24HR TD SCH ×2 (07:34→07:35)
[2021-09-19] MEDS: INSULIN LISPRO 100 UNIT/ML SUB-Q SCH ×4 (08:15→22:53)
--- NOTE | 2021-09-19 10:14 | Discharge Summary ---
Providers - Providers Date of Admission: 09/14/21 18:41 Attending physician: ROSALIE SHARMA MD 09/14/21 Consult to Cardiac Rehabilitation [CONS] Routine Reason For Exam: post pci 09/14/21 15:46 Consult to Dietitian/Nutrition [CONS] Routine Physician Instructions: Reason For Exam: Reason for Consult: Evaluate nutritional intake 09/14/21 16:57 Consult to Physician [CONS] Urgent Comment: Consulting Provider: AJ KOHLER Physician Instructions: Reason For Exam: stemi, s/p cpr 09/15/21 08:09 Consult to Dietitian/Nutrition [CONS] Routine Physician Instructions: Reason For Exam: Reason for Consult: Write/Manage Tube Feeding 09/15/21 16:27 Consult to Physician [CONS] Routine Comment: Consulting Provider: FLORY HENSLEY Physician Instructions: Reason For Exam: s/p cardiac arrest 09/15/21 16:53 Consult to Physician [CONS] Routine Comment: Consulting Provider: ISRAEL PHAM Physician Instructions: Reason For Exam: covid 19 infection 09/16/21 12:15 Speech Therapy Evaluation and Treat [CONS] Urgent Reason For Exam: post extubation swallow eval 09/18/21 10:12 Physical Therapy Evaluation and Treat [CONS] Routine Comment: Reason For Exam: Conditioning Primary care physician: [employer] [facility] Hospitalization Reason for admission: Cardiac arrest Condition: Stable Hospital course: This is a 41-year-old male admitted with post cardiac arrest with ROSC 2/2 STEMI s/p emergent PCI in [facility] Hospital Course to Date: This is a 41-year-old male without significant medical history who presented to the emergency department on 09/14/2021 in cardiac arrest after being noted that he started "jerking and his eyes rolled back" in the backseat of his car. She pulled into the ambulance bay and an EMS personnel in the [place] started CPR and found the patient with agonal breathing. ACLS was started in the emergency department and he was noted to be in V. fib, receivedseveral shocks and was given amiodarone and lidocaine. He was also intubated during this time and received a femoral line. Work-up in the emergency department included ECG which showed hyperacute T waves and cardiology was consulted. Patient was taken emergently to the cardiac [facility] where it was noted that he had a complete occlusion of the LAD and had a successful angioplasty. He also had severe hy pokalemia which was treated, elevated D-dimer, metabolic acidosis and acute kidney injury. Patient was admitted to the hospitalist service s/p cardiac arrest, STEMI, acute kidney injury, acute hypoxic respiratory failure with consults to cardiology and [facility]. 09/15: Patient had a CTA and CT head today, remains on the ventilator. Continues amiodarone and heparin drip. Received 1 L LR bolus for ALLISON. Started on bolus feeding. COVID-19 PCR positive. 09/16: Patient self-extubated this am, now stable on 2LNC. Patient with periods of disorientation, otherwise awake and alert. Rafiq temp overnight, orders placed for blood cultures. Continue current IV ABx, ID consult pending. Given worsening Ddimer will also r/o DVT, BLE doppler ordered.. D/w CCM patient is stable for transfer to the floor. 09/17: Patient is on RA this am, fully AAO. CT head noted, with no acute abnormality. Pending speech swallow eval. Low K repleted, repeat labs in the am. 09/18: Patient remains stable on RA. Conference call this am at the bedside with patient's and the attending. Both patient and were updated on patient's status. C/f possible short term memory loss, recent CT head noted with no acute abnormalities, will order MRI for further eval. 09/19: Patient seen and examined memory is improving otherwise clinically stable no new complaints. Counseling provided to the patient on the importance of following up with primary cardiac care nurse on discharge and verbalized understanding also compliance with medication Assessment and Plan #Neuro:Anxiety -AAO, c/f short term memory loss -CT head shows no acute abnormality -repeat CT head was unchanged -Will order MRI for further eval -Neuro consult pending -Avoid benzodiazepine to reduce the possibility of delirium -Reorientation as needed -Prn analgesia for CPOT greater than 3 -Maintenance of sleep-wake cycle -Melatonin added qHS #Cardiac:Severe Cardiomyopathy #STEMI s/p PCI #s/p VFib arrest with ROSC -Presented with vfib arrest, shocked mulitple times before ROSC acheived -09/14 s/p Emergent Caridac Cath which showed 100% occlusion of the LAD X2 Stents -S/p Amio gtt -SR to ST on the monitor this am -09/14 Echocardiogram- EF 20% with severe dilated cardiomyopathy. -Cardiology on consult, appreciated recommendations -Cardio rec medical management with LifeVest monitoring on discharge. -Continue blood pressure monitor per protocol -Maintain MAP above 65 -Continue Aspirin, plavix, & lipitor -Continue AC- Heparin SubQ -Lipid panel noted in chart #Respiratory: Acute respiratory failure #COVID Pneumonia -Intubated on 09/14 during code -Self-Extubated this am 1/3 -On RA this am, SPO2 above 95% -O2 supplementation as needed -CCM consulted, appreciate recommendations -VAP bundle addressed -Aspiration precaution HOB above 30 -Continue O2 supplementation and SPO2 monitoring for SPO2 goal above 95% #GI: Transaminitis -Elevated LFTs most likely reactive post code -CTA chest shows diffuse thickening throughout the colon and fluid surrounding the gallbladder fossa and gallbladder -Continue to trend LFTs -Patient failed bedside swallow eval -Pass Speech swallow eval -Patient is tolerating diet -Continue PPI-Pepcid -BR: senna #: Acute kidney injury secondary likely ATN #Hyperkalemia-resolved #Metabolic acidosis -Most likely due to code, hypoperfusion -SCr. normalized -Strict intake and output -Avoid nephrotoxic medications; Renally dose medications -Alvarado in place -Monitor and replace electrolytes as needed #ID:COVID Pneumonia #Leukocytosis -Patient COVID swab came back positive -CTA chest shows bilateral lower lobe infiltrates with opacities -Leukocytosis downtrending -Patient afebrile overnight -Blood culture pending -Infectious disease consulted -Continue IV Abx per ID -Procal pending -Per ID if procalcitonin <0.25 ng/mL stop antibiotics. If not okay to discharge with Omnicef 300 mg every 12 hours to complete a full course. -Droplet/contact precautions -Continue IV Steroids -Vitamin C, vitamin D, zinc -Trend COVID-19 inflammatory markers -Monitor WBC and temperature curve -Trend CBC #Endo:Glycemic Control -Continue SSI Q6hrs wile NPO/TF -Avoid Hypoglycemia Disposition: HOME HEALTH CARE SERVICE Final Discharge Diagnosis (Prints w/discharge instructions): ST elevated ME secondary to cardiac arrest status post PCI Time spent for discharge: 35-minute Core Measure Documentation - Palliative Care Palliative Care/ Comfort Measures: Not Applicable - Core Measures Any of the following diagnoses?: acute ME - Acute ME Discharge Requirements Aspirin at discharge: Yes ALDAIR/ARB for LVSD if EF <40%: Yes Beta chasidy at discharge: Yes Statin for LDL = or >100 mg/dl on DC: Yes Exam - Physical Exam Narrative exam: General appearance: Present: no acute distress, well-nourished - EENT Eyes: Present: PERRL, EOM intact ENT: hearing intact, clear oral mucosa - Neck Neck: Present: normal ROM - Respiratory Respiratory effort: normal Respiratory: bilateral: diminished - Cardiovascular Rhythm: regular Heart Sounds: Present: S1 & S2 - Extremities Extremities: no ischemia, pulses intact, pulses symmetrical Peripheral Pulses: within normal limits - Abdominal General gastrointestinal: soft, non-tender, normal bowel sounds - Integumentary Integumentary: Present: warm, dry - Psychiatric Psychiatric: appropriate mood/affect, cooperative - Neurologic Neurologic: CNII-XII intact, moves all extremities, other (c/f short term memory loss) - Allied Health Allied health notes reviewed: nursing - Constitutional Vitals: Temp Pulse Resp BP Pulse Ox 98.3 F 89 18 129/87 99 09/19/21 04:00 09/19/21 00:00 09/19/21 00:00 09/18/21 22:00 09/19/21 00:00 Plan Activity: advance as tolerated, fall precautions Diet: low fat Special Instructions: record daily weights, record daily BP diary Follow up with: AJ KOHLER MD [Staff Physician] - 7 Days PRIMARY CARE, [Primary Care Provider] - 3-5 Days ANNY CARRINGTON MD [Staff Physician] - 7 Days Prescriptions: AtorvaSTATin [Lipitor] 40 mg PO QHS #30 tablet Melatonin [Melatonin 5MG TAB] 5 mg PO QHS #30 tablet Aspirin [Aspirin BABY CHEW TAB] 162 mg PO QDAY #60 tab.chew dexAMETHasone [Dexamethasone] 6 mg PO DAILY #5 tab Metoprolol [Lopressor TAB] 50 mg PO BID #60 tablet Clopidogrel [Plavix] 75 mg PO QDAY #30 tablet Ascorbic Acid [Vitamin C] 500 mg PO QDAY #30 tablet Cholecalciferol (Vitamin D3) [Vitamin D3] 5,000 unit PO DAILY #30 tablet lisinopriL [Zestril TAB] 5 mg PO QDAY #30 tablet Zinc Sulfate 220 mg PO BID #60 capsule
--- NOTE | 2021-09-19 10:55 | Progress Note ---
Assessment and Plan - Patient Problems (1) STEMI (ST elevation myocardial infarction) Current Visit: Yes Status: Acute Qualifiers: Involved coronary artery: right coronary artery Qualified Code(s): I21.11 - ST elevation (STEMI) myocardial infarction involving right coronary artery Plan to address problem: Status post acute anterolateral wall myocardial infarction, complicated by ventricular fibrillation arrest in the emergency room. The patient underwent successful primary angioplasty and stenting of 100% proximal LAD occlusion. Subsequent echocardiogram shows a severe dilated cardiomyopathy with ejection fraction 20% and hypo to akinesis of the anterior lateral wall and apex. In addition to guideline directed medical therapy, we have ordered LifeVest monitoring on discharge. Subjective Date of service: 09/19/21 Interval history: Patient looks and feels comfortable, alert and oriented x3, no cardiac complain ts. He is awaiting the fitting of a LifeVest. Objective Vital Signs Temp Pulse Pulse Resp BP Pulse Ox 09/19/21 04:00 98.3 F 09/19/21 00:00 89 18 99 09/18/21 22:00 72 15 129/87 96 09/18/21 21:38 83 129/87 09/18/21 21:00 83 14 129/87 99 09/18/21 20:36 97 09/18/21 20:00 98.3 F 85 90 18 127/66 98 09/18/21 19:00 75 22 127/66 99 09/18/21 18:30 99 H 26 H 122/80 92 09/18/21 18:16 76 14 122/80 97 09/18/21 18:00 71 15 122/80 98 09/18/21 17:46 71 18 131/85 98 09/18/21 17:30 75 19 131/85 98 09/18/21 17:16 69 24 131/85 97 09/18/21 17:00 74 19 131/85 98 09/18/21 16:46 74 13 135/87 98 09/18/21 16:30 111 H 24 135/87 09/18/21 16:16 79 14 135/87 98 09/18/21 16:04 77 22 126/96 100 09/18/21 16:00 98.1 F 70 18 99 09/18/21 15:46 86 19 126/96 98 09/18/21 15:30 80 19 126/96 99 09/18/21 15:16 72 19 126/96 99 09/18/21 15:00 76 14 132/102 100 09/18/21 14:54 80 20 125/86 100 09/18/21 14:00 79 20 125/86 96 09/18/21 13:46 72 35 H 125/86 97 09/18/21 13:30 70 13 125/86 98 09/18/21 13:16 63 13 125/86 98 09/18/21 13:00 69 12 125/86 98 09/18/21 12:46 76 17 125/79 98 09/18/21 12:30 72 17 125/79 98 09/18/21 12:16 72 25 H 125/79 98 09/18/21 12:10 97.9 F 09/18/21 12:00 78 73 26 H 125/79 98 09/18/21 11:46 74 26 H 124/71 96 09/18/21 11:30 85 23 124/71 99 09/18/21 11:16 78 24 124/71 98 09/18/21 11:00 83 12 124/71 95 - Physical Examination General: No Apparent Distress HEENT: Positive: PERRL Neck: Positive: neck supple Cardiac: Positive: Reg Rate and Rhythm Lungs: Positive: Decreased Breath Sounds Neuro: Positive: Grossly Intact Abdomen: Positive: Unremarkable, Soft Skin: Positive: Clear Extremities: Present: normal. Absent: edema - Labs and Meds Cardiac Enzymes 09/19/21 Range/Units 04:28 AST 86 H (5-40) units/L CBC 09/19/21 Range/Units 04:28 WBC 12.8 H (4.5-11.0) K/mm3 RBC 3.97 (3.65-5.03) M/mm3 Hgb 12.1 (11.8-15.2) gm/dl Hct 37.2 (35.5-45.6) % Plt Count 193 (140-440) K/mm3 Comprehensive Metabolic Panel 09/19/21 Range/Units 04:28 Sodium 144 (137-145) mmol/L Potassium 4.0 (3.6-5.0) mmol/L Chloride 106.0 (98-107) mmol/L Carbon Dioxide 26 (22-30) mmol/L BUN 26 H (9-20) mg/dL Creatinine 0.9 (0.8-1.3) mg/dL Glucose 100 (75-100) mg/dL Calcium 8.6 (8.4-10.2) mg/dL AST 86 H (5-40) units/L ALT 130 H (7-56) units/L Alkaline Phosphatase 65 (35-129) units/L Total Protein 6.3 (6.3-8.2) g/dL Albumin 3.6 L (3.9-5) g/dL - Imaging and Cardiology EKG: report reviewed (ST elevayion )
[2021-09-19] MEDS: HEPARIN 5,000 UNIT/1 ML VIAL SUB-Q SCH ×2 (14:23→22:48)
[2021-09-19] MEDS: dexAMETHasone 4 MG/ML VIAL IV SCH (14:24)
[2021-09-19] MEDS: FAMOTIDINE 20 MG TAB PO SCH ×2 (14:27→23:00)
[2021-09-19] MEDS: CHOLECALCIFEROL (VIT D3) 5,000 UNIT TAB PO SCH (14:27)
[2021-09-19] MEDS: CLOPIDOGREL 75 MG TAB PO SCH (14:28)
[2021-09-19] MEDS: ZINC SULFATE 220 MG CAP PO SCH ×2 (14:28→22:54)
[2021-09-19] MEDS: ASCORBIC ACID 500 MG TAB PO SCH (14:28)
[2021-09-19] MEDS: ASPIRIN 81 MG TAB CHEW PO SCH (14:29)
[2021-09-19] MEDS: METOPROLOL TARTRATE 50 MG TAB PO SCH ×2 (14:30→23:04)
[2021-09-19] MEDS: LISINOPRIL 5 MG TAB PO SCH (14:31)
[2021-09-19] MEDS: cefTRIAXone/NS 2 GM/100 ML 2 GM/100 ML BAG IV SCH (16:49)
[2021-09-19] MEDS: METOPROLOL TARTRATE 50 MG TAB FEEDTUBE SCH (20:24)
[2021-09-19] MEDS: ASPIRIN 81 MG TAB CHEW FEEDTUBE SCH (20:24)
[2021-09-19] MEDS: FAMOTIDINE 20 MG TAB FEEDTUBE SCH (20:25)
[2021-09-19] MEDS: CLOPIDOGREL 75 MG TAB FEEDTUBE SCH (20:26)
[2021-09-19] MEDS: SODIUM CHLORIDE 0.9% 50 ML IVPB IV SCH ×2 (22:48→23:20)
[2021-09-19] MEDS: REMDESIVIR 100 MG in SODIUM CHLORIDE 0.9% 250ML 250 ML IV SCH (22:48)
[2021-09-19] MEDS: SENNOSIDES ORAL LIQD 8.8 MG/5 ML ORAL LIQD PO SCH (22:52)
[2021-09-19] MEDS: MELATONIN 5 MG TAB PO SCH (22:52)
[2021-09-20] MEDS: NITROGLYCERIN 0.4 MG PATCH 24HR TD SCH (06:38)
[2021-09-20] MEDS: INSULIN LISPRO 100 UNIT/ML SUB-Q SCH ×4 (09:16→21:54)
[2021-09-20] MEDS: CHOLECALCIFEROL (VIT D3) 5,000 UNIT TAB PO SCH (09:25)
[2021-09-20] MEDS: ZINC SULFATE 220 MG CAP PO SCH ×2 (09:25→21:52)
[2021-09-20] MEDS: ASCORBIC ACID 500 MG TAB PO SCH (09:25)
[2021-09-20] MEDS: LISINOPRIL 5 MG TAB PO SCH (09:25)
[2021-09-20] MEDS: FAMOTIDINE 20 MG TAB PO SCH ×2 (09:25→21:49)
[2021-09-20] MEDS: CLOPIDOGREL 75 MG TAB PO SCH (09:25)
[2021-09-20] MEDS: ASPIRIN 81 MG TAB CHEW PO SCH (09:25)
[2021-09-20] MEDS: HEPARIN 5,000 UNIT/1 ML VIAL SUB-Q SCH ×2 (09:25→21:52)
[2021-09-20] MEDS: METOPROLOL TARTRATE 50 MG TAB PO SCH ×2 (09:25→21:49)
[2021-09-20] MEDS: dexAMETHasone 4 MG/ML VIAL IV SCH (09:26)
--- NOTE | 2021-09-20 10:35 | Discharge Summary ---
Providers - Providers Date of Admission: 09/14/21 18:41 Attending physician: ROSALIE SHARMA MD 09/14/21 Consult to Cardiac Rehabilitation [CONS] Routine Reason For Exam: post pci 09/14/21 15:46 Consult to Dietitian/Nutrition [CONS] Routine Physician Instructions: Reason For Exam: Reason for Consult: Evaluate nutritional intake 09/14/21 16:57 Consult to Physician [CONS] Urgent Comment: Consulting Provider: AJ KOHLER Physician Instructions: Reason For Exam: stemi, s/p cpr 09/15/21 08:09 Consult to Dietitian/Nutrition [CONS] Routine Physician Instructions: Reason For Exam: Reason for Consult: Write/Manage Tube Feeding 09/15/21 16:27 Consult to Physician [CONS] Routine Comment: Consulting Provider: FLORY HENSLEY Physician Instructions: Reason For Exam: s/p cardiac arrest 09/15/21 16:53 Consult to Physician [CONS] Routine Comment: Consulting Provider: ISRAEL PHAM Physician Instructions: Reason For Exam: covid 19 infection 09/16/21 12:15 Speech Therapy Evaluation and Treat [CONS] Urgent Reason For Exam: post extubation swallow eval 09/18/21 10:12 Physical Therapy Evaluation and Treat [CONS] Routine Comment: Reason For Exam: Conditioning Primary care physician: TOE LINING CLOSER Hospitalization Reason for admission: Cardiac arrest Condition: Stable Hospital course: Hospital course: This is a 41-year-old male admitted with post cardiac arrest with ROSC 2/2 STEMI s/p emergent PCI in [facility] Hospital Course to Date: This is a 41-year-old male without significant medical history who presented to the emergency department on 09/14/2021 in cardiac arrest after being noted that he started "jerking and his eyes rolled back" in the backseat of his car. She pulled into the ambulance bay and an EMS personnel in the [place] started CPR and found the patient with agonal breathing. ACLS was started in the emergency department and he was noted to be in V. fib, receivedseveral shocks and was given amiodarone and lidocaine. He was also intubated during this time and received a femoral line. Work-up in the emergency department included ECG which showed hyperacute T waves and cardiology was consulted. Patient was taken emergently to the cardiac Radiology Specialist where it was noted that he had a complete occlusion of the LAD and had a successful angioplasty. He also had severe hypokalemia which was treated, elevated D-dimer, metabolic acidosis and acute kidney injury. Patient was admitted to the hospitalist service s/p cardiac arrest, STEMI, acute kidney injury, acute hypoxic respiratory failure with consults to cardiology and [facility]. 09/15: Patient had a CTA and CT head today, remains on the ventilator. Continues amiodarone and heparin drip. Received 1 L LR bolus for ALLISON. Started on bolus feeding. COVID-19 PCR positive. 09/16: Patient self-extubated this am, now stable on 2LNC. Patient with periods of disorientation, otherwise awake and alert. Rafiq temp overnight, orders placed for blood cultures. Continue current IV ABx, ID consult pending. Given worsening Ddimer will also r/o DVT, BLE doppler ordered.. D/w CCM patient is stable for transfer to the floor. 09/17: Patient is on RA this am, fully AAO. CT head noted, with no acute abnormality. Pending speech swallow eval. Low K repleted, repeat labs in the am. 09/18: Patient remains stable on RA. Conference call this am at the bedside with patient's and the attending. Both patient and were updated on patient's status. C/f possible short term memory loss, recent CT head noted with no acute abnormalities, will order MRI for further eval. 09/19: Patient seen and examined memory is improving otherwise clinically stable no new complaints. Counseling provided to the patient on the importance of following up with primary windows laptop technician on discharge and verbalized understanding also compliance with medication 09/20: Patient remains clinically stable mentation significantly improved awaiting LifeVest for discharge continue current management Assessment and Plan #Neuro:Anxiety -AAO, c/f short term memory loss -CT head shows no acute abnormality -repeat CT head was unchanged -Will order MRI for further eval -Neuro consult pending -Avoid benzodiazepine to reduce the possibility of delirium -Reorientation as needed -Prn analgesia for CPOT greater than 3 -Maintenance of sleep-wake cycle -Melatonin added qHS #Cardiac:Severe Cardiomyopathy #STEMI s/p PCI #s/p VFib arrest with ROSC -Presented with vfib arrest, shocked mulitple times before ROSC acheived -09/14 s/p Emergent Caridac Cath which showed 100% occlusion of the LAD X2 Stents -S/p Amio gtt -SR to ST on the monitor this am -09/14 Echocardiogram- EF 20% with severe dilated cardiomyopathy. -Cardiology on consult, appreciated recommendations -Cardio rec medical management with LifeVest monitoring on discharge. -Continue blood pressure monitor per protocol -Maintain MAP above 65 -Continue Aspirin, plavix, & lipitor -Continue AC- Heparin SubQ -Lipid panel noted in chart #Respiratory: Acute respiratory failure #COVID Pneumonia -Intubated on 09/14 during code -Self-Extubated this am 09/16 -On RA this am, SPO2 above 95% -O2 supplementation as needed -CCM consulted, appreciate recommendations -VAP bundle addressed -Aspiration precaution HOB above 30 -Continue O2 supplementation and SPO2 monitoring for SPO2 goal above 95% #GI: Transaminitis -Elevated LFTs most likely reactive post code -CTA chest shows diffuse thickening throughout the colon and fluid surrounding the gallbladder fossa and gallbladder -Continue to trend LFTs -Patient failed bedside swallow eval -Pass Speech swallow eval -Patient is tolerating diet -Continue PPI-Pepcid -BR: senna #: Acute kidney injury secondary likely ATN #Hyperkalemia-resolved #Metabolic acidosis -Most likely due to code, hypoperfusion -SCr. normalized -Strict intake and output -Avoid nephrotoxic medications; Renally dose medications -Alvarado in place -Monitor and replace electrolytes as needed #ID:COVID Pneumonia #Leukocytosis -Patient COVID swab came back positive -CTA chest shows bilateral lower lobe infiltrates with opacities -Leukocytosis downtrending -Patient afebrile overnight -Blood culture pending -Infectious disease consulted -Continue IV Abx per ID -Procal pending -Per ID if procalcitonin <0.25 ng/mL stop antibiotics. If not okay to discharge with Omnicef 300 mg every 12 hours to complete a full course. -Droplet/contact precautions -Continue IV Steroids -Vitamin C, vitamin D, zinc -Trend COVID-19 inflammatory markers -Monitor WBC and temperature curve -Trend CBC #Endo:Glycemic Control -Continue SSI Q6hrs wile NPO/TF -Avoid Hypoglycemia Disposition: HOME HEALTH CARE SERVICE Final Discharge Diagnosis (Prints w/discharge instructions): ST elevated ND secondary to cardiac arrest status post PCI Time spent for discharge: 35 minutes Core Measure Documentation - Palliative Care Palliative Care/ Comfort Measures: Not Applicable - Core Measures Any of the following diagnoses?: none Exam - Physical Exam Narrative exam: General appearance: Present: no acute distress, well-nourished - EENT Eyes: Present: PERRL, EOM intact ENT: hearing intact, clear oral mucosa - Neck Neck: Present: normal ROM - Respiratory Respiratory effort: normal Respiratory: bilateral: diminished - Cardiovascular Rhythm: regular Heart Sounds: Present: S1 & S2 - Extremities Extremities: no ischemia, pulses intact, pulses symmetrical Peripheral Pulses: within normal limits - Abdominal General gastrointestinal: soft, non-tender, normal bowel sounds - Integumentary Integumentary: Present: warm, dry - Psychiatric Psychiatric: appropriate mood/affect, cooperative - Neurologic Neurologic: CNII-XII intact, moves all extremities, other (c/f short term memory loss) - Allied Health Allied health notes reviewed: nursing - Constitutional Vitals: Temp Pulse Resp BP Pulse Ox 97.8 F 64 19 125/84 97 09/20/21 07:58 09/20/21 07:58 09/20/21 07:58 09/20/21 07:58 09/20/21 07:58 Plan Activity: advance as tolerated, fall precautions Diet: low fat Special Instructions: record daily weights, record daily BP diary, smoking cessation Plan of Treatment: Must complete COVID management and precautions. Follow up with: AJ KOHLER MD [Staff Physician] - 7 Days PRIMARY CARE, [Primary Care Provider] - 3-5 Days ANNY CARRINGTON MD [Staff Physician] - 7 Days Prescriptions: AtorvaSTATin [Lipitor] 40 mg PO QHS #30 tablet Melatonin [Melatonin 5MG TAB] 5 mg PO QHS #30 tablet Aspirin [Aspirin BABY CHEW TAB] 162 mg PO QDAY #60 tab.chew dexAMETHasone [Dexamethasone] 6 mg PO DAILY #5 tab Metoprolol [Lopressor TAB] 50 mg PO BID #60 tablet Clopidogrel [Plavix] 75 mg PO QDAY #30 tablet Ascorbic Acid [Vitamin C] 500 mg PO QDAY #30 tablet Cholecalciferol (Vitamin D3) [Vitamin D3] 5,000 unit PO DAILY #30 tablet lisinopriL [Zestril TAB] 5 mg PO QDAY #30 tablet Zinc Sulfate 220 mg PO BID #60 capsule
--- NOTE | 2021-09-20 12:37 | Progress Note ---
Assessment and Plan - Patient Problems (1) STEMI (ST elevation myocardial infarction) Current Visit: Yes Status: Acute Qualifiers: Involved coronary artery: right coronary artery Qualified Code(s): I21.11 - ST elevation (STEMI) myocardial infarction involving right coronary artery Plan to address problem: Status post acute anterolateral wall myocardial infarction, complicated by ventricular fibrillation arrest in the emergency room. The patient underwent successful primary angioplasty and stenting of 100% proximal LAD occlusion. Subsequent echocardiogram shows a severe dilated cardiomyopathy with ejection fraction 20% and hypo to akinesis of the anterior lateral wall and apex. In addition to guideline directed medical therapy, we have ordered LifeVest monitoring on discharge. Subjective Date of service: 09/20/21 Interval history: Patient is comfortable, alert and oriented x3, no cardiac complaints. He is aw aiting fitting of the LifeVest. Objective Vital Signs Temp Pulse Pulse Resp BP Pulse Ox 09/20/21 07:58 97.8 F 64 19 125/84 97 09/20/21 06:38 71 121/76 09/20/21 05:59 98.3 F 71 19 128/76 97 09/19/21 23:04 70 122/73 09/19/21 22:46 99.5 F 70 18 122/73 96 09/19/21 22:00 68 18 95 09/19/21 20:35 97 09/19/21 18:08 98.6 F 68 18 119/77 95 09/19/21 14:31 74 118/78 09/19/21 14:30 74 118/78 - Physical Examination General: No Apparent Distress HEENT: Positive: PERRL Neck: Positive: neck supple Cardiac: Positive: Reg Rate and Rhythm Lungs: Positive: clear to auscultation Neuro: Positive: Grossly Intact Abdomen: Positive: Unremarkable, Soft Skin: Positive: Clear Extremities: Present: normal. Absent: edema - Imaging and Cardiology EKG: report reviewed (ST elevayion )
[2021-09-20] MEDS: REMDESIVIR 100 MG in SODIUM CHLORIDE 0.9% 250ML 250 ML IV SCH (21:50)
[2021-09-20] MEDS: MELATONIN 5 MG TAB PO SCH (21:51)
[2021-09-20] MEDS: SENNOSIDES ORAL LIQD 8.8 MG/5 ML ORAL LIQD PO SCH (21:52)
[2021-09-20] MEDS: SODIUM CHLORIDE 0.9% 50 ML IVPB IV SCH (21:52)
[2021-09-21] MEDS: NITROGLYCERIN 0.4 MG PATCH 24HR TD SCH (06:59)
[2021-09-21] MEDS: INSULIN LISPRO 100 UNIT/ML SUB-Q SCH (07:30)
[2021-09-21] MEDS: ZINC SULFATE 220 MG CAP PO SCH (09:08)
[2021-09-21] MEDS: HEPARIN 5,000 UNIT/1 ML VIAL SUB-Q SCH (09:09)
[2021-09-21] MEDS: LISINOPRIL 5 MG TAB PO SCH (09:09)
[2021-09-21] MEDS: ASPIRIN 81 MG TAB CHEW PO SCH (09:10)
[2021-09-21] MEDS: CLOPIDOGREL 75 MG TAB PO SCH (09:10)
[2021-09-21] MEDS: CHOLECALCIFEROL (VIT D3) 5,000 UNIT TAB PO SCH (09:10)
[2021-09-21] MEDS: FAMOTIDINE 20 MG TAB PO SCH (09:10)
[2021-09-21] MEDS: ASCORBIC ACID 500 MG TAB PO SCH (09:10)
[2021-09-21] MEDS: METOPROLOL TARTRATE 50 MG TAB PO SCH (09:11)
[2021-09-21] MEDS ORDERED: DEXAMETHASONE 2 MG TAB PO SCH (10:00)
--- NOTE | 2021-09-21 10:17 | Progress Note ---
Assessment and Plan Assessment and plan: Hospitalization Reason for admission: Cardiac arrest Condition: Stable Hospital course: Hospital course: This is a 41-year-old male admitted with post cardiac arrest with ROSC 2/2 STEMI s/p emergent PCI in LAD Hospital Course to Date: This is a 41-year-old male without significant medical history who presented to the emergency department on 09/14/2021 in cardiac arrest after being noted that he started "jerking and his eyes rolled back" in the backseat of his car. She pulled into the ambulance bay and an EMS personnel in the [place] started CPR and found the patient with agonal breathing. ACLS was started in the emergency department and he was noted to be in V. fib, receivedseveral shocks and was given amiodarone and lidocaine. He was also intubated during this time and received a femoral line. Work-up in the emergency department included ECG which showed hyperacute T waves and cardiology was consulted. Patient was taken emergently to the [facility] where it was noted that he had a complete occlusion of the LAD and had a successful angioplasty. He also had severe hypokalemia which was treated, elevated D-dimer, metabolic acidosis and acute kidney injury. Patient was admitted to the hospitalist service s/p cardiac arrest, STEMI, acute kidney injury, acute hypoxic respiratory failure with consults to cardiology and [facility]. 09/15: Patient had a CTA and CT head today, remains on the ventilator. Continues amiodarone and heparin drip. Received 1 L LR bolus for ALLISON. Started on bolus feeding. COVID-19 PCR positive. 09/16: Patient self-extubated this am, now stable on 2LNC. Patient with periods of disorientation, otherwise awake and alert. Rafiq temp overnight, orders placed for blood cultures. Continue current IV ABx, ID consult pending. Given worsening Ddimer will also r/o DVT, BLE doppler ordered.. D/w CCM patient is stable for transfer to the floor. 09/17: Patient is on RA this am, fully AAO. CT head noted, with no acute abnormality. Pending speech swallow eval. Low K repleted, repeat labs in the am. 09/18: Patient remains stable on RA. Conference call this am at the bedside with patient's and the attending. Both patient and were updated on patient's status. C/f possible short term memory loss, recent CT head noted with no acute abnormalities, will order MRI for further eval. 09/19: Patient seen and examined memory is improving otherwise clinically stable no new complaints. Counseling provided to the patient on the importance of following up with primary r d manager on discharge and verbalized understanding also compliance with medication 09/20: Patient remains clinically stable mentation significantly improved awaiting LifeVest for discharge continue current management 09/21: Patient clinically stable no acute event reported overnight. No worsening respiratory status. LifeVest team fitted and instructed him and his today stable for discharge at this time. Continue discharge plan as documented yesterday Assessment and Plan #Neuro:Anxiety -AAO, c/f short term memory loss -CT head shows no acute abnormality -repeat CT head was unchanged -Will order MRI for further eval -Neuro consult pending -Avoid benzodiazepine to reduce the possibility of delirium -Reorientation as needed -Prn analgesia for CPOT greater than 3 -Maintenance of sleep-wake cycle -Melatonin added qHS #Cardiac:Severe Cardiomyopathy #STEMI s/p PCI #s/p VFib arrest with ROSC -Presented with vfib arrest, shocked mulitple times before ROSC acheived -09/14 s/p Emergent Caridac Cath which showed 100% occlusion of the LAD X2 Stents -S/p Amio gtt -SR to ST on the monitor this am -09/14 Echocardiogram- EF 20% with severe dilated cardiomyopathy. -Cardiology on consult, appreciated recommendations -Cardio rec medical management with LifeVest monitoring on discharge. -Continue blood pressure monitor per protocol -Maintain MAP above 65 -Continue Aspirin, plavix, & lipitor -Continue AC- Heparin SubQ -Lipid panel noted in chart #Respiratory: Acute respiratory failure #COVID Pneumonia -Intubated on 09/14 during code -Self-Extubated this am 09/16 -On RA this am, SPO2 above 95% -O2 supplementation as needed -CCM consulted, appreciate recommendations -VAP bundle addressed -Aspiration precaution HOB above 30 -Continue O2 supplementation and SPO2 monitoring for SPO2 goal above 95% #GI: Transaminitis -Elevated LFTs most likely reactive post code -CTA chest shows diffuse thickening throughout the colon and fluid surrounding the gallbladder fossa and gallbladder -Continue to trend LFTs -Patient failed bedside swallow eval -Pass Speech swallow eval -Patient is tolerating diet -Continue PPI-Pepcid -BR: senna #: Acute kidney injury secondary likely ATN #Hyperkalemia-resolved #Metabolic acidosis -Most likely due to code, hypoperfusion -SCr. normalized -Strict intake and output -Avoid nephrotoxic medications; Renally dose medications -Alvarado in place -Monitor and replace electrolytes as needed #ID:COVID Pneumonia #Leukocytosis -Patient COVID swab came back positive -CTA chest shows bilateral lower lobe infiltrates with opacities -Leukocytosis downtrending -Patient afebrile overnight -Blood culture pending -Infectious disease consulted -Continue IV Abx per ID -Procal pending -Per ID if procalcitonin <0.25 ng/mL stop antibiotics. If not okay to discharge with Omnicef 300 mg every 12 hours to complete a full course. -Droplet/contact precautions -Continue IV Steroids -Vitamin C, vitamin D, zinc -Trend COVID-19 inflammatory markers -Monitor WBC and temperature curve -Trend CBC #Endo:Glycemic Control -Continue SSI Q6hrs wile NPO/TF -Avoid Hypoglycemia Disposition: HOME HEALTH CARE SERVICE Final Discharge Diagnosis (Prints w/discharge instructions): ST elevated CO secondary to cardiac arrest status post PCI History Interval history: Patient seen and examined today resting comfortably he was fitted by the LifeVest team today Hospitalist Physical - Physical exam Narrative exam: General appearance: Present: no acute distress, well-nourished - EENT Eyes: Present: PERRL, EOM intact ENT: hearing intact, clear oral mucosa - Neck Neck: Present: normal ROM - Respiratory Respiratory effort: normal Respiratory: bilateral: diminished - Cardiovascular Rhythm: regular Heart Sounds: Present: S1 & S2 - Extremities Extremities: no ischemia, pulses intact, pulses symmetrical Peripheral Pulses: within normal limits - Abdominal General gastrointestinal: soft, non-tender, normal bowel sounds - Integumentary Integumentary: Present: warm, dry - Psychiatric Psychiatric: appropriate mood/affect, cooperative - Neurologic Neurologic: CNII-XII intact, moves all extremities, other (c/f short term memory loss) - Allied Health Allied health notes reviewed: nursing - Constitutional Vitals: Temp Pulse Resp BP Pulse Ox 98.4 F 95 H 20 120/78 92 09/21/21 06:01 09/21/21 09:11 09/21/21 06:01 09/21/21 09:11 09/21/21 06:01 General appearance: Present: no acute distress, well-nourished HEART Score - HEART Score Age: < 45 Risk factors: 1-2 risk factors Troponin: Troponin T 12.440 ng/mL (0.00-0.029) H* D 09/15/21 03:36 Troponin: 1-3x normal limit - Critical Actions Critical Actions: >7 pts:50-65% risk of adverse cardiac event. Early invasive measures Results - Labs CBC & Chem 7: 09/19/21 04:28 09/19/21 04:28 Labs: Laboratory Last Values WBC 12.8 K/mm3 (4.5-11.0) H 09/19/21 04:28 RBC 3.97 M/mm3 (3.65-5.03) 09/19/21 04:28 Hgb 12.1 gm/dl (11.8-15.2) 09/19/21 04:28 Hct 37.2 % (35.5-45.6) 09/19/21 04:28 MCV 94 fl (84-94) 09/19/21 04:28 MCH 31 pg (28-32) 09/19/21 04:28 MCHC 33 % (32-34) 09/19/21 04:28 RDW 12.6 % (13.2-15.2) L 09/19/21 04:28 Plt Count 193 K/mm3 (140-440) 09/19/21 04:28 Lymph % (Auto) 46.5 % (13.4-35.0) H 09/14/21 15:35 [place] % (Auto) 6.6 % (0.0-7.3) 09/14/21 15:35 Eos % (Auto) 1.1 % (0.0-4.3) 09/14/21 15:35 Baso % (Auto) 0.6 % (0.0-1.8) 09/14/21 15:35 Lymph # (Auto) 2.9 K/mm3 (1.2-5.4) 09/14/21 15:35 [place] # (Auto) 0.4 K/mm3 (0.0-0.8) 09/14/21 15:35 Eos # (Auto) 0.1 K/mm3 (0.0-0.4) 09/14/21 15:35 Baso # (Auto) 0.0 K/mm3 (0.0-0.1) 09/14/21 15:35 Add Manual Diff Complete 09/15/21 00:08 Total Counted 100 09/15/21 00:08 Seg Neutrophils % 45.2 % (40.0-70.0) 09/14/21 15:35 Seg Neuts % (Manual) 89.0 % (40.0-70.0) H 09/15/21 00:08 Band Neutrophils % 3.0 % 09/15/21 00:08 Lymphocytes % (Manual) 3.0 % (13.4-35.0) L 09/15/21 00:08 Monocytes % (Manual) 5.0 % (0.0-7.3) 09/15/21 00:08 Nucleated RBC % Not Reportable 09/15/21 00:08 Seg Neutrophils # 2.8 K/mm3 (1.8-7.7) 09/14/21 15:35 Seg Neutrophils # Man 14.4 K/mm3 (1.8-7.7) H 09/15/21 00:08 Band Neutrophils # 0.5 K/mm3 09/15/21 00:08 Lymphocytes # (Manual) 0.5 K/mm3 (1.2-5.4) L 09/15/21 00:08 Abs React Lymphs (Man) 0.0 K/mm3 09/15/21 00:08 Monocytes # (Manual) 0.8 K/mm3 (0.0-0.8) 09/15/21 00:08 Eosinophils # (Manual) 0.0 K/mm3 (0.0-0.4) 09/15/21 00:08 Basophils # (Manual) 0.0 K/mm3 (0.0-0.1) 09/15/21 00:08 Metamyelocytes # 0.0 K/mm3 09/15/21 00:08 Myelocytes # 0.0 K/mm3 09/15/21 00:08 Promyelocytes # 0.0 K/mm3 09/15/21 00:08 Blast Cells # 0.0 K/mm3 09/15/21 00:08 WBC Morphology Not Reportable 09/15/21 00:08 Hypersegmented Neuts Not Reportable 09/15/21 00:08 Hyposegmented Neuts Not Reportable 09/15/21 00:08 Hypogranular Neuts Not Reportable 09/15/21 00:08 Smudge Cells Not Reportable 09/15/21 00:08 Toxic Granulation Not Reportable 09/15/21 00:08 Toxic Vacuolation Not Reportable 09/15/21 00:08 Dohle Bodies Not Reportable 09/15/21 00:08 Pelger-Huet Anomaly Not Reportable 09/15/21 00:08 Sarwat Rods Not Reportable 09/15/21 00:08 Platelet Estimate Consistent w auto 09/15/21 00:08 Clumped Platelets Not Reportable 09/15/21 00:08 Plt Clumps, EDTA Not Reportable 09/15/21 00:08 Large Platelets Not Reportable 09/15/21 00:08 Giant Platelets Not Reportable 09/15/21 00:08 Platelet Satelliting Not Reportable 09/15/21 00:08 Plt Morphology Comment Not Reportable 09/15/21 00:08 RBC Morphology Normal 09/15/21 00:08 Dimorphic RBCs Not Reportable 09/15/21 00:08 Polychromasia Not Reportable 09/15/21 00:08 Hypochromasia Not Reportable 09/15/21 00:08 Poikilocytosis Not Reportable 09/15/21 00:08 Anisocytosis Not Reportable 09/15/21 00:08 Microcytosis Not Reportable 09/15/21 00:08 Macrocytosis Not Reportable 09/15/21 00:08 Spherocytes Not Reportable 09/15/21 00:08 Pappenheimer Bodies Not Reportable 09/15/21 00:08 Sickle Cells Not Reportable 09/15/21 00:08 Target Cells Not Reportable 09/15/21 00:08 Tear Drop Cells Not Reportable 09/15/21 00:08 Ovalocytes Not Reportable 09/15/21 00:08 Helmet Cells Not Reportable 09/15/21 00:08 [place] Bodies Not Reportable 09/15/21 00:08 [place] Rings Not Reportable 09/15/21 00:08 Chantal Cells Not Reportable 09/15/21 00:08 Bite Cells Not Reportable 09/15/21 00:08 Crenated Cell Not Reportable 09/15/21 00:08 Elliptocytes Not Reportable 09/15/21 00:08 Acanthocytes (Spur) Not Reportable 09/15/21 00:08 Rouleaux Not Reportable 09/15/21 00:08 Hemoglobin C Crystals Not Reportable 09/15/21 00:08 Schistocytes Not Reportable 09/15/21 00:08 Malaria parasites Not Reportable 09/15/21 00:08 Alejandro Bodies Not Reportable 09/15/21 00:08 Hem Pathologist Commnt No 09/15/21 00:08 PT 16.4 Sec. (12.2-14.9) H 09/14/21 15:35 INR 1.19 (0.87-1.13) H 09/14/21 15:35 APTT 26.6 Sec. (24.2-36.6) 09/14/21 15:35 D-Dimer 2074.63 ng/mlDDU (0-234) H 09/18/21 04:00 ABG pH 7.501 (7.320-7.450) H 09/16/21 04:09 POC ABG pCO2 30.5 mmHg (32.0-48.0) L 09/16/21 04:09 ABG pCO2 42.6 mm Hg 09/14/21 16:30 POC ABG pO2 148.3 mmHg (83-108) H 09/16/21 04:09 ABG pO2 376.5 mm Hg (80.0-90.0) H 09/14/21 16:30 POC ABG HCO3 23.3 09/16/21 04:09 ABG HCO3 19.7 mmol/L (20.0-26.0) L 09/14/21 16:30 ABG O2 Saturation 99.4 (0-100) 09/16/21 04:09 ABG O2 Content 21.0 (0.0-44) 09/14/21 16:30 POC ABG Base Excess 1.1 09/16/21 04:09 ABG Base Excess -6.7 mmol/L (-2.0-3.0) L 09/14/21 16:30 ABG Hemoglobin 14.5 (12.0-17.5) 09/16/21 04:09 ABG Oxyhemoglobin 98.7 (94-98) H 09/16/21 04:09 ABG Carboxyhemoglobin 1.1 % (0.0-5.0) 09/14/21 16:30 ABG Methemoglobin 0.2 (0.0-1.5) 09/16/21 04:09 ABG Sodium 136.7 mmol/L (136.0-145.0) 09/16/21 04:09 ABG Potassium 3.3 mmol/L (3.40-4.50) L 09/16/21 04:09 ABG Chloride 104.0 mmol/L (98-107) 09/16/21 04:09 ABG Glucose 130 mg/dL (65-95) H 09/16/21 04:09 Oxyhemoglobin 97.8 % (95.0-99.0) 09/14/21 16:30 Carboxyhemoglobin 0.5 (0.5-1.5) 09/16/21 04:09 FiO2 100 % 09/14/21 16:30 FiO2 % 35.0 09/16/21 04:09 Sodium 144 mmol/L (137-145) 09/19/21 04:28 Potassium 4.0 mmol/L (3.6-5.0) 09/19/21 04:28 Chloride 106.0 mmol/L (98-107) 09/19/21 04:28 Carbon Dioxide 26 mmol/L (22-30) 09/19/21 04:28 Anion Gap 16 mmol/L 09/19/21 04:28 BUN 26 mg/dL (9-20) H 09/19/21 04:28 Creatinine 0.9 mg/dL (0.8-1.3) 09/19/21 04:28 Estimated GFR > 60 ml/min 09/19/21 04:28 BUN/Creatinine Ratio 29 % 09/19/21 04:28 Glucose 100 mg/dL (75-100) 09/19/21 04:28 POC Glucose 86 mg/dL (70-105) 09/21/21 08:01 Hemoglobin A1c 5.8 % (4-6) 09/15/21 17:39 Calcium 8.6 mg/dL (8.4-10.2) 09/19/21 04:28 Phosphorus 2.70 mg/dL (2.5-4.5) 09/18/21 04:00 Magnesium 2.10 mg/dL (1.7-2.3) 09/18/21 04:00 Ferritin 311.4 ng/mL (30.0-300.0) H 09/18/21 04:00 Total Bilirubin 0.30 mg/dL (0.1-1.2) 09/19/21 04:28 Direct Bilirubin < 0.2 mg/dL (0-0.2) 09/14/21 15:35 Indirect Bilirubin 0.1 mg/dL 09/14/21 15:35 AST 86 units/L (5-40) H 09/19/21 04:28 ALT 130 units/L (7-56) H 09/19/21 04:28 Alkaline Phosphatase 65 units/L (35-129) 09/19/21 04:28 Lactate Dehydrogenase 857 units/L (91-180) H 09/18/21 04:00 Troponin T 12.440 ng/mL (0.00-0.029) H* D 09/15/21 03:36 C-Reactive Protein 5.50 mg/dL (0.00-1.30) H 09/18/21 04:00 Total Protein 6.3 g/dL (6.3-8.2) 09/19/21 04:28 Albumin 3.6 g/dL (3.9-5) L 09/19/21 04:28 Albumin/Globulin Ratio 1.3 % 09/19/21 04:28 Triglycerides 110 mg/dL (2-149) 09/14/21 20:33 Cholesterol 213 mg/dL (50-199) H 09/14/21 20:33 LDL Cholesterol Direct 134 mg/dL (50-130) H 09/14/21 20:33 HDL Cholesterol 67 mg/dL (40-59) H 09/14/21 20:33 Cholesterol/HDL Ratio 3.17 % 09/14/21 20:33 Procalcitonin 6.42 ng/mL (<0.15) 09/15/21 17:39 Arterial Blood Glucose 130 mg/dL (65-95) H 09/16/21 04:09 Arterial Blood Ionized Calcium 4.5 mg/dL (4.6-5.3) L 09/16/21 04:09 Urine Color Yellow (Yellow) 09/14/21 Unknown Urine Turbidity Slightly-cloudy (Clear) 09/14/21 Unknown Urine pH 6.0 (5.0-7.0) 09/14/21 Unknown Ur Specific [place] 1.028 (1.003-1.030) 09/14/21 Unknown Urine Protein 100 mg/dl mg/dL (Negative) 09/14/21 Unknown Urine Glucose (UA) Neg mg/dL (Negative) 09/14/21 Unknown Urine Ketones Tr mg/dL (Negative) 09/14/21 Unknown Urine Blood Neg (Negative) 09/14/21 Unknown Urine Nitrite Neg (Negative) 09/14/21 Unknown Ur Reducing Substances Not Reportable 09/14/21 Unknown Urine Bilirubin Neg (Negative) 09/14/21 Unknown Urine Ictotest Not Reportable 09/14/21 Unknown Urine Urobilinogen < 2.0 mg/dL (<2.0) 09/14/21 Unknown Ur Leukocyte Esterase Sm (Negative) 09/14/21 Unknown Urine WBC (Auto) 50.0 /HPF (0.0-6.0) H 09/14/21 Unknown Urine RBC (Auto) 12.0 /HPF (0.0-6.0) 09/14/21 Unknown U Epithel Cells (Auto) < 1.0 /HPF (0-13.0) 09/14/21 Unknown Urine Bacteria (Auto) 2+ /HPF (Negative) 09/14/21 Unknown Urine Mucus 3+ /HPF 09/14/21 Unknown Urine Yeast (Budding) Few /HPF 09/14/21 Unknown Urine Osmolality 1005 Mosm/kg 09/15/21 09:46 Urine Creatinine 187.8 mg/dL (0.1-20.0) H 09/15/21 09:46 Urine Sodium 87 mmol/L 09/15/21 09:46 Urine Urea Nitrogen 1272 09/15/21 09:46 Salicylates < 0.3 mg/dL (2.8-20.0) L 09/14/21 15:35 Urine Opiates Screen Negative 09/14/21 Unknown Urine Methadone Screen Negative 09/14/21 Unknown Acetaminophen 5.0 ug/mL (10.0-30.0) L 09/14/21 15:35 Ur Barbiturates Screen Negative 09/14/21 Unknown Ur Phencyclidine Scrn Negative 09/14/21 Unknown Ur Amphetamines Screen Negative 09/14/21 Unknown U Benzodiazepines Scrn Negative 09/14/21 Unknown Urine Cocaine Screen Negative 09/14/21 Unknown U Marijuana (THC) Screen Positive 09/14/21 Unknown Drugs of Abuse Note Disclamer 09/14/21 Unknown Coronavirus (PCR) Positive (Negative) A 09/15/21 Unknown Microbiology: Microbiology 09/16/21 08:25 Peripheral/Venous Blood Culture - Preliminary NO GROWTH AFTER 4 DAYS 09/16/21 08:25 Peripheral/Venous Blood Culture - Preliminary NO GROWTH AFTER 4 DAYS Alvarado/IV: Voiding Method Toilet Active Medications - Current Medications Current Medications: Generic Name Dose Route Start Last Admin Trade Name Freq PRN Reason Stop Dose Admin Acetaminophen 650 mg 09/14/21 18:53 09/20/21 21:51 Acetaminophen 325 Mg Tab PO 650 mg Q4H PRN Administration Pain MILD(1-3)/Fever >100.5/BHATIA Hydrocodone Bitart/Acetaminophen 1 each 09/14/21 18:05 Hydrocodone/Acetaminophen 5-325 Mg Tab PO Q6H PRN Pain, Moderate (4-6) Ascorbic Acid 500 mg 09/16/21 10:00 09/21/21 09:10 Ascorbic Acid 500 Mg Tab PO 500 mg QDAY CASSANDRA Administration Aspirin 162 mg 09/19/21 12:00 09/21/21 09:10 Aspirin 81 Mg Tab Chew PO 162 mg QDAY CASSANDRA Administration Atorvastatin Calcium 40 mg 09/19/21 22:00 09/20/21 21:50 Atorvastatin 40 Mg Tab PO 40 mg QHS CASSANDRA Administration Cholecalciferol 5,000 unit 09/16/21 10:00 09/21/21 09:10 Cholecalciferol (Vit D3) 5,000 Unit Tab PO 5,000 unit DAILY CASSANDRA Administration Clopidogrel Bisulfate 75 mg 09/19/21 12:00 09/21/21 09:10 Clopidogrel 75 Mg Tab PO 75 mg QDAY CASSANDRA Administration Dexamethasone 6 mg 09/21/21 10:00 09/21/21 09:09 Dexamethasone 2 Mg Tab PO 09/25/21 10:01 6 mg Q24HR CASSANDRA Administration Dextrose 50 ml 09/15/21 16:49 Dextrose 50% In Water (25gm) 50 Ml Syringe IV Q30MIN PRN Hypoglycemia Protocol Famotidine 20 mg 09/19/21 12:00 09/21/21 09:10 Famotidine 20 Mg Tab PO 20 mg BID CASSANDRA Administration Heparin Sodium (Porcine) 5,000 unit 09/14/21 22:00 09/21/21 09:09 Heparin 5,000 Unit/1 Ml Vial SUB-Q 5,000 unit Q12HR [facility] Administration Insulin Human Lispro 0 unit 09/17/21 22:00 09/21/21 07:30 Insulin Lispro 100 Unit/Ml SUB-Q Not Given ACHS [facility] Protocol Lisinopril 5 mg 09/15/21 10:00 09/21/21 09:09 Lisinopril 5 Mg Tab PO 5 mg QDAY [facility] Administration Melatonin 5 mg 09/18/21 22:00 09/20/21 21:51 Melatonin 5 Mg Tab PO 5 mg QHS [facility] Administration Metoclopramide HCl 10 mg 09/14/21 18:53 Metoclopramide 10 Mg/2 Ml Inj IV Q6H PRN Nausea And Vomiting Metoprolol Tartrate 50 mg 09/19/21 12:00 09/21/21 09:11 Metoprolol Tartrate 50 Mg Tab PO 50 mg BID [facility] Administration Nitroglycerin 0.4 mg 09/15/21 06:00 09/21/21 06:59 Nitroglycerin 0.4 Mg Patch 24hr TD 0.4 mg DAILY@0600 [facility] Administration Ondansetron HCl 4 mg 09/14/21 18:53 Ondansetron 4 Mg/2 Ml Inj IV Q8H PRN Nausea And Vomiting Oxycodone/Acetaminophen 1 tab 09/14/21 18:53 Oxycodone /Acetaminophen 5-325mg Tab PO Q6H PRN Pain, Moderate (4-6) Senna 8.8 mg 09/15/21 22:00 09/20/21 21:52 Sennosides Oral Liqd 8.8 Mg/5 Ml Oral Liqd PO 8.8 mg QHS [facility] Administration Sodium Chloride 10 ml 09/14/21 22:00 09/21/21 09:11 Sodium Chloride 0.9% 10 Ml Flush Syringe IV 10 ml BID CASSANDRA Administration Sodium Chloride 10 ml 09/14/21 18:53 Sodium Chloride 0.9% 10 Ml Flush Syringe IV PRN PRN LINE FLUSH Zinc Sulfate 220 mg 09/15/21 22:00 09/21/21 09:08 Zinc Sulfate 220 Mg Cap PO 220 mg BID CASSANDRA Administration Nutrition/Malnutrition Assess - Dietary Evaluation Nutrition/Malnutrition Findings: Nutrition Notes Start: 09/15/21 09:13 Freq: Status: Active Protocol: Document 09/18/21 17:33 PATITO (Rec: 09/18/21 17:40 PATITO [id number]) Nutrition Notes Initial or Follow up Brief Note Current Diet Mechanical Soft Diet (since D 09/17). Height 5 ft 7 in Weight 74 kg [place] Body Weight (kg) 67.27 BMI 25.5 Weight change and time frame Pt reported to be unsure of having loss body weight SOLE TRIMMER. No body weight change reported in 3 days. Weight Status Appropriate Subjective/Other Information RD consult for routinr F/U on Dietary advancement. Pt now on PO diet. No report available on %PO intake of meals at the time. Percent of energy/protein needs met: Prescribed Mechanical Soft Diet provides for energy/ protein needs (2,048 Kcal/97 g ) during LOS. #1 Nutrition Diagnosis Inadequate oral intake Comments: Pt now on PO diet Diagnosis Progress(for reassessment Resolved documentation) Nutrition Intervention Follow-Up By: 09/25/21 Additional Comments Continue monitoring food tolerance, %PO intake of meals , and BM.
--- NOTE | 2021-09-21 10:25 | Progress Note ---
Assessment and Plan (1) STEMI (ST elevation myocardial infarction) Current Visit: Yes Status: Acute Qualifiers: Involved coronary artery: right coronary artery Qualified Code(s): I21.11 - ST elevation (STEMI) myocardial infarction involving right coronary artery Plan to address problem: acute anterolateral wall myocardial infarction, complicated by ventricular fibrillation arrest in the emergency room. -- S/p PCI to 100% proximal LAD -- c/w DAPT (ASA 81 mg daily and Plavix 75 mg daily) -- c/w statin (2) Ischemia cardiomyopathy -- Newly diagnosed HFrEF (LVEF 20%) -- please convert Metoprolol titrate 50 mg bid to Metoprolol succinate 100 mg daily upon discharge --c/w Lisinopril and will continue to follow up patient as outpatient and optimize his GDMT -- Lifevest was inplaced and instructed Subjective Date of service: 09/21/21 Interval history: No active cardiac complaints. No chest pain; Patient is being instructed for lifevest Objective Vital Signs Temp Pulse Pulse Resp BP Pulse Ox 09/21/21 09:11 95 H 120/78 09/21/21 09:09 95 H 120/78 09/21/21 06:59 59 L 132/53 09/21/21 06:01 98.4 F 59 L 20 132/53 92 09/21/21 05:56 98.3 F 68 20 119/85 99 09/21/21 03:58 68 09/21/21 02:04 96 09/20/21 22:00 64 96 09/20/21 21:49 64 132/80 09/20/21 21:47 98.8 F 64 20 132/80 96 09/20/21 16:57 98.1 F 77 18 125/84 96 09/20/21 12:30 98.1 F 69 18 121/78 96 - Physical Examination General: No Apparent Distress HEENT: Positive: PERRL Neck: Positive: neck supple Neuro: Positive: Grossly Intact Abdomen: Positive: Unremarkable, Soft Skin: Positive: Clear Extremities: Present: normal. Absent: edema - Imaging and Cardiology EKG: report reviewed (ST elevayion )
[2021-09-21 13:43] VITALS: BP 115/81
== END 2021-09-21 11:30 | disposition home or self-care (01) | DRG 246 ==
LOC: ED 15:10 → CC1 18:41 → 3A 09-19 00:04
PROVIDERS: ADMIT Internal Medicine; ATTEND Internal Medicine
PROC: 4A023N7 Measurement of Cardiac Sampling and Pressure, Left Heart, Percutaneous Approach (ICD-10-PCS; principal; 2021-09-14)
PROC: B2111ZZ Fluoroscopy of Multiple Coronary Arteries using Low Osmolar Contrast (ICD-10-PCS; 2021-09-14)
PROC: 027034Z Dilation of Coronary Artery, One Artery with Drug-eluting Intraluminal Device, Percutaneous Approach (ICD-10-PCS; 2021-09-14)
PROC: 5A1945Z Respiratory Ventilation, 24-96 Consecutive Hours (ICD-10-PCS; 2021-09-14)
PROC: 0BH17EZ Insertion of Endotracheal Airway into Trachea, Via Natural or Artificial Opening (ICD-10-PCS; 2021-09-14)
PROC: XW033E5 Introduction of Remdesivir Anti-infective into Peripheral Vein, Percutaneous Approach, New Technology Group 5 (ICD-10-PCS; 2021-09-16)
PROC: 4A033R1 Measurement of Arterial Saturation, Peripheral, Percutaneous Approach (ICD-10-PCS; 2021-09-16)
DX: I21.11 ST elevation (STEMI) myocardial infarction involving right coronary artery (principal); U07.1 COVID-19; J12.82 Pneumonia due to coronavirus disease 2019; N17.0 Acute kidney failure with tubular necrosis; J96.01 Acute respiratory failure with hypoxia; I46.9 Cardiac arrest, cause unspecified; I42.0 Dilated cardiomyopathy; E87.2 Acidosis; F41.9 Anxiety disorder, unspecified; I48.91 Unspecified atrial fibrillation; E87.5 Hyperkalemia; D72.829 Elevated white blood cell count, unspecified; I25.5 Ischemic cardiomyopathy
CPT/HCPCS: 36415; 36600; 70450; 70551; 71045; 71275; 74018; 74177; 76770; 80048; 80053; 80061; 80076; 80307; 80320; 81001; 82570; 82728; 82803; 82805; 82962; 83036; 83615; 83735; 83935; 84100; 84145; 84300; 84484; 84520; 85007; 85014; 85018; 85025; 85027; 85379; 85610; 85730; 86140; 87040; 87070; 87086; 87205; 92941; 93005; 93306; 93458; 93970; 94002; 94003; 94760; 99291; G0378; J3490; J9280; Q0162; Q9967; C1725; C1769; C1874; C1887; C1894; C9606; G0480; J0171; J0282; J0696; J1100; J1265; J1644; J1815; J2060; J2250; J2704; J2920; J3010; J3246; J3480; J7030; J7050; J7120; J8540; U0003